=== PATIENT | female | born 1940 | race Caucasian/White ===

== ENCOUNTER 2018-04-15 19:04 | Inpatient (IN) ==
[2018-04-15 20:05] LABS: Basophils % 0.1 %; Eosinophils # 0.1 K/mcL (0.0-0.6); Eosinophils % 0.7 %; Hematocrit 34.5 % (35.3-44.9); Hemoglobin 10.1 g/dL (11.5-15.4); Immature Granulocytes % 0.5 % (0-4); Lymphocytes # 1.4 K/mcL (0.6-4.6); Lymphocytes % 18.6 %; Mean Corpuscular HGB Conc 29.3 g/dL (31.6-35.5); Mean Corpuscular Hemoglobin 17.8 pg (28.0-33.3); Mean Platelet Volume 8.8 fL (9.4-12.4); Monocytes # 1.1 K/mcL (0.0-1.3); Monocytes % 14.6 %; Platelet Count 411 K/mcL (140-400); Red Blood Count 5.66 M/mcL (3.82-4.97); Red Cell Distribution Width 21.2 % (11.5-14.5); Segmented Neutrophils % 65.5 %
--- NOTE | 2018-04-15 20:06 | Emergency Department Note ---
Disposition Clinical Impression: Colonic mass, Peritoneal carcinomatosis Bowel obstruction Qualifiers: Intestinal obstruction type: unspecified Intestinal obstruction extent: unspecified extent Qualified Code(s): K56.609 - Unspecified intestinal obstruction, unspecified as to partial versus complete obstruction Disposition: Admitted As Inpatient Condition: Fair Referrals: Lizz Ariza CNP [Primary Care Provider] - Sandeep Singh Jr, MD [Family Provider] - Forms: ED Satisfaction Letter, Work/School Release Time of Disposition: 20:16 Abdominal Pain HPI - General Chief Complaint: ED Abdominal Pain Stated Complaint: bowel blockage. Time Seen by Provider: 04/15/18 19:23 Source: patient - History of Present Illness HPI Narrative: I have personally seen and evaluated the patient along with the Medical Student. I have reviewed and confirmed the history of present illness, review of systems, family, medical, and surgical history and agree with the documentation except as documented below. Pain Scale: 2 - Related Data Home Medications Medication Instructions Recorded Confirmed Loratadine [Claritin] 10 mg PO DAILY 04/15/18 04/15/18 Ranitidine HCl [Acid Investigator Operator] 75 mg PO DAILY PRN 04/15/18 04/15/18 Allergies Allergy/AdvReac Type Severity Reaction Status Date / Time No Known Allergies Allergy Verified 04/15/18 19:53 Review of Systems: As reviewed in the HPI. All other systems reviewed are negative or normal. Abdominal Pain PMH - Past Medical History Medical history: Reports: GERD Female Surgical History: Reports: hysterectomy - Social History Smoking status: Never smoker Alcohol use: Reports: none Drug use: Reports: none Physical Exam CONSTITUTIONAL: [chronically ill appearing, alert and in no acute distress] EYES: [EOMI, clear conjunctiva, PERRLA] HENT: [Normocephalic, atraumatic, moist mucus membranes, normal oropharynx] NECK: [normal inspection, full ROM, trachea midline, no obvious swelling] PULMONARY: [normal lung sounds bilaterally, normal chest rise and fall, no respiratory distress or stridor, no wheezes, no rales, no rhonchi CARDIOVASCULAR: [regular rate, regular rhythm, normal heart sounds, no murmurs, distal extremities are warm and well perfused] GASTROINSTESTINAL: [soft, mild/mod tender in R/RLQ abd, non-rigid, mildly distended, no guarding, no rebound, normal bowel sounds] GENITOURINARY/RECTAL: [deferred] NEUROLOGIC: [Alert, oriented x3, normal speech, moves all extremities] EXTREMITIES: [Normal inspection, full ROM, no tenderness, no pedal edema, normal capillary refill] MUSCULOSKELETAL: [no gross deformities, atraumatic] SKIN: [No cyanosis, no diaphoresis, pallor, warm, no rash] PSYCHIATRIC: [normal mood and affect] - General Limitations: no limitations General appearance: alert, in no apparent distress Course Course Narrative: Patient presenting with large infiltrating mass causing colonic and small bowel obstruction with liver metastases and peritoneal carcinomatosis. Sent off for a screening labs including CVA, haptoglobin, LDH and uric acid. Patient comfortable currently. Has not been vomiting today. We will not place an NG tube at this time. She has had some pencil thin stools and weight loss recently. Did discuss that we are very concerned this is a malignant lesion and that she may have metastatic disease. She is aware and is agreeable to proceed with surgery and treatment as needed. Patient to be admitted the hospitalist service and was accepted. - Consultations Consultation #1: Spoke with Dr. Loving, will be happy to see in consult in the AM. Time: 20:06 Vital Signs Temperature 98 F 04/15/18 19:25 Pulse Rate 118 04/15/18 19:25 Respiratory Rate 16 04/15/18 19:25 Blood Pressure 158/83 04/15/18 19:25 O2 Sat by Pulse Oximetry 97 04/15/18 19:25 Temperature 98 F 04/15/18 19:44 Pulse Rate 118 04/15/18 19:44 Respiratory Rate 16 04/15/18 19:44 Blood Pressure 158/83 04/15/18 19:44 O2 Sat by Pulse Oximetry 97 04/15/18 19:44 Oxygen Delivery Oxygen Delivery Room Air Abdominal Pain - Lab Data Result diagrams: 04/15/18 19:51 Lab Results 04/15/18 Range/Units 19:51 WBC 7.7 (4.3-11.1) K/mcL RBC 5.66 H (3.82-4.97) M/mcL Hgb 10.1 L (11.5-15.4) g/dL Hct 34.5 L (35.3-44.9) % MCV 61.0 L (83.0-100.0) fL MCH 17.8 L (28.0-33.3) pg MCHC 29.3 L (31.6-35.5) g/dL RDW 21.2 H (11.5-14.5) % Plt Count 411 H (140-400) K/mcL MPV 8.8 L (9.4-12.4) fL
--- NOTE | 2018-04-15 20:07 | Emergency Department Note ---
Disposition Clinical Impression: Colonic mass, Peritoneal carcinomatosis Bowel obstruction Qualifiers: Intestinal obstruction type: unspecified Intestinal obstruction extent: unspecified extent Qualified Code(s): K56.609 - Unspecified intestinal obstruction, unspecified as to partial versus complete obstruction Disposition: Admitted As Inpatient Condition: Fair Referrals: Lizz Ariza CNP [Primary Care Provider] - Sandeep Singh Jr, MD [Family Provider] - Forms: ED Satisfaction Letter, Work/School Release Abdominal Pain HPI - General Chief Complaint: ED Abdominal Pain Stated Complaint: bowel blockage. Time Seen by Provider: 04/15/18 19:23 Source: patient Mode of arrival: ambulatory Vital Signs Reviewed: Yes - History of Present Illness HPI Narrative: The patient is a 77 year old female that presents with abdominal pain, mass found on CT, and bowel obstruction. Per patient's report, starting 4 weeks ago she started having intermittent episodes of abdominal pain that are crampy in nature and shoot through out the whole abdomen, but is the most painful in the right lower quadrant. She rates her pain a 1/10 at present but says when she get the episodes they usually get as bad as a 5/10. The pain does not radiate. There are no exacerbating and alleviating factors. Patient went and saw Dr. Lizz Muñiz who sent her for a abdominal CT. Her abdominal CT showed large infiltrating mass of the proximal ascending colon resulting in colon and small bowel obstruction with suspected liver metastases. There is peritoneal carcinomatosis with multiple peritoneal tumor nodules and small amount of ascites. Enlarged retroperitoneal lymph node and a few mildly enlarged mesenteric nodes are present. She was called just prior to arrival instructed to come to the ED for further management. Patient also admits to nausea, and vomiting over the past few weeks but did not vomit today. She also admits to decreased appetite and PO intake, 7 lb of weight loss over the past 3 weeks, fatigue, Pencil thin stool. She denies any headache, dizziness, changes in vision, chest pain, shortness of breath, back pain, hematuria, hematochezia, melena, numbness, tingling, and weakness. Pain Scale: 2 - Related Data Home Medications Medication Instructions Recorded Confirmed Loratadine [Claritin] 10 mg PO DAILY 04/15/18 04/15/18 Ranitidine HCl [Acid Profiler Hand] 75 mg PO DAILY PRN 04/15/18 04/15/18 Allergies Allergy/AdvReac Type Severity Reaction Status Date / Time No Known Allergies Allergy Verified 04/15/18 19:53 Constitutional: Reports: weakness, weight change. Denies: fever, chills Eyes: Denies: eye pain, vision change ENT ED: Denies: throat pain, congestion Cardiovascular: Denies: chest pain, palpitations, syncope Respiratory: Denies: cough, dyspnea Gastrointestinal: Reports: abdominal pain, nausea, vomiting. Denies: diarrhea, hematemesis, melena, hematochezia Genitourinary: Denies: dysuria, frequency, hematuria Musculoskeletal: Denies: back pain, neck pain Integumentary: Denies: rash, lesions Neurological: Denies: headache, weakness, numbness, paresthesias Endocrine: Reports: fatigue Abdominal Pain PMH - Past Medical History Medical history: Reports: GERD Female Surgical History: Reports: hysterectomy - Social History Smoking status: Never smoker Alcohol use: Reports: none Drug use: Reports: none Physical Exam - General Limitations: no limitations General appearance: alert, in no apparent distress - Head Head exam: atraumatic, normocephalic, normal inspection - Eye Eye exam: Present: normal appearance. Absent: scleral icterus, conjunctival injection - ENT ENT exam: mucous membranes moist, normal external ear exam - Neck Neck exam: Present: normal inspection, full ROM, trachea midline - Chest Chest inspection: Present: normal inspection, symmetric chest wall rise - Respiratory Respiratory exam: Present: normal lung sounds bilaterally. Absent: respiratory distress, wheezes - Cardiovascular Cardiovascular exam: Present: regular rate, normal rhythm, normal heart sounds. Absent: systolic murmur, diastolic murmur, rubs, gallop - Abdominal Exam Abdominal exam: Present: soft, distention, normal bowel sounds. Absent: guarding, rigidity Abdominal tenderness: Present: RLQ, mild - Extremities Exam Extremities exam: Present: normal inspection, full ROM - Neurological Exam Neurological exam: Present: alert, oriented X3 - Psychiatric Psychiatric exam: Present: normal affect, normal mood - Skin Skin exam: Present: warm, dry, intact Course Course Narrative: Pt is a 77 year old female that presented with a large ascending colon mass causing small and large bowel obstruction with suspected metastasis to the liver. CBC, CEA, Hepatic panel, LDH, haptoglobin, lipase, PTT/PT/INR, uric acid , UA were ordered. - Reevaluation(s) Reevaluation #1: Case was discussed with surgery who will evaluate the patient in the hospital. Time: 20:05 Vital Signs Temperature 98 F 04/15/18 19:25 Pulse Rate 118 04/15/18 19:25 Respiratory Rate 16 04/15/18 19:25 Blood Pressure 158/83 04/15/18 19:25 O2 Sat by Pulse Oximetry 97 04/15/18 19:25 Temperature 98 F 04/15/18 19:44 Pulse Rate 118 04/15/18 19:44 Respiratory Rate 16 04/15/18 19:44 Blood Pressure 158/83 04/15/18 19:44 O2 Sat by Pulse Oximetry 97 04/15/18 19:44 Oxygen Delivery Oxygen Delivery Room Air Abdominal Pain - Lab Data Result diagrams: 04/15/18 19:51 04/15/18 19:51 Lab Results 04/15/18 04/15/18 04/15/18 Range/Units 19:51 19:51 19:51 WBC 7.7 (4.3-11.1) K/mcL RBC 5.66 H (3.82-4.97) M/mcL Hgb 10.1 L (11.5-15.4) g/dL Hct 34.5 L (35.3-44.9) % MCV 61.0 L (83.0-100.0) fL MCH 17.8 L (28.0-33.3) pg MCHC 29.3 L (31.6-35.5) g/dL RDW 21.2 H (11.5-14.5) % Plt Count 411 H (140-400) K/mcL MPV 8.8 L (9.4-12.4) fL Immature Gran % 0.5 (0-4) % Seg Neutrophils % 65.5 % Lymphocytes % 18.6 % Monocytes % 14.6 % Eosinophils % 0.7 % Basophils % 0.1 % Neutrophils # 5.0 (1.6-8.9) K/mcL Lymphocytes # 1.4 (0.6-4.6) K/mcL Monocytes # 1.1 (0.0-1.3) K/mcL Eosinophils # 0.1 (0.0-0.6) K/mcL Basophils # 0.0 (0.0-0.2) K/mcL Platelet Estimate Increased H (Normal) Anisocytosis 2+ A (Not Present) Microcytosis Present A (Not Present) PT 13.5 H (9.4-12.1) Seconds INR 1.2 APTT 32.2 (26.0-36.0) Seconds Sodium 127 L (136-145) mEq/L Potassium 4.0 (3.5-5.1) mEq/L Chloride 94 L (98-107) mEq/L Carbon Dioxide 24 (23-29) mEq/L BUN 10 (8-23) mg/dL Creatinine 0.59 L (0.60-1.20) mg/dL Est GFR ( Amer) > 60 (> 60) Est GFR (Non-Af Amer) > 60 (> 60) BUN/Creatinine Ratio 17 (6-26) Glucose 100 (70-105) mg/dL Calculated Osmolality 263 L (280-300) Uric Acid (2.3-7.6) mg/dL Calcium 9.3 (8.6-10.3) mg/dL Total Bilirubin 0.6 (0.3-1.0) mg/dL Direct Bilirubin 0.2 (0.0-0.2) mg/dL Indirect Bilirubin 0.4 (0.0-1.2) mg/dL AST 15 (13-39) Units/L ALT 10 (7-52) Units/L Alkaline Phosphatase 86 (34-104) Units/L Lactate Dehydrogenase (140-271) Units/L Serum Total Protein 6.5 (6.4-8.9) g/dL Albumin 4.0 (3.5-5.7) g/dL Globulin 2.5 (2.4-3.5) g/dL Albumin/Globulin Ratio 1.6 (1.1-2.2) Lipase 15 (11-82) Units/L 04/15/18 Range/Units 19:51 WBC (4.3-11.1) K/mcL RBC (3.82-4.97) M/mcL Hgb (11.5-15.4) g/dL Hct (35.3-44.9) % MCV (83.0-100.0) fL MCH (28.0-33.3) pg MCHC (31.6-35.5) g/dL RDW (11.5-14.5) % Plt Count (140-400) K/mcL MPV (9.4-12.4) fL Immature Gran % (0-4) % Seg Neutrophils % % Lymphocytes % % Monocytes % % Eosinophils % % Basophils % % Neutrophils # (1.6-8.9) K/mcL Lymphocytes # (0.6-4.6) K/mcL Monocytes # (0.0-1.3) K/mcL Eosinophils # (0.0-0.6) K/mcL Basophils # (0.0-0.2) K/mcL Platelet Estimate (Normal) Anisocytosis (Not Present) Microcytosis (Not Present) PT (9.4-12.1) Seconds INR APTT (26.0-36.0) Seconds Sodium (136-145) mEq/L Potassium (3.5-5.1) mEq/L Chloride (98-107) mEq/L Carbon Dioxide (23-29) mEq/L BUN (8-23) mg/dL Creatinine (0.60-1.20) mg/dL Est GFR ( Amer) (> 60) Est GFR (Non-Af Amer) (> 60) BUN/Creatinine Ratio (6-26) Glucose (70-105) mg/dL Calculated Osmolality (280-300) Uric Acid 3.4 (2.3-7.6) mg/dL Calcium (8.6-10.3) mg/dL Total Bilirubin (0.3-1.0) mg/dL Direct Bilirubin (0.0-0.2) mg/dL Indirect Bilirubin (0.0-1.2) mg/dL AST (13-39) Units/L ALT (7-52) Units/L Alkaline Phosphatase (34-104) Units/L Lactate Dehydrogenase 144 (140-271) Units/L Serum Total Protein (6.4-8.9) g/dL Albumin (3.5-5.7) g/dL Globulin (2.4-3.5) g/dL Albumin/Globulin Ratio (1.1-2.2) Lipase (11-82) Units/L
[2018-04-15 20:11] LABS: INR 1.2; Prothrombin Time 13.5 Seconds (9.4-12.1)
[2018-04-15 20:13] LABS: Activated Partial Thrombo Time 32.2 Seconds (26.0-36.0)
--- NOTE | 2018-04-15 20:17 | Emergency Department Note ---
Disposition Clinical Impression: Bowel obstruction, Colonic mass, Peritoneal carcinomatosis Disposition: Admitted As Inpatient Condition: Fair General Adult HPI - General Chief complaint: ED Abdominal Pain Stated complaint: bowel blockage. Time Seen by Provider: 04/15/18 19:23 Source: patient Mode of arrival: ambulatory Limitations: no limitations Nursing Notes Reviewed: Yes Vital Signs Reviewed: Yes - History of Present Illness Pain Scale: 2 - Related Data Home Medications Medication Instructions Recorded Confirmed Loratadine [Claritin] 10 mg PO DAILY 04/15/18 04/16/18 Ranitidine HCl [Acid Cherry Picker Operator] 75 mg PO DAILY PRN 04/15/18 04/16/18 Allergies Allergy/AdvReac Type Severity Reaction Status Date / Time No Known Allergies Allergy Verified 04/15/18 19:53 Constitutional: Reports: weakness, weight change. Denies: fever, chills Eyes: Denies: eye pain, vision change ENT ED: Denies: throat pain, congestion Cardiovascular: Denies: chest pain, palpitations, syncope Respiratory: Denies: cough, dyspnea Gastrointestinal: Reports: abdominal pain, nausea, vomiting. Denies: diarrhea, hematemesis, melena, hematochezia Genitourinary: Denies: dysuria, frequency, hematuria Musculoskeletal: Denies: back pain, neck pain Integumentary: Denies: rash, lesions Neurological: Denies: headache, weakness, numbness, paresthesias Endocrine: Reports: fatigue Past Medical History - Past Medical History Medical history: Reports: GERD - Social History Smoking Status: Never smoker Alcohol use: Reports: none Drug use: Reports: none Physical Exam - General Limitations: no limitations General appearance: alert, in no apparent distress Course Vital Signs Temperature 98 F 04/15/18 19:25 Pulse Rate 118 04/15/18 19:25 Respiratory Rate 16 04/15/18 19:25 Blood Pressure 158/83 04/15/18 19:25 O2 Sat by Pulse Oximetry 97 04/15/18 19:25 Temperature 97.9 F 04/18/18 07:43 Pulse Rate 103 04/18/18 07:43 Respiratory Rate 16 04/18/18 07:43 Blood Pressure 145/80 04/18/18 07:43 O2 Sat by Pulse Oximetry 94 04/18/18 03:21 Oxygen Delivery Oxygen Delivery Room Air Medical Decision Making - Lab Data Result diagrams: 04/18/18 06:29 04/18/18 06:29 Lab Results 04/15/18 04/15/18 04/15/18 Range/Units 19:51 19:51 19:51 WBC 7.7 (4.3-11.1) K/mcL RBC 5.66 H (3.82-4.97) M/mcL Hgb 10.1 L (11.5-15.4) g/dL Hct 34.5 L (35.3-44.9) % MCV 61.0 L (83.0-100.0) fL MCH 17.8 L (28.0-33.3) pg MCHC 29.3 L (31.6-35.5) g/dL RDW 21.2 H (11.5-14.5) % Plt Count 411 H (140-400) K/mcL MPV 8.8 L (9.4-12.4) fL Immature Gran % 0.5 (0-4) % Seg Neutrophils % 65.5 % Lymphocytes % 18.6 % Monocytes % 14.6 % Eosinophils % 0.7 % Basophils % 0.1 % Neutrophils # 5.0 (1.6-8.9) K/mcL Lymphocytes # 1.4 (0.6-4.6) K/mcL Monocytes # 1.1 (0.0-1.3) K/mcL Eosinophils # 0.1 (0.0-0.6) K/mcL Basophils # 0.0 (0.0-0.2) K/mcL Platelet Estimate Increased H (Normal) Anisocytosis 2+ A (Not Present) Microcytosis Present A (Not Present) PT 13.5 H (9.4-12.1) Seconds INR 1.2 APTT 32.2 (26.0-36.0) Seconds Sodium 127 L (136-145) mEq/L Potassium 4.0 (3.5-5.1) mEq/L Chloride 94 L (98-107) mEq/L Carbon Dioxide 24 (23-29) mEq/L BUN 10 (8-23) mg/dL Creatinine 0.59 L (0.60-1.20) mg/dL Est GFR ( Amer) > 60 (> 60) Est GFR (Non-Af Amer) > 60 (> 60) BUN/Creatinine Ratio 17 (6-26) Glucose 100 (70-105) mg/dL Calculated Osmolality 263 L (280-300) Uric Acid (2.3-7.6) mg/dL Calcium 9.3 (8.6-10.3) mg/dL Total Bilirubin 0.6 (0.3-1.0) mg/dL Direct Bilirubin 0.2 (0.0-0.2) mg/dL Indirect Bilirubin 0.4 (0.0-1.2) mg/dL AST 15 (13-39) Units/L ALT 10 (7-52) Units/L Alkaline Phosphatase 86 (34-104) Units/L Lactate Dehydrogenase (140-271) Units/L Serum Total Protein 6.5 (6.4-8.9) g/dL Albumin 4.0 (3.5-5.7) g/dL Globulin 2.5 (2.4-3.5) g/dL Albumin/Globulin Ratio 1.6 (1.1-2.2) Lipase 15 (11-82) Units/L Carcinoembryonic Ag (Less than 5.0) ng/mL 04/15/18 04/15/18 Range/Units 19:51 19:51 WBC (4.3-11.1) K/mcL RBC (3.82-4.97) M/mcL Hgb (11.5-15.4) g/dL Hct (35.3-44.9) % MCV (83.0-100.0) fL MCH (28.0-33.3) pg MCHC (31.6-35.5) g/dL RDW (11.5-14.5) % Plt Count (140-400) K/mcL MPV (9.4-12.4) fL Immature Gran % (0-4) % Seg Neutrophils % % Lymphocytes % % Monocytes % % Eosinophils % % Basophils % % Neutrophils # (1.6-8.9) K/mcL Lymphocytes # (0.6-4.6) K/mcL Monocytes # (0.0-1.3) K/mcL Eosinophils # (0.0-0.6) K/mcL Basophils # (0.0-0.2) K/mcL Platelet Estimate (Normal) Anisocytosis (Not Present) Microcytosis (Not Present) PT (9.4-12.1) Seconds INR APTT (26.0-36.0) Seconds Sodium (136-145) mEq/L Potassium (3.5-5.1) mEq/L Chloride (98-107) mEq/L Carbon Dioxide (23-29) mEq/L BUN (8-23) mg/dL Creatinine (0.60-1.20) mg/dL Est GFR ( Amer) (> 60) Est GFR (Non-Af Amer) (> 60) BUN/Creatinine Ratio (6-26) Glucose (70-105) mg/dL Calculated Osmolality (280-300) Uric Acid 3.4 (2.3-7.6) mg/dL Calcium (8.6-10.3) mg/dL Total Bilirubin (0.3-1.0) mg/dL Direct Bilirubin (0.0-0.2) mg/dL Indirect Bilirubin (0.0-1.2) mg/dL AST (13-39) Units/L ALT (7-52) Units/L Alkaline Phosphatase (34-104) Units/L Lactate Dehydrogenase 144 (140-271) Units/L Serum Total Protein (6.4-8.9) g/dL Albumin (3.5-5.7) g/dL Globulin (2.4-3.5) g/dL Albumin/Globulin Ratio (1.1-2.2) Lipase (11-82) Units/L Carcinoembryonic Ag 1.1 (Less than 5.0) ng/mL Attestation Statement - Attestation Attestation: This documentation is done with the assistance of Dragon dictation. Despite efforts made to ensure accuracy, there may be inaccuracies in reed fixer or spelling and typographical errors. I examined this patient and my medical decision-making was reviewed with the Resident Physician. I agree with the documented findings, disposition and treatment plan as described except to the extent set forth below. Patient seen and evaluated on arrival with Dr. Pearson and myself, I agree with his evaluation and management plan, supervise care the patient's stay. Patient had an outpatient CT done by the primary care physician. Patient was called by the physician that have them come back to the ER as her CT head showed a colon mass with small bowel obstruction and liver metastasis. Were getting a handout on lab work. We spoke with surgery are radiated we will bring her into the hospital with oncology consult surgery consult. Patient's in agreement with this plan.
[2018-04-15 20:28] LABS: Anisocytosis 2+ (Not Present); Microcytosis Present (Not Present); Platelet Estimate Increased (Normal)
[2018-04-15 20:29] LABS: Alanine Aminotransferase 10 Units/L (7-52); Albumin/Globulin Ratio 1.6 (1.1-2.2); Alkaline Phosphatase 86 Units/L (34-104); Aspartate Amino Transferase 15 Units/L (13-39); BUN/Creatinine Ratio 17 (6-26); Bilirubin,Direct 0.2 mg/dL (0.0-0.2); Bilirubin,Indirect 0.4 mg/dL (0.0-1.2); Bilirubin,Total 0.6 mg/dL (0.3-1.0); Blood Urea Nitrogen 10 mg/dL (8-23); Calcium 9.3 mg/dL (8.6-10.3); Carbon Dioxide 24 mEq/L (23-29); Chloride 94 mEq/L (98-107); Globulin 2.5 g/dL (2.4-3.5); Glucose 100 mg/dL (70-105); Lipase 15 Units/L (11-82); Osmolality,Calculated 263 (280-300); Sodium 127 mEq/L (136-145); Total Protein 6.5 g/dL (6.4-8.9); eGFR For Non-African Americans > 60 (> 60)
[2018-04-15 20:30] LABS: Uric Acid 3.4 mg/dL (2.3-7.6)
[2018-04-15] MEDS ORDERED: Naloxone 0.4 MG/ML INJ IVP PRN (20:47)
[2018-04-15] MEDS ORDERED: *HR* Labetalol 20 MG/4 ML SYRINGE IVP PRN (21:12)
--- NOTE | 2018-04-15 21:19 | Internal Med History&Physical ---
<Tristin Stanford - Last Filed: 04/15/18 21:51> Date of Encounter: 04/15/18 Time of Encounter: 21:14 Internal Medicine - H&P: HPI Chief complaint: Abdominal pain Admitted From: Emergency Dept Plans for Post Hospital Care: Home History of present illness: Ms. Mayo is a 77 year old female with limited medical history who presents to the ED on request of her primary care provider due to findings of a CT scan. She apparently has been having abdominal pain and constipation for approximately 2 months. She says that specifically, she has been having right lower quadrant abdominal pain which is nonsevere with radiation towards her upper abdomen over the past 4 weeks. She says that this is started gradually, but has Progressively Worse. She Also Admits to Some Nausea, vomiting, pencil size stool, and significant weight loss, and most concerning she has had diarrhea which is been watery in nature over the past couple of weeks as. She says that she has had 30 pounds weight loss over the past 3 years, and 7 pounds in the past 3 weeks alone. She says that in addition of this, she has had very poor appetite, and has barely had anything to eat or drink over the past couple of days. Nothing seems to make any of this any better, although eating does seem to make it somewhat worse. She finally went to see her primary care provider 2 days ago, at which time a CT of her abdomen was ordered. On the CT of the abdomen it was noted that there was a large infiltrating mass of the proximal ascending colon with resultant large and small bowel obstruction. There also noted liver metastases, peritoneal carcinomatosis and multiple peritoneal tumor nodules with some ascites. Following results of the CT, the patient's PCP apparently advised her to return to the ED for further workup. In the ED, Dr. Loving with [facility] was consultative and agreed to see the patient in the morning. At this time, she is not having significant abdominal pain and she has no specific acute complaints. PMH: Gerd, Remote hx of htn which has been managed without meds Surgical Hx: Hysterectomy, tubal ligation Fam Hx: Mom Afib, Dad CVA, Son MD. No cancer Social Hx: Non smoker, No alcohol use. Drinks coffee. Worked as a nurses aide, retired 3 years ago. Lives at home, daught lives with her but is moving out. Poor appetitie and diet recently. Limited exercise. Past Med Surg Social Fam HX - Past Medical History Medical history: GERD - Social History Smoking Status: Never smoker Alcohol use: none Drug use: none Internal Medicine - H&P: Meds Loratadine [Claritin] 10 mg PO DAILY 04/15/18 [History] Ranitidine HCl [Acid Psychiatric Social Worker Supervisor] 75 mg PO DAILY PRN 04/15/18 [History] 3 Allergy/AdvReac Type Severity Reaction Status Date / Time No Known Allergies Allergy Verified 04/15/18 19:53 All Systems PM: A 10-system review of systems was performed and is negative for pertinent findings except as documented above in the HPI. Review of systems: Constitutional: Denies fevers, chills, generalized fatigue. Admits to 30 pounds weight loss over 3 years, 6 pounds in 3 weeks Head/Neck: Denies [place], neck stiffness EENT: Denies vision changes/blurriness, rhinorrhea, congestion, sore throat CVS: Denies chest pain, palpitations, [place], orthopnea, edema, PND Pulm: Denies SOB, cough, sputum, hemoptysis, wheezing GI: Admits to right lower quadrant abdominal pain, nausea, vomiting. Some constipation as well. As well as some diarrhea. Denies hematochezia or melena. : Denies dysuria, increased frequency, urgency, hematuria Heme: Denies ease of bleeding or bruising MSK: Denies joint pain, limited ROM Skin: Denies rashes, ulcers, color changes Neuro: Denies [place], paresthesias, focal deficits, ataxia - Constitutional Vitals: Temp Pulse Resp BP Pulse Ox 98 F 112 15 131/90 98 04/15/18 19:44 04/15/18 20:30 04/15/18 20:30 04/15/18 20:30 04/15/18 20:30 Exam: Gen: Vitals noted. No acute distress. HEENT: Normocephalic, atraumatic. Foul odor from breath Neck: Supple. No adenopathy. Cardiac: Regular rate and rhythm, rapid, no murmur, +S1/S2 Pulmonary: CTA bilaterally, no wheezes, rales or rhonchi, equal chest expansion Abdomen: soft, very mild tenderness to palpation, no guarding. There is a firmness in the right lower quadrant which is more significant than the rest of her abdomen. This is tender to palpation. Extremities: no BLE edema, nontender calf, no cyanosis or clubbing Neuro: moves all extremities, no focal deficits. A&Ox3 Psych: Appropriate mood and behavior Internal Med - H&P Results - Labs CBC & Chem 7: 04/15/18 19:51 04/15/18 19:51 Labs: Short CBC 04/15/18 Range/Units 19:51 WBC 7.7 (4.3-11.1) K/mcL Hgb 10.1 L (11.5-15.4) g/dL Hct 34.5 L (35.3-44.9) % Plt Count 411 H (140-400) K/mcL Neutrophils # 5.0 (1.6-8.9) K/mcL BMP 04/15/18 19:51 Sodium 127 L Potassium 4.0 Chloride 94 L Carbon Dioxide 24 BUN 10 Creatinine 0.59 L Glucose 100 Calcium 9.3 Liver Function 04/15/18 Range/Units 19:51 Total Bilirubin 0.6 (0.3-1.0) mg/dL Direct Bilirubin 0.2 (0.0-0.2) mg/dL AST 15 (13-39) Units/L ALT 10 (7-52) Units/L Alkaline Phosphatase 86 (34-104) Units/L Albumin 4.0 (3.5-5.7) g/dL - Assessment and plan (1) Colonic mass Current Visit: Yes Status: Acute Assessment and plan: Colonic mass with apparent metastasis including peritoneal carcinomatosis, liver metastases, retroperitoneal lymph node association Demonstrated on CT of the abdomen and pelvis which was ordered by PCP Patient has had symptoms of obstruction associated with this, however it appears to be partial in nature She currently is not having problems with constipation or diarrhea She does say that she has not been eating, primarily because she has no appetite Surgery was consulted from the ED, agrees to see the patient in the morning We will admit the patient and make her NPO for surgical consultation (2) Hyponatremia Current Visit: Yes Status: Acute Assessment and plan: Hyponatremia, appears to be hypovolemic to euvolemic in nature Patient does not appear overtly hypovolemic, mucous membranes appear moist ever she does state that she has been drinking less fluids Additionally, the patient does not endorse history of diarrhea over the past several weeks and poor nutritional intake Suspect that this is a mixed etiology secondary to both extrarenal losses as well as poor nutritional status I will start the patient on normal saline at this time, 100 mLs/hr. Urine labs pending Goal correction rate 6-8 mEq in the first 24 hours Repeat BMP in the morning. Repeat Sodium in 6 hours (3) Tachycardia Current Visit: Yes Status: Acute Assessment and plan: Tachycardia, likely secondary to volume loss We will replete the patient's fluids conservatively given hyponatremia and monitor heart rate (4) Hypertension Current Visit: Yes Status: Acute Assessment and plan: The patient says she has a history of hypertension, she says that more recently her blood pressure is been low At time of admission, the patient's blood pressure was 140/88, however she has been demonstrating borderline high blood pressure while she has been here At this time I will continuie to monitor, consider adding a medication if needed Qualifiers: Hypertension type: essential hypertension Qualified Code(s): I10 - Essential (primary) hypertension (5) DVT prophylaxis Current Visit: Yes Status: Acute Assessment and plan: Subcutaneous heparin (6) Anemia Current Visit: Yes Status: Acute Assessment and plan: Anemia, likely secondary to GI cancer We will repeat CBC in the morning Transfuse for hemoglobin less than 7 Qualifiers: Anemia type: iron deficiency Iron deficiency anemia type: chronic blood loss Qualified Code(s): D50.0 - Iron deficiency anemia secondary to blood loss (chronic) - Time Spent With Patient Total time spent is greater than 50% in coordination of care (as documented) at patient's floor/unit and/or counseling patient: <Candi Gamez - Last Filed: 04/15/18 22:05> Date of Encounter: 04/15/18 Internal Medicine - H&P: HPI History of present illness: Ms. Mayo is a 77 year old female All Systems PM: A 10-system review of systems was performed and is negative for pertinent findings except as documented above in the HPI. - Constitutional Vitals: Temp Pulse Resp BP Pulse Ox 98 F 112 15 131/90 98 04/15/18 19:44 04/15/18 20:30 04/15/18 20:30 04/15/18 20:30 04/15/18 20:30 Internal Med - H&P Results - Labs CBC & Chem 7: 04/15/18 19:51 04/15/18 19:51 - Assessment and plan (1) Colonic mass Current Visit: Yes Status: Acute (2) Hyponatremia Current Visit: Yes Status: Acute (3) Tachycardia Current Visit: Yes Status: Acute (4) Hypertension Current Visit: Yes Status: Acute Qualifiers: Hypertension type: essential hypertension Qualified Code(s): I10 - Essential (primary) hypertension (5) DVT prophylaxis Current Visit: Yes Status: Acute (6) Anemia Current Visit: Yes Status: Acute Qualifiers: Anemia type: iron deficiency Iron deficiency anemia type: chronic blood loss Qualified Code(s): D50.0 - Iron deficiency anemia secondary to blood loss (chronic) - Time Spent With Patient Total time spent is greater than 50% in coordination of care (as documented) at patient's floor/unit and/or counseling patient: - Attending Attestation Nae Mayo is a 77 year old woman who denies any prior medical history who presents to the ER on referral by her PCP after having a CT scan done due to chronic constipation and abdominal pain. The findings were consistent with metastatic colon cancer. She reports a history of anorexia and weight loss over the past few months coupled with episodes of diarrhea intercalated with pencil-thin stool. She also has increasing abdominal girth, bloating and discomfort. Physical exam is remarkable for a pale-skinned woman lying in bed in NAD, (+) conjunctivae pallor and dry skin/mucous membranes, distended abdomen with mild tenderness on RLQ palpation but no peritoneal reaction. Large LN palpable on the right inguinal area. Labs reviewed remarkable for Hgb 10.1, NA [address] scan reviewed independently by me and findings noted. Will admit for anemia likely of chronic disease, hyponatremia & hypochloremia likely hypovolemic in origin secondary to GI losses, and most importantly constipation secondary to large obstructive colonic mass with infiltration and signs of peritoneal carcinomatosis. Will benefit from palliative consultation. Surgery/GI consults are needed. IVF for rehydration. Pain control as needed. Heparin SubQ DVT prophylaxis. Prognosis is bleak. ELMO HUNT.
[2018-04-15] MEDS ORDERED: Ondansetron 4 MG/2 ML VIAL IVP PRN (21:29)
[2018-04-15] MEDS: 0.9 % Sodium Chloride 1,000 ML IVC SCH (23:32)
[2018-04-15] MEDS: *HR* Heparin 5,000 UNIT/ML VIAL SQ SCH (23:36)
[2018-04-16 04:14] LABS: Basophils % 0.3 %; Eosinophils # 0.1 K/mcL (0.0-0.6); Eosinophils % 0.9 %; Hematocrit 31.4 % (35.3-44.9); Hemoglobin 9.1 g/dL (11.5-15.4); Immature Granulocytes % 0.3 % (0-4); Mean Corpuscular Hemoglobin 17.7 pg (28.0-33.3); Monocytes # 0.9 K/mcL (0.0-1.3); Monocytes % 15.3 %; Neutrophils # 3.8 K/mcL (1.6-8.9); Platelet Count 352 K/mcL (140-400); Red Blood Count 5.15 M/mcL (3.82-4.97); Red Cell Distribution Width 21.3 % (11.5-14.5); Segmented Neutrophils % 65.2 %
[2018-04-16 04:34] LABS: Anisocytosis 1+ (Not Present); Hypochromasia Present (Not Present); Platelet Estimate Normal (Normal); Poikilocytosis 1+ (Not Present)
[2018-04-16 04:36] LABS: BUN/Creatinine Ratio 17 (6-26); Blood Urea Nitrogen 9 mg/dL (8-23); Calcium 8.8 mg/dL (8.6-10.3); Carbon Dioxide 24 mEq/L (23-29); Chloride 98 mEq/L (98-107); Glucose 87 mg/dL (70-105); Magnesium 2.1 mg/dL (1.6-2.6); Osmolality,Calculated 270 (280-300); Phosphorous 3.9 mg/dL (2.7-4.5); Potassium 3.9 mEq/L (3.5-5.1); Sodium 131 mEq/L (136-145); eGFR For Non-African Americans > 60 (> 60)
[2018-04-16] MEDS: *HR* Heparin 5,000 UNIT/ML VIAL SQ SCH ×3 (05:08→22:27)
[2018-04-16 05:37] LABS: Bilirubin,Urine Negative (Negative); Blood,Urine Negative (Negative); Clarity,Urine Clear (Clear); Color,Urine Yellow (Yellow); Glucose,Urine (UA) Normal (Normal); Ketones,Urine 40 mg/dL (Negative); Leukocyte Esterase,Urine Moderate (Negative); Nitrite,Urine Negative (Negative); PH,Urine 6.5 pH Units (5.0-8.0); Protein,Urine Negative (Neg-Trace); Specific Gravity,Urine 1.027 (1.010-1.025)
[2018-04-16 05:38] LABS: Bacteria,Urine Few per hpf (None-Few); Hyaline Casts,Urine None Seen per lpf (None-Few); RBC,Urine 0-3 per hpf (0-3); Squamous Epithelial Cell,Urine Many per lpf (None-Few)
[2018-04-16 05:58] LABS: Sodium, Urine 127.8 mEq/L
--- NOTE | 2018-04-16 09:54 | Internal Med Progress Note ---
Hospitalist Progress Note - Encounter Date of Encounter: 04/16/18 Time of Encounter: 10:00 - Exam Vitals: Temp Pulse Resp BP Pulse Ox 98.0 F 103 14 151/84 96 04/16/18 07:02 04/16/18 07:02 04/16/18 07:02 04/16/18 07:02 04/16/18 07:02 Exam: Gen: Vitals noted. No acute distress. HEENT: Normocephalic, atraumatic. Foul odor from breath Neck: Supple. No adenopathy. Cardiac: Regular rate and rhythm, rapid, no murmur, +S1/S2 Pulmonary: CTA bilaterally, no wheezes, rales or rhonchi, equal chest expansion Abdomen: soft, very mild tenderness to palpation, no guarding. There is a firmness in the right lower quadrant which is more significant than the rest of her abdomen. This is tender to palpation. Extremities: no BLE edema, nontender calf, no cyanosis or clubbing Neuro: moves all extremities, no focal deficits. A&Ox3 Psych: Appropriate mood and behavior - Assessment and Plan (1) Colonic mass Current Visit: Yes Status: Acute Assessment and Plan: Colonic mass with apparent metastasis including peritoneal carcinomatosis, liver metastases, retroperitoneal lymph node association Demonstrated on CT of the abdomen and pelvis which was ordered by PCP Patient has had symptoms of obstruction associated with this, however it appears to be partial in nature Was seen by surgery who dtermined she bri has colon cancer with mets. Recommend oncology consult Will start diet per dietitian (2) Hyponatremia Current Visit: Yes Status: Acute Assessment and Plan: Hyponatremia, appears to be hypovolemic to euvolemic in nature Improved with IV fluids (3) Tachycardia Current Visit: Yes Status: Acute Assessment and Plan: Tachycardia, likely secondary to volume loss We will replete the patient's fluids conservatively given hyponatremia and monitor heart rate (4) Hypertension Current Visit: Yes Status: Acute Assessment and Plan: The patient says she has a history of hypertension, she says that more recently her blood pressure is been low At time of admission, the patient's blood pressure was 140/88, however she has been demonstrating borderline high blood pressure while she has been here At this time I will continuie to monitor, consider adding a medication if needed (5) Anemia Current Visit: Yes Status: Acute Assessment and Plan: Anemia, likely secondary to GI cancer We will repeat CBC in the morning Transfuse for hemoglobin less than 7 (6) DVT prophylaxis Current Visit: Yes Status: Acute Assessment and Plan: Subcutaneous heparin - Time Spent with Patient Total time spent is greater than 50% in coordination of care (as documented) at patient's floor/unit and/or counseling patient: Internal Medicine: Result - Labs CBC & Chem 7: 04/16/18 03:53 04/16/18 03:53 Labs: Short CBC 04/16/18 Range/Units 03:53 WBC 5.8 (4.3-11.1) K/mcL Hgb 9.1 L (11.5-15.4) g/dL Hct 31.4 L (35.3-44.9) % Plt Count 352 (140-400) K/mcL Neutrophils # 3.8 (1.6-8.9) K/mcL BMP 04/16/18 03:53 Sodium 131 L Potassium 3.9 Chloride 98 Carbon Dioxide 24 BUN 9 Creatinine 0.53 L Glucose 87 Calcium 8.8 Urine 04/16/18 Range/Units 05:17 Urine Color Yellow (Yellow) Urine Clarity Clear (Clear) Urine pH 6.5 (5.0-8.0) pH Units Ur Specific [place] 1.027 H (1.010-1.025) Urine Protein Negative (Neg-Trace) mg/dL Urine Glucose (UA) Normal (Normal) mg/dL - ABG Interpretation ABG results: PT/INR, D-dimer PT 13.5 Seconds (9.4-12.1) H 04/15/18 19:51 Consult Discharge Plan - Plan Referrals: Lizz Ariza CNP [Primary Care Provider] - Sandeep Singh Jr, MD [Family Provider] - (4) Hypertension Qualifiers: Hypertension type: essential hypertension Qualified Code(s): I10 - Essential (primary) hypertension (5) Anemia Qualifiers: Anemia type: iron deficiency Iron deficiency anemia type: chronic blood loss Qualified Code(s): D50.0 - Iron deficiency anemia secondary to blood loss ( chronic)
[2018-04-16] MEDS: 0.9 % Sodium Chloride 1,000 ML IVC SCH (10:06)
--- NOTE | 2018-04-16 10:48 | General Surgery Progress Note ---
<Salty Rausch - Last Filed: 04/16/18 13:06> Date of Encounter: 04/16/18 Time of Encounter: 09:30 - Assessment and Plan (1) Colon cancer metastasized to multiple sites Current Visit: Yes Status: Acute Surgery Consulted by ED. Patient diagnosed with colonic mass w/ apparent metastasis including peritoneal carcinomatosis, liver metastasis, retroperitoneal lymph node association demonstrated by CT adbodmen/pelvis. Plan: -Consult dietitian to start on elemental diet -continue IV fluids -oncology to be consulted on wednesday -further recommendation pending -patient informed of diagnosis by Dr. Loving. Took diagnosis as well as can be expected. (2) Small bowel obstruction Current Visit: Yes Status: Acute NPO until elemental diet started -consider NG tube if becomes symptomatic -zofran prn for nausea (3) Anemia due to GI blood loss Current Visit: Yes Status: Acute -hemoglobin level 9.1 from 10.1, suspect due to colon cancer -IV protonix -Trend daily CBC -Type and screen completed, transfuse for less then 7, If symptomatic Liquids with supplement, ensure clear Consulted dietitian Subjective Patient reports: no new complaints, voiding w/o difficulty, flatus, bowel movement, afebrile Narrative: Patient is NPO for last week. Objective Vital Signs - Last 8 Hours Temp Pulse Resp BP Pulse Ox 04/16/18 07:02 98.0 F 103 14 151/84 96 04/16/18 04:24 97.2 F L 102 14 151/76 98 Intake and Output 04/15/18 04/16/18 04/16/18 23:59 07:59 15:59 Intake Total 0 / 0 0 / 0 1000 / 1000 Output Total 300 / 300 Balance 0 / 0 -300 / -300 1000 / 1000 Intake: IV Fluids 1000 / 1000 0.9 % Sodium Chloride 1,000 ML 1000 / 1000 @ 100 mls/hr IVC .Q10H [facility] Rx#: [id number] Oral 0 / 0 0 / 0 Output: Urine 300 / 300 Other: Meal NPO BREAKFAST # Voids 1 Weight 53.4 kg 53.4 kg Blood Glucose* 82 Patient Weight 04/16/18 23:59 Weight 53.4 kg - General physical appearance cachectic - Neck Neck exam: trachea midline - Respiratory normal expansion, normal respiratory effort, clear to percussion, clear to auscultation - Cardiovascular Cardiovascular exam: Present: RRR - Abdomen Abdomen: Present: bowel sounds present, soft, non tender - Integumentary no rash - Musculoskeletal normal gait, normal posture - Psychiatric oriented to time, oriented to person, oriented to place, speech is normal - Labs 04/16/18 03:53 04/16/18 03:53 Diabetes panel 04/16/18 Range/Units 03:53 Sodium 131 L (136-145) mEq/L Potassium 3.9 (3.5-5.1) mEq/L Chloride 98 (98-107) mEq/L Carbon Dioxide 24 (23-29) mEq/L BUN 9 (8-23) mg/dL Creatinine 0.53 L (0.60-1.20) mg/dL Glucose 87 (70-105) mg/dL Calcium 8.8 (8.6-10.3) mg/dL Calcium panel 04/16/18 Range/Units 03:53 Calcium 8.8 (8.6-10.3) mg/dL Phosphorus 3.9 (2.7-4.5) mg/dL Pituitary panel 04/16/18 Range/Units 03:53 Sodium 131 L (136-145) mEq/L Potassium 3.9 (3.5-5.1) mEq/L Chloride 98 (98-107) mEq/L Carbon Dioxide 24 (23-29) mEq/L BUN 9 (8-23) mg/dL Creatinine 0.53 L (0.60-1.20) mg/dL Glucose 87 (70-105) mg/dL Calcium 8.8 (8.6-10.3) mg/dL Adrenal panel 04/16/18 Range/Units 03:53 Sodium 131 L (136-145) mEq/L Potassium 3.9 (3.5-5.1) mEq/L Chloride 98 (98-107) mEq/L Carbon Dioxide 24 (23-29) mEq/L BUN 9 (8-23) mg/dL Creatinine 0.53 L (0.60-1.20) mg/dL Glucose 87 (70-105) mg/dL Calcium 8.8 (8.6-10.3) mg/dL Consult Discharge Plan - Plan Referrals: Lizz Ariza CNP [Primary Care Provider] - Sandeep Singh Jr, MD [Family Provider] - <Ammon Loving - Last Filed: 04/17/18 17:30> Date of Encounter: 04/16/18 - Assessment and Plan (1) Colon cancer metastasized to multiple sites Current Visit: Yes Status: Acute The patient is seen and evaluated with the medical student in the resident. Care plan as outlined. We will continue to follow along with our hospitalist colleagues to maximize her outcomes Ammon Loving MD FACS Subjective Narrative: The patient appears to have a high-grade partial bowel obstruction after reviewing the CAT scan films. His appears to be secondary to a mass in the right lower quadrant there are also multiple masses in the mesentery and pelvis. There appeared to be liver metastasis as well as ascites. My preference is to review the patient's care with oncology and possibly palliative care prior to any surgical recommendations. I do not believe surgery would be implemented for curative intent. Likely, palliative procedure may be necessary. Objective Vital Signs - Last 8 Hours Temp Pulse Resp BP Pulse Ox 04/17/18 14:40 98.3 F 108 16 164/82 95 04/17/18 10:08 98.5 F 110 16 154/91 97 Intake and Output 04/17/18 04/17/18 04/17/18 07:59 15:59 23:59 Intake Total 1340 / 1340 270 / 270 Output Total 900 / 900 900 / 900 Balance 440 / 440 -630 / -630 Intake: IV Fluids 1000 / 1000 270 / 270 0.9 % Sodium Chloride 1,000 ML 1000 / 1000 @ 100 mls/hr IVC .Q10H [facility] Rx#: [id number] Venofer 400 MG In 0.9 % Sodium 270 / 270 Chloride 250 ML @ 120 mls/hr IVPB ONCE ONE Rx#:[id number] Oral 340 / 340 Output: Urine 900 / 900 900 / 900 Other: Meal NPO LUNCH # Voids 1 # Bowel Movements 0 Weight 53.9 kg Blood Glucose* 70 77 Patient Weight 04/17/18 23:59 Weight 53.9 kg - General physical appearance well developed, chronically ill, other (Frail. Skin is pale) - Respiratory normal expansion, normal respiratory effort, clear to percussion, clear to auscultation - Cardiovascular Cardiovascular exam: Present: RRR, no murmurs/rubs/gallops - Abdomen Abdomen: Present: bowel sounds present, soft, non tender, distended (Palpable ascites) - Neurologic normal coordination, normal sensation - Psychiatric oriented to time, oriented to person, oriented to place, speech is normal, memory intact - Labs 04/17/18 05:38 04/17/18 05:38 Diabetes panel 04/17/18 Range/Units 05:38 Sodium 131 L (136-145) mEq/L Potassium 3.9 (3.5-5.1) mEq/L Chloride 102 (98-107) mEq/L Carbon Dioxide 22 L (23-29) mEq/L BUN 7 L (8-23) mg/dL Creatinine 0.51 L (0.60-1.20) mg/dL Glucose 73 (70-105) mg/dL Calcium 8.6 (8.6-10.3) mg/dL Calcium panel 04/17/18 Range/Units 05:38 Calcium 8.6 (8.6-10.3) mg/dL Pituitary panel 04/17/18 Range/Units 05:38 Sodium 131 L (136-145) mEq/L Potassium 3.9 (3.5-5.1) mEq/L Chloride 102 (98-107) mEq/L Carbon Dioxide 22 L (23-29) mEq/L BUN 7 L (8-23) mg/dL Creatinine 0.51 L (0.60-1.20) mg/dL Glucose 73 (70-105) mg/dL Calcium 8.6 (8.6-10.3) mg/dL Adrenal panel 04/17/18 Range/Units 05:38 Sodium 131 L (136-145) mEq/L Potassium 3.9 (3.5-5.1) mEq/L Chloride 102 (98-107) mEq/L Carbon Dioxide 22 L (23-29) mEq/L BUN 7 L (8-23) mg/dL Creatinine 0.51 L (0.60-1.20) mg/dL Glucose 73 (70-105) mg/dL Calcium 8.6 (8.6-10.3) mg/dL - Imaging CT scan - abdomen: image reviewed (I personally reviewed the CAT scan the abdomen. Findings are consistent with the right lower quadrant mass with multiple mesenteric and pelvic masses as well as ascites and what appear to be liver metastasis.)
[2018-04-16] MEDS: Pantoprazole 40 MG VIAL IVP SCH ×2 (11:43→18:26)
[2018-04-16 15:19] LABS: Alanine Aminotransferase 8 Units/L (7-52); Albumin 3.5 g/dL (3.5-5.7); Albumin/Globulin Ratio 1.6 (1.1-2.2); Alkaline Phosphatase 73 Units/L (34-104); Aspartate Amino Transferase 14 Units/L (13-39); BUN/Creatinine Ratio 16 (6-26); Bilirubin,Total 0.5 mg/dL (0.3-1.0); Blood Urea Nitrogen 8 mg/dL (8-23); Calcium 8.6 mg/dL (8.6-10.3); Carbon Dioxide 23 mEq/L (23-29); Chloride 100 mEq/L (98-107); Globulin 2.2 g/dL (2.4-3.5); Glucose 86 mg/dL (70-105); Osmolality,Calculated 266 (280-300); Potassium 4.1 mEq/L (3.5-5.1); Sodium 129 mEq/L (136-145); Total Protein 5.7 g/dL (6.4-8.9); eGFR For Non-African Americans > 60 (> 60)
[2018-04-17] MEDS: *HR* Heparin 5,000 UNIT/ML VIAL SQ SCH ×3 (06:06→22:01)
[2018-04-17] MEDS: Pantoprazole 40 MG VIAL IVP SCH ×2 (06:06→17:55)
[2018-04-17 06:34] LABS: Basophils % 0.2 %; Immature Granulocytes % 0.6 % (0-4); Mean Platelet Volume 9.7 fL (9.4-12.4)
[2018-04-17 06:36] LABS: Eosinophils # 0.1 K/mcL (0.0-0.6); Hematocrit 31.8 % (35.3-44.9); Hemoglobin 9.2 g/dL (11.5-15.4); Lymphocytes # 1.1 K/mcL (0.6-4.6); Lymphocytes % 21.4 %; Mean Corpuscular HGB Conc 28.9 g/dL (31.6-35.5); Mean Corpuscular Hemoglobin 17.9 pg (28.0-33.3); Mean Corpuscular Volume 61.7 fL (83.0-100.0); Monocytes # 0.9 K/mcL (0.0-1.3); Monocytes % 17.6 %; Neutrophils # 3.1 K/mcL (1.6-8.9); Platelet Count 388 K/mcL (140-400); Red Blood Count 5.15 M/mcL (3.82-4.97); Red Cell Distribution Width 21.7 % (11.5-14.5); Segmented Neutrophils % 59.2 %
[2018-04-17 06:55] LABS: BUN/Creatinine Ratio 14 (6-26); Blood Urea Nitrogen 7 mg/dL (8-23); Calcium 8.6 mg/dL (8.6-10.3); Carbon Dioxide 22 mEq/L (23-29); Chloride 102 mEq/L (98-107); Glucose 73 mg/dL (70-105); Osmolality,Calculated 269 (280-300); Potassium 3.9 mEq/L (3.5-5.1); Sodium 131 mEq/L (136-145); eGFR For Non-African Americans > 60 (> 60)
[2018-04-17 06:57] LABS: Anisocytosis 2+ (Not Present); Hypochromasia Present (Not Present); Microcytosis Present (Not Present); Platelet Estimate Normal (Normal)
[2018-04-17] MEDS: 0.9 % Sodium Chloride 1,000 ML IVC SCH ×4 (07:54→20:18)
--- NOTE | 2018-04-17 08:56 | Internal Med Progress Note ---
Hospitalist Progress Note - Encounter Date of Encounter: 04/17/18 Time of Encounter: 08:45 - Exam Vitals: Temp Pulse Resp BP Pulse Ox 98.1 F 106 15 150/82 96 04/17/18 05:18 04/17/18 05:18 04/17/18 05:18 04/17/18 05:18 04/17/18 05:18 Exam: Gen: Vitals noted. No acute distress. HEENT: Normocephalic, atraumatic. Foul odor from breath Neck: Supple. No adenopathy. Cardiac: Regular rate and rhythm, rapid, no murmur, +S1/S2 Pulmonary: CTA bilaterally, no wheezes, rales or rhonchi, equal chest expansion Abdomen: soft, very mild tenderness to palpation, no guarding. There is a firmness in the right lower quadrant which is more significant than the rest of her abdomen. This is tender to palpation. Extremities: no BLE edema, nontender calf, no cyanosis or clubbing Neuro: moves all extremities, no focal deficits. A&Ox3 Psych: Appropriate mood and behavior - Assessment and Plan (1) Partial small bowel obstruction Current Visit: Yes Status: Acute Assessment and Plan: Likely secondary to colon mass. Surgery following and plan to monitor and introduce diet gradually and see if she tolerates Currently NPO (2) Colonic mass Current Visit: Yes Status: Acute Assessment and Plan: Colonic mass with apparent metastasis including peritoneal carcinomatosis, liver metastases, retroperitoneal lymph node association Demonstrated on CT of the abdomen and pelvis which was ordered by PCP Patient has had symptoms of obstruction associated with this, however it appears to be partial in nature Was seen by surgery who determined she bri has colon cancer with mets. Will need biopsy. Oncology consulted and recommend ileostomy and palliative chemotherapy possibly Will start diet per dietitian (3) Hyponatremia Current Visit: Yes Status: Acute Assessment and Plan: Hyponatremia, appears to be hypovolemic to euvolemic in nature Improved with IV fluids (4) Tachycardia Current Visit: Yes Status: Acute Assessment and Plan: Tachycardia, likely secondary to volume loss We will replete the patient's fluids conservatively given hyponatremia and monitor heart rate (5) Hypertension Current Visit: Yes Status: Acute Assessment and Plan: Continue home meds. Monitor BP (6) Anemia Current Visit: Yes Status: Acute Assessment and Plan: Anemia, likely secondary to GI cancer We will repeat CBC in the morning Transfuse for hemoglobin less than 7 (7) DVT prophylaxis Current Visit: Yes Status: Acute Assessment and Plan: Subcutaneous heparin - Time Spent with Patient Total time spent is greater than 50% in coordination of care (as documented) at patient's floor/unit and/or counseling patient: Internal Medicine: Result - Labs CBC & Chem 7: 04/17/18 05:38 04/17/18 05:38 Labs: Short CBC 04/17/18 Range/Units 05:38 WBC 5.2 (4.3-11.1) K/mcL Hgb 9.2 L (11.5-15.4) g/dL Hct 31.8 L (35.3-44.9) % Plt Count 388 (140-400) K/mcL Neutrophils # 3.1 (1.6-8.9) K/mcL BMP 04/16/18 04/17/18 14:50 05:38 Sodium 129 L 131 L Potassium 4.1 3.9 Chloride 100 102 Carbon Dioxide 23 22 L BUN 8 7 L Creatinine 0.49 L 0.51 L Glucose 86 73 Calcium 8.6 8.6 Liver Function 04/16/18 Range/Units 14:50 Total Bilirubin 0.5 (0.3-1.0) mg/dL AST 14 (13-39) Units/L ALT 8 (7-52) Units/L Alkaline Phosphatase 73 (34-104) Units/L Albumin 3.5 (3.5-5.7) g/dL - ABG Interpretation ABG results: PT/INR, D-dimer PT 13.5 Seconds (9.4-12.1) H 04/15/18 19:51 Consult Discharge Plan - Plan Referrals: Lizz Ariza CNP [Primary Care Provider] - Sandeep Singh Jr, MD [Family Provider] - (5) Hypertension Qualifiers: Hypertension type: essential hypertension Qualified Code(s): I10 - Essential (primary) hypertension (6) Anemia Qualifiers: Anemia type: iron deficiency Iron deficiency anemia type: chronic blood loss Qualified Code(s): D50.0 - Iron deficiency anemia secondary to blood loss ( chronic)
--- NOTE | 2018-04-17 09:11 | Oncology Inp Consult Note ---
Date of Encounter: 04/17/18 Time of Encounter: 08:00 Assessment and Plan (1) Colonic mass Status: Acute Assessment and plan: She has an obstructing right colon mass. 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 She has probable liver metastasis although minimal disease burden. Her CT findings and laboratory abnormalities were reviewed with the patient. I agree with Dr. Loving's assessment that this represents metastatic colon carcinoma given its presentation. Given patient's presentation symptoms, I do think either ileostomy or bypass is warranted. Patient wants to avoid ileostomy if at all possible but does desire to pursue surgery if it will help her symptoms. It is unlikely systemic therapy will induce a good enough response to avoid further abdominal symptomatology, it may actually worsen the symptoms initially. I did discuss that this is an incurable process. Radiation would not be utilized. Surgery would be only utilized for palliation of symptoms. Systemic chemotherapy would be the next logical step pending resolution of her obstruction. She is uncertain if she wants to pursue this at this juncture. She would like to think about this but only after her acute issues have resolved. We will discuss her case with surgery on Wednesday. Again, my bias would be to I passed this obstruction if possible. Ileostomy may be necessary. The patient does want to pursue surgery if it will alleviate her abdominal symptoms. (2) Anemia Status: Acute Assessment and plan: She has iron deficiency anemia. I have ordered venofer 400 mg IV 1. Qualifiers: Anemia type: iron deficiency Iron deficiency anemia type: chronic blood loss Qualified Code(s): D50.0 - Iron deficiency anemia secondary to blood loss (chronic) - Data of Consult Requesting Physician: Candi Gamez MD Primary Care Provider: Lizz Ariza CNP Family Provider: Sandeep Singh Jr, MD - Consult Narrative Reason for consult: Probable new metastatic colon cancer History of present illness: Ms. Mayo is a 77 year old female whose had worsening abdominal pain and constipation past 3 month period time. Patient's pain was located in the right lower quadrant and radiates to the upper abdomen. The pain has worsened over the past 3 months and is associated with a 30 pound loss of weight. She also has associated nausea, vomiting as well as decreased stool caliber. Her primary care physician ordered a CT scan which revealed a large infiltrating mass in the proximal ascending colon resulting in colon and small bowel obstruction. A few small liver metastases as well as peritoneal carcinomatosis identified with multiple peritoneal tumor nodules and a small amount of ascites. Retroperitoneal and mesenteric lymphadenopathy present. Surgery has been consulted. She is nothing by mouth and on IV fluids currently. She has iron deficiency anemia with associated MCV of 61.7. CEA is normal at 1.1. Willian, she is feeling better. Her abdominal pain has improved. She has not moved her bowels are past flat is since Wednesday. Her bili remains distended. No other aches or pains elsewhere outside of her abdomen. No further nausea or vomiting. She denies any bleeding symptoms. No melena or hematochezia. Stools have been brown. Past Med Surg Social Fam HX - Past Medical History Medical history: GERD - Social History Smoking Status: Never smoker Alcohol use: none Drug use: none - Family History Mother Adopted: No Living Status: Age at : 96 Cause of : stroke Hx Family Cardiac Disorders: Yes (mother irregular heart beat.) Hx Family Respiratory Disorders: No Hx Family Cancer: No Hx Family GI Disorders: No Hx Family Genitourinary Disorders: No Hx Family Endocrine Disorder: Yes (dad DM) Hx Family Musculoskeletal Disorders: No Hx Family Neuromuscular Disorders: No Hx Family Neurologic Disorders: No Hx Family HEENT Disorders: Yes (Mother hearing r/t spinal mengitis) Hx Family Autoimmune Disorders: No Hx Family Reproductive Disorders: No Hx Family Psychosocial Disorders: No Hx Family Medical Disorders: No Medications and Allergies Loratadine [Claritin] 10 mg PO DAILY 04/15/18 [History] Ranitidine HCl [Acid [employer]] 75 mg PO DAILY PRN 04/15/18 [History] 3 Allergy/AdvReac Type Severity Reaction Status Date / Time No Known Allergies Allergy Verified 04/15/18 19:53 All systems: reviewed and no additional remarkable complaints except as stated Constitutional: Present: anorexia, fatigue, weight loss Eyes: Present: as per HPI Ears: Present: as per HPI Nose, mouth and throat: Present: as per HPI Cardiovascular: Present: as per HPI Respiratory: Present: as per HPI Gastrointestinal: Present: abdominal pain, belching, change in stool character, nausea, vomiting Musculoskeletal: Present: as per HPI Neurological: Present: as per HPI Psychiatric: Present: as per HPI Endocrine: Present: as per HPI Oncology - Exam - Constitutional Vitals: Temp Pulse Resp BP Pulse Ox 98.1 F 106 15 150/82 96 04/17/18 05:18 04/17/18 05:18 04/17/18 05:18 04/17/18 05:18 04/17/18 05:18 General appearance: cooperative, no acute distress - Head Head exam: Present: atraumatic, normal inspection, normocephalic - Eye Eye exam: Present: normal appearance, conjuntiva pink, sclera anicteric - ENT ENT exam: Present: mucous membranes moist, normal exam, normal oropharynx - Neck Neck exam: Present: full ROM - Respiratory Respiratory exam: Present: CTAB - Cardiovascular Cardiovascular exam: Present: RRR - GI/Abdominal GI/Abdominal exam: Present: distended, firm, hypoactive bowel sounds, tenderness - Extremities Exam Extremities exam: Present: normal inspection - Back Exam Back exam: Present: normal inspection - Neurological Exam Neurological exam: Present: alert, CN II-XII intact, oriented X3, no focal deficits - Skin Skin exam: Present: normal color, pallor Oncology - Results Labs: 3 04/17/18 04/17/18 04/16/18 05:38 05:38 14:50 WBC 5.2 RBC 5.15 H Hgb 9.2 L Hct 31.8 L MCV 61.7 L MCH 17.9 L MCHC 28.9 L RDW 21.7 H Plt Count 388 MPV 9.7 Immature Gran % 0.6 Seg Neutrophils % 59.2 Lymphocytes % 21.4 Monocytes % 17.6 Eosinophils % 1.0 Basophils % 0.2 Neutrophils # 3.1 Lymphocytes # 1.1 Monocytes # 0.9 Eosinophils # 0.1 Basophils # 0.0 Platelet Estimate Normal Hypochromasia Present A Poikilocytosis Anisocytosis 2+ A Microcytosis Present A Sodium 131 L 129 L Potassium 3.9 4.1 Chloride 102 100 Carbon Dioxide 22 L 23 BUN 7 L 8 Creatinine 0.51 L 0.49 L Est GFR ( Amer) > 60 > 60 Est GFR (Non-Af Amer) > 60 > 60 BUN/Creatinine Ratio 14 16 Glucose 73 86 POC Glucose Calculated Osmolality 269 L 266 L Calcium 8.6 8.6 Phosphorus Magnesium Total Bilirubin 0.5 AST 14 ALT 8 Alkaline Phosphatase 73 Serum Total Protein 5.7 L Albumin 3.5 Globulin 2.2 L Albumin/Globulin Ratio 1.6 Urine Color Urine Clarity Urine pH Ur Specific [place] Urine Protein Urine Glucose (UA) Urine Ketones Urine Blood Urine Nitrite Urine Bilirubin Urine Urobilinogen Ur Leukocyte Esterase Urine Microscopic RBC Urine Microscopic WBC Ur Squamous Epith Cells Urine Bacteria Hyaline Casts Ur Culture Indicated? Urine Creatinine Urine Sodium Blood Type Antibody Screen 3 04/16/18 04/16/18 04/16/18 10:54 07:51 05:55 WBC RBC Hgb Hct MCV MCH MCHC RDW Plt Count MPV Immature Gran % Seg Neutrophils % Lymphocytes % Monocytes % Eosinophils % Basophils % Neutrophils # Lymphocytes # Monocytes # Eosinophils # Basophils # Platelet Estimate Hypochromasia Poikilocytosis Anisocytosis Microcytosis Sodium Potassium Chloride Carbon Dioxide BUN Creatinine Est GFR ( Amer) Est GFR (Non-Af Amer) BUN/Creatinine Ratio Glucose POC Glucose 86 82 Calculated Osmolality Calcium Phosphorus Magnesium Total Bilirubin AST ALT Alkaline Phosphatase Serum Total Protein Albumin Globulin Albumin/Globulin Ratio Urine Color Urine Clarity Urine pH Ur Specific [place] Urine Protein Urine Glucose (UA) Urine Ketones Urine Blood Urine Nitrite Urine Bilirubin Urine Urobilinogen Ur Leukocyte Esterase Urine Microscopic RBC Urine Microscopic WBC Ur Squamous Epith Cells Urine Bacteria Hyaline Casts Ur Culture Indicated? Urine Creatinine Urine Sodium Blood Type O NEGATIVE Antibody Screen NEGATIVE 3 04/16/18 04/16/18 04/16/18 05:17 05:17 03:53 WBC RBC Hgb Hct MCV MCH MCHC RDW Plt Count MPV Immature Gran % Seg Neutrophils % Lymphocytes % Monocytes % Eosinophils % Basophils % Neutrophils # Lymphocytes # Monocytes # Eosinophils # Basophils # Platelet Estimate Hypochromasia Poikilocytosis Anisocytosis Microcytosis Sodium 131 L Potassium 3.9 Chloride 98 Carbon Dioxide 24 BUN 9 Creatinine 0.53 L Est GFR ( Amer) > 60 Est GFR (Non-Af Amer) > 60 BUN/Creatinine Ratio 17 Glucose 87 POC Glucose Calculated Osmolality 270 L Calcium 8.8 Phosphorus 3.9 Magnesium 2.1 Total Bilirubin AST ALT Alkaline Phosphatase Serum Total Protein Albumin Globulin Albumin/Globulin Ratio Urine Color Yellow Urine Clarity Clear Urine pH 6.5 Ur Specific [place] 1.027 H Urine Protein Negative Urine Glucose (UA) Normal Urine Ketones 40 H Urine Blood Negative Urine Nitrite Negative Urine Bilirubin Negative Urine Urobilinogen 2.0 H Ur Leukocyte Esterase Moderate H Urine Microscopic RBC 0-3 Urine Microscopic WBC 3-5 H Ur Squamous Epith Cells Many H Urine Bacteria Few Hyaline Casts None Seen Ur Culture Indicated? NO. A Urine Creatinine 68 Urine Sodium 127.8 Blood Type Antibody Screen 3 04/16/18 03:53 WBC 5.8 RBC 5.15 H Hgb 9.1 L Hct 31.4 L MCV 61.0 L MCH 17.7 L MCHC 29.0 L RDW 21.3 H Plt Count 352 MPV 9.0 L Immature Gran % 0.3 Seg Neutrophils % 65.2 Lymphocytes % 18.0 Monocytes % 15.3 Eosinophils % 0.9 Basophils % 0.3 Neutrophils # 3.8 Lymphocytes # 1.0 Monocytes # 0.9 Eosinophils # 0.1 Basophils # 0.0 Platelet Estimate Normal Hypochromasia Present A Poikilocytosis 1+ A Anisocytosis 1+ A Microcytosis Sodium Potassium Chloride Carbon Dioxide BUN Creatinine Est GFR ( Amer) Est GFR (Non-Af Amer) BUN/Creatinine Ratio Glucose POC Glucose Calculated Osmolality Calcium Phosphorus Magnesium Total Bilirubin AST ALT Alkaline Phosphatase Serum Total Protein Albumin Globulin Albumin/Globulin Ratio Urine Color Urine Clarity Urine pH Ur Specific [place] Urine Protein Urine Glucose (UA) Urine Ketones Urine Blood Urine Nitrite Urine Bilirubin Urine Urobilinogen Ur Leukocyte Esterase Urine Microscopic RBC Urine Microscopic WBC Ur Squamous Epith Cells Urine Bacteria Hyaline Casts Ur Culture Indicated? Urine Creatinine Urine Sodium Blood Type Antibody Screen Consult Discharge Plan - Plan Referrals: Lizz Ariza CNP [Primary Care Provider] - Sandeep Singh Jr, MD [Family Provider] - Inpatient Charges Provider: Dr. Delilah Pedroza Consult Charges: [id number]
--- NOTE | 2018-04-17 10:07 | General Surgery Progress Note ---
<Salty Rausch - Last Filed: 04/17/18 10:05> Date of Encounter: 04/17/18 Time of Encounter: 09:15 - Assessment and Plan (1) Colon cancer metastasized to multiple sites Current Visit: Yes Status: Acute Patient diagnosed with colonic mass w/ apparent metastasis including peritoneal carcinomatosis, liver metastasis, retroperitoneal lymph node association demonstrated by CT adbodmen/pelvis. Plan: -Consulted dietitian yesterday to start on elemental diet -continue IV fluids -oncology to be consulted on wednesday; patient would like to setup family meeting with oncology -further surgical recommendation pending on oncology consultation. Possible bowel bypass pending, no surgical intervention planned at this time -patient informed of diagnosis by Dr. Loving yesterday. Took diagnosis as well as can be expected. Has daughter who would like to talk about diagnosis sometime this week. Was assured that surgical team was open to talking to daughter (2) Small bowel obstruction Current Visit: Yes Status: Acute NPO until elemental diet started -consider NG tube if becomes symptomatic -zofran prn for nausea (3) Anemia due to GI blood loss Current Visit: Yes Status: Acute -hemoglobin level at 9.2, suspect due to colon cancer -IV protonix -Trend daily CBC -Type and screen completed, transfuse for less then 7, If symptomatic Liquids with supplement, ensure clear Consulted dietitian Subjective Patient reports: no new complaints, voiding w/o difficulty, no flatus, no bowel movement, afebrile Objective Vital Signs - Last 8 Hours Temp Pulse Resp BP Pulse Ox 04/17/18 05:18 98.1 F 106 15 150/82 96 Intake and Output 04/16/18 04/17/18 04/17/18 23:59 07:59 15:59 Intake Total 360 / 360 1340 / 1340 Output Total 150 / 150 900 / 900 200 / 200 Balance 210 / 210 440 / 440 -200 / -200 Intake: IV Fluids 1000 / 1000 0.9 % Sodium Chloride 1,000 ML 1000 / 1000 @ 100 mls/hr IVC .Q10H [facility] Rx#: [id number] Oral 360 / 360 340 / 340 Output: Urine 150 / 150 900 / 900 200 / 200 Other: Meal Dinner NPO BREAKFAST Percent of Meal Consumed 60% # Bowel Movements 0 Weight 53.9 kg Patient Weight 04/17/18 23:59 Weight 53.9 kg - General physical appearance no distress - Neck Neck exam: trachea midline - Respiratory clear to auscultation - Cardiovascular Cardiovascular exam: Present: RRR - Abdomen Abdomen: Present: bowel sounds present (hyperactive "gallardo" bowel sounds), soft, non tender - Integumentary no rash - Musculoskeletal normal gait, normal posture - Psychiatric oriented to time, oriented to person, oriented to place, speech is normal - Labs 04/17/18 05:38 04/17/18 05:38 Diabetes panel 04/16/18 04/17/18 Range/Units 14:50 05:38 Sodium 129 L 131 L (136-145) mEq/L Potassium 4.1 3.9 (3.5-5.1) mEq/L Chloride 100 102 (98-107) mEq/L Carbon Dioxide 23 22 L (23-29) mEq/L BUN 8 7 L (8-23) mg/dL Creatinine 0.49 L 0.51 L (0.60-1.20) mg/dL Glucose 86 73 (70-105) mg/dL Calcium 8.6 8.6 (8.6-10.3) mg/dL AST 14 (13-39) Units/L ALT 8 (7-52) Units/L Alkaline Phosphatase 73 (34-104) Units/L Albumin 3.5 (3.5-5.7) g/dL Calcium panel 04/16/18 04/17/18 Range/Units 14:50 05:38 Calcium 8.6 8.6 (8.6-10.3) mg/dL Albumin 3.5 (3.5-5.7) g/dL Pituitary panel 04/16/18 04/17/18 Range/Units 14:50 05:38 Sodium 129 L 131 L (136-145) mEq/L Potassium 4.1 3.9 (3.5-5.1) mEq/L Chloride 100 102 (98-107) mEq/L Carbon Dioxide 23 22 L (23-29) mEq/L BUN 8 7 L (8-23) mg/dL Creatinine 0.49 L 0.51 L (0.60-1.20) mg/dL Glucose 86 73 (70-105) mg/dL Calcium 8.6 8.6 (8.6-10.3) mg/dL Adrenal panel 04/16/18 04/17/18 Range/Units 14:50 05:38 Sodium 129 L 131 L (136-145) mEq/L Potassium 4.1 3.9 (3.5-5.1) mEq/L Chloride 100 102 (98-107) mEq/L Carbon Dioxide 23 22 L (23-29) mEq/L BUN 8 7 L (8-23) mg/dL Creatinine 0.49 L 0.51 L (0.60-1.20) mg/dL Glucose 86 73 (70-105) mg/dL Calcium 8.6 8.6 (8.6-10.3) mg/dL Total Bilirubin 0.5 (0.3-1.0) mg/dL AST 14 (13-39) Units/L ALT 8 (7-52) Units/L Alkaline Phosphatase 73 (34-104) Units/L Albumin 3.5 (3.5-5.7) g/dL Consult Discharge Plan - Plan Referrals: Lizz Ariza CNP [Primary Care Provider] - Sandeep Singh Jr, MD [Family Provider] - <Ammon Loving T - Last Filed: 04/17/18 17:52> Date of Encounter: 04/17/18 - Assessment and Plan (1) Colon cancer metastasized to multiple sites Current Visit: Yes Status: Acute Objective Vital Signs - Last 8 Hours Temp Pulse Resp BP Pulse Ox 04/17/18 14:40 98.3 F 108 16 164/82 95 04/17/18 10:08 98.5 F 110 16 154/91 97 Intake and Output 04/17/18 04/17/18 04/17/18 07:59 15:59 23:59 Intake Total 1340 / 1340 270 / 270 Output Total 900 / 900 900 / 900 Balance 440 / 440 -630 / -630 Intake: IV Fluids 1000 / 1000 270 / 270 0.9 % Sodium Chloride 1,000 ML 1000 / 1000 @ 100 mls/hr IVC .Q10H [facility] Rx#: [id number] Venofer 400 MG In 0.9 % Sodium 270 / 270 Chloride 250 ML @ 120 mls/hr IVPB ONCE ONE Rx#:[id number] Oral 340 / 340 Output: Urine 900 / 900 900 / 900 Other: Meal NPO LUNCH NPO DINNER # Voids 1 # Bowel Movements 0 Weight 53.9 kg Blood Glucose* 70 77 Patient Weight 04/17/18 23:59 Weight 53.9 kg - Labs 04/17/18 05:38 04/17/18 05:38 Diabetes panel 04/17/18 Range/Units 05:38 Sodium 131 L (136-145) mEq/L Potassium 3.9 (3.5-5.1) mEq/L Chloride 102 (98-107) mEq/L Carbon Dioxide 22 L (23-29) mEq/L BUN 7 L (8-23) mg/dL Creatinine 0.51 L (0.60-1.20) mg/dL Glucose 73 (70-105) mg/dL Calcium 8.6 (8.6-10.3) mg/dL Calcium panel 04/17/18 Range/Units 05:38 Calcium 8.6 (8.6-10.3) mg/dL Pituitary panel 04/17/18 Range/Units 05:38 Sodium 131 L (136-145) mEq/L Potassium 3.9 (3.5-5.1) mEq/L Chloride 102 (98-107) mEq/L Carbon Dioxide 22 L (23-29) mEq/L BUN 7 L (8-23) mg/dL Creatinine 0.51 L (0.60-1.20) mg/dL Glucose 73 (70-105) mg/dL Calcium 8.6 (8.6-10.3) mg/dL Adrenal panel 04/17/18 Range/Units 05:38 Sodium 131 L (136-145) mEq/L Potassium 3.9 (3.5-5.1) mEq/L Chloride 102 (98-107) mEq/L Carbon Dioxide 22 L (23-29) mEq/L BUN 7 L (8-23) mg/dL Creatinine 0.51 L (0.60-1.20) mg/dL Glucose 73 (70-105) mg/dL Calcium 8.6 (8.6-10.3) mg/dL - Attending Attestation The history, physical exam, and medical decision making was performed by the medical student either while I was physically present and actively involved or I personally re-performed the exam and medical decision making. I have verified the accuracy of the medical student's documentation with regards to the history, physical exam findings, and medical decision making. The patient is seen and evaluated with medical student and the resident on morning rounds. She continued to discuss findings of her CAT scan suspicious for intra-abdominal carcinoma dominant in the right lower quadrant but with mesenteric and pelvic masses as well as hepatic metastasis. We are awaiting oncology consultation and we will be glad to work with oncology and palliative care to maximize her outcome Ammon Loving MD FACS
[2018-04-17] MEDS ORDERED: Iron Sucrose Complex 400 MG in 0.9 % Sodium Chloride 250 ML IVPB ONE (10:10)
[2018-04-18] MEDS: 0.9 % Sodium Chloride 1,000 ML IVC SCH ×2 (05:53→22:00)
[2018-04-18] MEDS: *HR* Heparin 5,000 UNIT/ML VIAL SQ SCH ×3 (05:54→21:59)
[2018-04-18] MEDS: Pantoprazole 40 MG VIAL IVP SCH ×2 (05:54→17:56)
[2018-04-18 06:43] LABS: Basophils % 0.2 %; Eosinophils # 0.1 K/mcL (0.0-0.6); Eosinophils % 1.2 %; Hematocrit 30.2 % (35.3-44.9); Hemoglobin 8.8 g/dL (11.5-15.4); Immature Granulocytes % 2.6 % (0-4); Lymphocytes # 1.1 K/mcL (0.6-4.6); Lymphocytes % 18.5 %; Mean Corpuscular HGB Conc 29.1 g/dL (31.6-35.5); Mean Corpuscular Hemoglobin 18.2 pg (28.0-33.3); Mean Corpuscular Volume 62.4 fL (83.0-100.0); Mean Platelet Volume 8.8 fL (9.4-12.4); Monocytes # 0.9 K/mcL (0.0-1.3); Monocytes % 15.4 %; Platelet Count 307 K/mcL (140-400); Red Blood Count 4.84 M/mcL (3.82-4.97); Red Cell Distribution Width 22.4 % (11.5-14.5); Segmented Neutrophils % 62.1 %
[2018-04-18 06:46] LABS: Neutrophils # 3.7 K/mcL (1.6-8.9)
[2018-04-18 07:08] LABS: BUN/Creatinine Ratio 14 (6-26); Blood Urea Nitrogen 7 mg/dL (8-23); Calcium 8.4 mg/dL (8.6-10.3); Carbon Dioxide 16 mEq/L (23-29); Chloride 105 mEq/L (98-107); Glucose 65 mg/dL (70-105); Osmolality,Calculated 270 (280-300); Potassium 3.9 mEq/L (3.5-5.1); Sodium 132 mEq/L (136-145); eGFR For Non-African Americans > 60 (> 60)
--- NOTE | 2018-04-18 08:03 | General Surgery Progress Note ---
<Salty Rausch - Last Filed: 04/18/18 07:59> Date of Encounter: 04/18/18 Time of Encounter: 08:00 - Assessment and Plan (1) Colon cancer metastasized to multiple sites Current Visit: Yes Status: Acute Patient diagnosed with metastatic colon carcinoma. Oncology was consulted and agrees on diagnosis and recommends palliative ilesotomy to relieve abdominal symptoms. Plan: -clear liquid diet today -if unable to tolerate clear liquid diet- possible palliative bypass surgery -continue IV fluids -patient would like to setup family meeting (2) Small bowel obstruction Current Visit: Yes Status: Acute -start clear liquids with clear ensure -consider NG tube if becomes symptomatic -zofran prn for nausea (3) Anemia due to GI blood loss Current Visit: Yes Status: Acute -hemoglobin level at 8.8, suspect due to iron deficiency anemia with colon cancer -continue IV protonix -Trend daily CBC -Type and screen completed, transfuse for less then 7, If symptomatic -heme/onc consulted, appreciated order of venofer 400 mg IV for iron deficiency anemia Subjective Patient reports: no new complaints, voiding w/o difficulty, flatus, no bowel movement, afebrile Objective Vital Signs - Last 8 Hours Temp Pulse Resp BP Pulse Ox 04/18/18 07:43 97.9 F 103 16 145/80 04/18/18 03:21 98.2 F 107 16 129/74 94 Intake and Output 04/17/18 04/17/18 04/18/18 15:59 23:59 07:59 Intake Total 270 / 270 1000 / 1000 1000 / 1000 Output Total 900 / 900 200 / 200 800 / 800 Balance -630 / -630 800 / 800 200 / 200 Intake: IV Fluids 270 / 270 1000 / 1000 1000 / 1000 0.9 % Sodium Chloride 1,000 ML 1000 / 1000 1000 / 1000 @ 100 mls/hr IVC .Q10H [facility] Rx#: [id number] Venofer 400 MG In 0.9 % Sodium 270 / 270 Chloride 250 ML @ 120 mls/hr IVPB ONCE ONE Rx#:[id number] Oral 0 / 0 0 / 0 Output: Urine 900 / 900 200 / 200 800 / 800 Other: Meal NPO LUNCH NPO DINNER # Voids 1 # Bowel Movements 0 0 Weight 54.3 kg Blood Glucose* 70 77 71 Patient Weight 04/18/18 23:59 Weight 54.3 kg - Neck Neck exam: trachea midline - Respiratory clear to auscultation - Cardiovascular Cardiovascular exam: Present: RRR - Abdomen Abdomen: Present: bowel sounds present (hyperactive "rushing" bowl sounds ), soft, non tender - Integumentary no rash - Musculoskeletal normal gait, normal posture - Psychiatric oriented to time, oriented to person, oriented to place, speech is normal - Labs 04/18/18 06:29 04/18/18 06:29 Diabetes panel 04/18/18 Range/Units 06:29 Sodium 132 L (136-145) mEq/L Potassium 3.9 (3.5-5.1) mEq/L Chloride 105 (98-107) mEq/L Carbon Dioxide 16 L (23-29) mEq/L BUN 7 L (8-23) mg/dL Creatinine 0.50 L (0.60-1.20) mg/dL Glucose 65 L (70-105) mg/dL Calcium 8.4 L (8.6-10.3) mg/dL Calcium panel 04/18/18 Range/Units 06:29 Calcium 8.4 L (8.6-10.3) mg/dL Pituitary panel 04/18/18 Range/Units 06:29 Sodium 132 L (136-145) mEq/L Potassium 3.9 (3.5-5.1) mEq/L Chloride 105 (98-107) mEq/L Carbon Dioxide 16 L (23-29) mEq/L BUN 7 L (8-23) mg/dL Creatinine 0.50 L (0.60-1.20) mg/dL Glucose 65 L (70-105) mg/dL Calcium 8.4 L (8.6-10.3) mg/dL Adrenal panel 04/18/18 Range/Units 06:29 Sodium 132 L (136-145) mEq/L Potassium 3.9 (3.5-5.1) mEq/L Chloride 105 (98-107) mEq/L Carbon Dioxide 16 L (23-29) mEq/L BUN 7 L (8-23) mg/dL Creatinine 0.50 L (0.60-1.20) mg/dL Glucose 65 L (70-105) mg/dL Calcium 8.4 L (8.6-10.3) mg/dL Consult Discharge Plan - Plan Referrals: Lizz Ariza, AMANDA [Primary Care Provider] - Sandeep Singh Jr, MD [Family Provider] - <Ammon Loving - Last Filed: 04/18/18 14:28> Date of Encounter: 04/18/18 - Assessment and Plan (1) Colon cancer metastasized to multiple sites Current Visit: Yes Status: Acute Objective Vital Signs - Last 8 Hours Temp Pulse Resp BP Pulse Ox 04/18/18 11:06 97.9 F 105 15 118/77 96 04/18/18 07:43 97.9 F 103 16 145/80 Intake and Output 04/17/18 04/18/18 04/18/18 23:59 07:59 15:59 Intake Total 1000 / 1000 1000 / 1000 500 / 500 Output Total 200 / 200 800 / 800 600 / 600 Balance 800 / 800 200 / 200 -100 / -100 Intake: IV Fluids 1000 / 1000 1000 / 1000 500 / 500 0.9 % Sodium Chloride 1,000 ML 1000 / 1000 1000 / 1000 500 / 500 @ 100 mls/hr IVC .Q10H [facility] Rx#: [id number] Oral 0 / 0 0 / 0 0 / 0 Output: Urine 200 / 200 800 / 800 600 / 600 Other: Meal NPO DINNER npo Percent of Meal Consumed 0% # Bowel Movements 0 0 Weight 54.3 kg Blood Glucose* 77 71 77 Patient Weight 04/18/18 23:59 Weight 54.3 kg - Labs 04/18/18 06:29 04/18/18 06:29 Diabetes panel 04/18/18 Range/Units 06:29 Sodium 132 L (136-145) mEq/L Potassium 3.9 (3.5-5.1) mEq/L Chloride 105 (98-107) mEq/L Carbon Dioxide 16 L (23-29) mEq/L BUN 7 L (8-23) mg/dL Creatinine 0.50 L (0.60-1.20) mg/dL Glucose 65 L (70-105) mg/dL Calcium 8.4 L (8.6-10.3) mg/dL Calcium panel 04/18/18 Range/Units 06:29 Calcium 8.4 L (8.6-10.3) mg/dL Pituitary panel 04/18/18 Range/Units 06:29 Sodium 132 L (136-145) mEq/L Potassium 3.9 (3.5-5.1) mEq/L Chloride 105 (98-107) mEq/L Carbon Dioxide 16 L (23-29) mEq/L BUN 7 L (8-23) mg/dL Creatinine 0.50 L (0.60-1.20) mg/dL Glucose 65 L (70-105) mg/dL Calcium 8.4 L (8.6-10.3) mg/dL Adrenal panel 04/18/18 Range/Units 06:29 Sodium 132 L (136-145) mEq/L Potassium 3.9 (3.5-5.1) mEq/L Chloride 105 (98-107) mEq/L Carbon Dioxide 16 L (23-29) mEq/L BUN 7 L (8-23) mg/dL Creatinine 0.50 L (0.60-1.20) mg/dL Glucose 65 L (70-105) mg/dL Calcium 8.4 L (8.6-10.3) mg/dL - Attending Attestation I examined this patient and my medical decision-making was reviewed with the Resident Physician. I agree with the documented findings, disposition and treatment plan as described except to the extent set forth below. The patient is seen and evaluated on morning rounds with the resident, medical student, and clinical nurse practitioner. She has widely metastatic carcinoma involving the abdomen including malignant ascites and high-grade partial small bowel obstruction. She is tolerating clear liquid diet with clear liquid supplements. If she develops a complete bowel obstruction palliative bypass surgery can be performed. I would not perform palliative bypass and less the patient was actively vomiting. Ammon Loving MD FACS
[2018-04-18 10:25] LABS: Microcytosis Present (Not Present)
[2018-04-18 10:26] LABS: Platelet Estimate Normal (Normal)
--- NOTE | 2018-04-18 10:37 | Internal Med Progress Note ---
Hospitalist Progress Note - Encounter Date of Encounter: 04/18/18 Time of Encounter: 10:30 - Exam Vitals: Temp Pulse Resp BP Pulse Ox 97.9 F 103 16 145/80 94 04/18/18 07:43 04/18/18 07:43 04/18/18 07:43 04/18/18 07:43 04/18/18 03:21 Exam: Gen: Vitals noted. No acute distress. HEENT: Normocephalic, atraumatic. Foul odor from breath Neck: Supple. No adenopathy. Cardiac: Regular rate and rhythm, rapid, no murmur, +S1/S2 Pulmonary: CTA bilaterally, no wheezes, rales or rhonchi, equal chest expansion Abdomen: soft, very mild tenderness to palpation, no guarding. There is a firmness in the right lower quadrant which is more significant than the rest of her abdomen. This is tender to palpation. Extremities: no BLE edema, nontender calf, no cyanosis or clubbing Neuro: moves all extremities, no focal deficits. A&Ox3 Psych: Appropriate mood and behavior - Assessment and Plan (1) Partial small bowel obstruction Current Visit: Yes Status: Acute Assessment and Plan: Likely secondary to colon mass. Surgery following and plan to monitor and introduce diet gradually and see if she tolerates 04/18- Surgery plan to start on clear liquids today (2) Colonic mass Current Visit: Yes Status: Acute Assessment and Plan: Colonic mass with apparent metastasis including peritoneal carcinomatosis, liver metastases, retroperitoneal lymph node association Demonstrated on CT of the abdomen and pelvis which was ordered by PCP Patient has had symptoms of obstruction associated with this, however it appears to be partial in nature Was seen by surgery who determined she likely has colon cancer with mets. Oncology consulted and recommend ileostomy and palliative chemotherapy possibly Will start clear liquid diet per surgery recs (3) Hyponatremia Current Visit: Yes Status: Acute Assessment and Plan: Hyponatremia, appears to be hypovolemic to euvolemic in nature Improved with IV fluids (4) Hypertension Current Visit: Yes Status: Acute Assessment and Plan: Continue home meds. Monitor BP (5) Anemia Current Visit: Yes Status: Acute Assessment and Plan: Anemia, microcytic anemia from GI malignancy. Monitor CBC Transfuse for hemoglobin less than 7 (6) DVT prophylaxis Current Visit: Yes Status: Acute Assessment and Plan: Subcutaneous heparin - Time Spent with Patient Total time spent is greater than 50% in coordination of care (as documented) at patient's floor/unit and/or counseling patient: Internal Medicine: Result - Labs CBC & Chem 7: 04/18/18 06:29 04/18/18 06:29 Labs: Short CBC 04/18/18 Range/Units 06:29 WBC 6.0 (4.3-11.1) K/mcL Hgb 8.8 L (11.5-15.4) g/dL Hct 30.2 L (35.3-44.9) % Plt Count 307 (140-400) K/mcL Neutrophils # 3.7 (1.6-8.9) K/mcL BMP 04/18/18 06:29 Sodium 132 L Potassium 3.9 Chloride 105 Carbon Dioxide 16 L BUN 7 L Creatinine 0.50 L Glucose 65 L Calcium 8.4 L - ABG Interpretation ABG results: PT/INR, D-dimer PT 13.5 Seconds (9.4-12.1) H 04/15/18 19:51 Consult Discharge Plan - Plan Referrals: Lizz Ariza CNP [Primary Care Provider] - Sandeep Singh Jr, MD [Family Provider] - (4) Hypertension Qualifiers: Hypertension type: essential hypertension Qualified Code(s): I10 - Essential (primary) hypertension (5) Anemia Qualifiers: Anemia type: iron deficiency Iron deficiency anemia type: chronic blood loss Qualified Code(s): D50.0 - Iron deficiency anemia secondary to blood loss ( chronic)
--- NOTE | 2018-04-18 12:05 | Oncology Inp Progress Note ---
<Miguel Ángel Black - Last Filed: 04/18/18 18:17> Date of Encounter: 04/18/18 Time of Encounter: 10:15 (1) Colonic mass Current Visit: Yes Status: Acute Assessment and plan: She has an obstructing right colon mass. 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 She has probable liver metastasis although minimal disease burden. Her CT findings and laboratory abnormalities were reviewed with the patient. I agree with Dr. Loving's assessment that this represents metastatic colon carcinoma given its presentation. Given patient's presentation symptoms, I do think either ileostomy or bypass is warranted, preferably bypass as patient wants to avoid ileostomy if at all possible but does desire to pursue surgery if it will help her symptoms. Dr. Pedroza previously discuss that this is an incurable process and I reviewed this with patient again today. Radiation would not be utilized. Surgery would be only utilized as palliative measure. Systemic chemotherapy would be the next logical step pending resolution of her obstruction. She wishes to pursue the liquid diet currently. Discussed case with surgery, if patient able to pass stool with liquid diet then will hold off surgical intervention; if unable to pass BM due to obstruction then planning for palliative bypass. Oncology: Subj Interval history: Patient is 77-year-old female that was seen and evaluated while laying in bed. Patient's daughter is sitting at bedside. Patient denies any acute discomfort currently. Patient notes that she wants to avoid surgery if at all possible, she is open to the trial recommended by surgery of liquid diet. She is open to other invasive measures for palliative care if needed. - Constitutional Vitals: Vital Signs Temp Pulse Resp BP Pulse Ox 04/18/18 11:06 97.9 F 105 15 118/77 96 04/18/18 07:43 97.9 F 103 16 145/80 04/18/18 03:21 98.2 F 107 16 129/74 94 04/17/18 19:15 99.5 F 130 14 136/66 93 04/17/18 14:40 98.3 F 108 16 164/82 95 Intake and Output 04/17/18 04/18/18 04/18/18 23:59 07:59 15:59 Intake Total 1000 / 1000 1000 / 1000 500 / 500 Output Total 200 / 200 800 / 800 600 / 600 Balance 800 / 800 200 / 200 -100 / -100 Intake: IV Fluids 1000 / 1000 1000 / 1000 500 / 500 0.9 % Sodium Chloride 1,000 ML 1000 / 1000 1000 / 1000 500 / 500 @ 100 mls/hr IVC .Q10H [facility] Rx#: [id number] Oral 0 / 0 0 / 0 0 / 0 Output: Urine 200 / 200 800 / 800 600 / 600 Other: Meal NPO DINNER npo Percent of Meal Consumed 0% # Bowel Movements 0 0 Weight 54.3 kg Blood Glucose* 77 71 77 Patient Weight 04/18/18 23:59 Weight 54.3 kg General appearance: average body habitus, cooperative, no acute distress - Head Head exam: Present: atraumatic, normal inspection, normocephalic - Eye Eye exam: Present: normal appearance, conjuntiva pink, sclera anicteric - ENT ENT exam: Present: mucous membranes moist, normal exam - Neck Neck exam: Present: full ROM, normal inspection - Respiratory Respiratory exam: Present: CTAB. Absent: accessory muscle use, rales, rhonchi, wheezes - Cardiovascular Cardiovascular exam: Present: +S1, +S2, tachycardia. Absent: diastolic murmur, systolic murmur - GI/Abdominal GI/Abdominal exam: Present: normal bowel sounds, soft. Absent: rebound, rigid, tenderness - Extremities Exam Extremities exam: Present: normal inspection. Absent: pedal edema - Neurological Exam Neurological exam: Present: alert, no focal deficits - Psychiatric Psychiatric exam: Present: normal affect, normal mood - Skin Skin exam: Present: dry, normal color, warm Oncology: Obj Data - Labs CBC & Chem 7: 04/18/18 06:29 04/18/18 06:29 Labs: Laboratory Results - last 24 hr 04/17/18 04/18/18 04/18/18 17:00 05:17 06:29 WBC 6.0 RBC 4.84 Hgb 8.8 L Hct 30.2 L MCV 62.4 L MCH 18.2 L MCHC 29.1 L RDW 22.4 H Plt Count 307 MPV 8.8 L Immature Gran % 2.6 Seg Neutrophils % 62.1 Lymphocytes % 18.5 Monocytes % 15.4 Eosinophils % 1.2 Basophils % 0.2 Neutrophils # 3.7 Lymphocytes # 1.1 Monocytes # 0.9 Eosinophils # 0.1 Basophils # 0.0 Hyposegmented Neuts Present A Platelet Estimate Normal Microcytosis Present A Sodium Potassium Chloride Carbon Dioxide BUN Creatinine Est GFR ( Amer) Est GFR (Non-Af Amer) BUN/Creatinine Ratio Glucose POC Glucose 77 71 Calculated Osmolality Calcium 04/18/18 04/18/18 06:29 11:13 WBC RBC Hgb Hct MCV MCH MCHC RDW Plt Count MPV Immature Gran % Seg Neutrophils % Lymphocytes % Monocytes % Eosinophils % Basophils % Neutrophils # Lymphocytes # Monocytes # Eosinophils # Basophils # Hyposegmented Neuts Platelet Estimate Microcytosis Sodium 132 L Potassium 3.9 Chloride 105 Carbon Dioxide 16 L BUN 7 L Creatinine 0.50 L Est GFR ( Amer) > 60 Est GFR (Non-Af Amer) > 60 BUN/Creatinine Ratio 14 Glucose 65 L POC Glucose 77 Calculated Osmolality 270 L Calcium 8.4 L - ABG Interpretation ABG results: PT/INR, D-dimer PT 13.5 Seconds (9.4-12.1) H 04/15/18 19:51 Consult Discharge Plan - Plan Referrals: Lizz Ariza CNP [Primary Care Provider] - Sandeep Singh Jr, MD [Family Provider] - <Luisito Pedroza S - Last Filed: 04/18/18 21:06> Date of Encounter: 04/18/18 (1) Colonic mass Current Visit: Yes Status: Acute (2) Anemia Current Visit: Yes Status: Acute Qualifiers: Anemia type: iron deficiency Iron deficiency anemia type: chronic blood loss Qualified Code(s): D50.0 - Iron deficiency anemia secondary to blood loss (chronic) - Constitutional Vitals: Vital Signs Temp Pulse Resp BP Pulse Ox 04/18/18 20:48 98.5 F 108 15 156/89 98 04/18/18 18:56 98.4 F 16 162/91 97 04/18/18 11:06 97.9 F 105 15 118/77 96 04/18/18 07:43 97.9 F 103 16 145/80 04/18/18 03:21 98.2 F 107 16 129/74 94 Intake and Output 04/18/18 04/18/18 04/19/18 08:59 16:59 00:59 Intake Total 1000 / 1000 500 / 500 360 / 360 Output Total 800 / 800 975 / 975 500 / 500 Balance 200 / 200 -475 / -475 -140 / -140 Intake: IV Fluids 1000 / 1000 500 / 500 0.9 % Sodium Chloride 1,000 ML 1000 / 1000 500 / 500 @ 100 mls/hr IVC .Q10H [facility] Rx#: [id number] Oral 0 / 0 0 / 0 360 / 360 Output: Urine 800 / 800 975 / 975 500 / 500 Other: Meal npo Percent of Meal Consumed 0% # Voids 2 # Bowel Movements 0 Weight 54.3 kg Blood Glucose* 71 77 Patient Weight 04/19/18 00:59 Weight 54.3 kg Oncology: Obj Data - Labs CBC & Chem 7: 04/18/18 06:29 04/18/18 06:29 Labs: Laboratory Results - last 24 hr 04/18/18 04/18/18 04/18/18 05:17 06:29 06:29 WBC 6.0 RBC 4.84 Hgb 8.8 L Hct 30.2 L MCV 62.4 L MCH 18.2 L MCHC 29.1 L RDW 22.4 H Plt Count 307 MPV 8.8 L Immature Gran % 2.6 Seg Neutrophils % 62.1 Lymphocytes % 18.5 Monocytes % 15.4 Eosinophils % 1.2 Basophils % 0.2 Neutrophils # 3.7 Lymphocytes # 1.1 Monocytes # 0.9 Eosinophils # 0.1 Basophils # 0.0 Hyposegmented Neuts Present A Platelet Estimate Normal Microcytosis Present A Sodium 132 L Potassium 3.9 Chloride 105 Carbon Dioxide 16 L BUN 7 L Creatinine 0.50 L Est GFR ( Amer) > 60 Est GFR (Non-Af Amer) > 60 BUN/Creatinine Ratio 14 Glucose 65 L POC Glucose 71 Calculated Osmolality 270 L Calcium 8.4 L 04/18/18 11:13 WBC RBC Hgb Hct MCV MCH MCHC RDW Plt Count MPV Immature Gran % Seg Neutrophils % Lymphocytes % Monocytes % Eosinophils % Basophils % Neutrophils # Lymphocytes # Monocytes # Eosinophils # Basophils # Hyposegmented Neuts Platelet Estimate Microcytosis Sodium Potassium Chloride Carbon Dioxide BUN Creatinine Est GFR ( Amer) Est GFR (Non-Af Amer) BUN/Creatinine Ratio Glucose POC Glucose 77 Calculated Osmolality Calcium - ABG Interpretation ABG results: PT/INR, D-dimer PT 13.5 Seconds (9.4-12.1) H 04/15/18 19:51 Inpatient Charges Provider: Dr. Delilah Pedroza Follow up - Inpatient: [id number] - Attending Attestation I examined this patient and my medical decision-making was reviewed with the resident. I agree with the documented findings, disposition and treatment plan as described except to the extent set forth below. Ms. Mayo is doing relatively well today. She is passing flatness. She has not used the commode as of yet. A liquid diet is proposed for this evening. Patient as well as this , surgery will likely be deferred. I did review this with Dr. Loving of Gen. surgery. He is my impression she will likely require a bypass/diverting procedure some point in the future. She has yet to make decision regarding systemic therapy like to hold on further discussion for the time being. We will need to obtain patient if surgery deferred if patient wants to pursue therapy. We will continue to follow.
[2018-04-18] MEDS ORDERED: Patient Taking Own Medication 1 EACH PO SCH (14:00)
--- NOTE | 2018-04-18 14:25 | Electrocardiograph Report ---
[address] [address] Test Date: 2018-04-15 Pat Name: Nae Mayo Department: [id number] Room: 3A42 Gender: F [employer]: : 1940 Requested By: Hiren Pearson Order Number: [id number] Reading MD: Milan Garg Measurements Intervals Vincent Rate: 122 P: 41 MD: 150 QRS: 7 QRSD: 82 T: -32 QT: 298 QTc: 425 Interpretive Statements Sinus tachycardia Anteroseptal infarct, old Nonspecific ST-T changes Electronically Signed On 04-18-2018 14:23:24 EDT by Milan Garg
[2018-04-18] MEDS ORDERED: Lidocaine -MPF 1% 2 ML VIAL ID PRN (14:38)
[2018-04-19 04:09] LABS: Basophils % 0.2 %; Eosinophils # 0.1 K/mcL (0.0-0.6); Hematocrit 29.5 % (35.3-44.9); Hemoglobin 8.6 g/dL (11.5-15.4); Immature Granulocytes % 1.6 % (0-4); Lymphocytes % 15.5 %; Mean Corpuscular HGB Conc 29.2 g/dL (31.6-35.5); Mean Corpuscular Hemoglobin 18.1 pg (28.0-33.3); Mean Platelet Volume 9.1 fL (9.4-12.4); Monocytes % 16.9 %; Neutrophils # 3.9 K/mcL (1.6-8.9); Platelet Count 303 K/mcL (140-400); Red Blood Count 4.76 M/mcL (3.82-4.97); Red Cell Distribution Width 21.9 % (11.5-14.5); Segmented Neutrophils % 63.8 %
[2018-04-19 04:26] LABS: BUN/Creatinine Ratio 14 (6-26); Blood Urea Nitrogen 6 mg/dL (8-23); Calcium 8.2 mg/dL (8.6-10.3); Carbon Dioxide 20 mEq/L (23-29); Chloride 103 mEq/L (98-107); Glucose 80 mg/dL (70-105); Magnesium 1.8 mg/dL (1.6-2.6); Osmolality,Calculated 271 (280-300); Phosphorous 2.1 mg/dL (2.7-4.5); Potassium 3.7 mEq/L (3.5-5.1); Sodium 132 mEq/L (136-145); eGFR For Non-African Americans > 60 (> 60)
[2018-04-19 04:29] LABS: Microcytosis Present (Not Present); Platelet Estimate Normal (Normal)
[2018-04-19] MEDS: *HR* Heparin 5,000 UNIT/ML VIAL SQ SCH ×3 (06:01→21:30)
[2018-04-19] MEDS: Pantoprazole 40 MG VIAL IVP SCH ×2 (06:01→18:16)
[2018-04-19] MEDS: 0.9 % Sodium Chloride 1,000 ML IVC SCH ×3 (07:42→18:18)
--- NOTE | 2018-04-19 07:54 | General Surgery Progress Note ---
<Alma Juan - Last Filed: 04/19/18 09:15> Date of Encounter: 04/19/18 - Assessment and Plan (1) Peritoneal carcinomatosis Current Visit: Yes Status: Acute Located discharge from a surgical perspective. Surgery will sign off at this time. Thank you for allowing us to participate in [facility]. Please call or reconsult if any further questions or needs arise. Palliative care consult has been placed, discharge planning and further hospital course per primary team/palliative team. Objective Vital Signs - Last 8 Hours Temp Pulse Resp BP Pulse Ox 04/19/18 06:51 98.6 F 104 18 147/87 95 04/19/18 03:12 98.1 F 105 16 106/69 94 Intake and Output 04/18/18 04/19/18 04/19/18 23:59 07:59 15:59 Intake Total 1100 / 1100 1796 / 1796 Output Total 850 / 850 1100 / 1100 Balance 250 / 250 696 / 696 Intake: IV Fluids 500 / 500 1556 / 1556 0.9 % Sodium Chloride 1,000 ML 500 / 500 1556 / 1556 @ 100 mls/hr IVC .Q10H [facility] Rx#: [id number] Oral 600 / 600 240 / 240 Output: Urine 850 / 850 1100 / 1100 Other: Meal Dinner Weight 57.4 kg Patient Weight 04/19/18 23:59 Weight 57.4 kg - Labs 04/19/18 03:54 04/19/18 03:54 Diabetes panel 04/19/18 Range/Units 03:54 Sodium 132 L (136-145) mEq/L Potassium 3.7 (3.5-5.1) mEq/L Chloride 103 (98-107) mEq/L Carbon Dioxide 20 L (23-29) mEq/L BUN 6 L (8-23) mg/dL Creatinine 0.42 L (0.60-1.20) mg/dL Glucose 80 (70-105) mg/dL Calcium 8.2 L (8.6-10.3) mg/dL Calcium panel 04/19/18 Range/Units 03:54 Calcium 8.2 L (8.6-10.3) mg/dL Phosphorus 2.1 L (2.7-4.5) mg/dL Pituitary panel 04/19/18 Range/Units 03:54 Sodium 132 L (136-145) mEq/L Potassium 3.7 (3.5-5.1) mEq/L Chloride 103 (98-107) mEq/L Carbon Dioxide 20 L (23-29) mEq/L BUN 6 L (8-23) mg/dL Creatinine 0.42 L (0.60-1.20) mg/dL Glucose 80 (70-105) mg/dL Calcium 8.2 L (8.6-10.3) mg/dL Adrenal panel 04/19/18 Range/Units 03:54 Sodium 132 L (136-145) mEq/L Potassium 3.7 (3.5-5.1) mEq/L Chloride 103 (98-107) mEq/L Carbon Dioxide 20 L (23-29) mEq/L BUN 6 L (8-23) mg/dL Creatinine 0.42 L (0.60-1.20) mg/dL Glucose 80 (70-105) mg/dL Calcium 8.2 L (8.6-10.3) mg/dL Consult Discharge Plan - Plan Additional Instructions: Full liquid vs pureed diet to help decrease risk for obstruction. Diet per dietitian's recommendations. Patient should also consume 3 high-protein supplements daily. Home with hospice, further medication and continued care per hospitalist recommendations. No surgical follow-up is needed. If the patient begins having vomiting at home or increased abdominal pain and she would like to pursue a palliative surgical procedure she could schedule a follow-up with Dr. Loving as an outpatient. Referrals: Lizz Ariza CNP [Primary Care Provider] - Sandeep Singh Jr, MD [Family Provider] - <Salty Rausch - Last Filed: 04/19/18 09:23> Date of Encounter: 04/19/18 Time of Encounter: 07:30 - Assessment and Plan (1) Colon cancer metastasized to multiple sites Current Visit: Yes Status: Acute Patient diagnosed with metastatic colon carcinoma with apparent metastasis including peritoneal carcinomatosis, liver metastasis, and retroperitoneal lymph node association demonstrated by CT abdomen/pelvis. Oncology was consulted and agrees on diagnosis. -Patient is not having any abdominal symptoms right now; no reason to do palliative bypass surgery at this time -Patient has no vomiting/nausea on full liquid diet at this time. -Informed patient when to return to the hospital -Dietitian to be consulted for discharge planning -Okay to be discharged per surgical perspective -Recommend hospice care (2) Small bowel obstruction Current Visit: Yes Status: Acute see discharge plan above. (3) Anemia due to GI blood loss Current Visit: Yes Status: Acute -heme/onc consulted for discharge planning, Subjective Patient reports: tolerating liquids well, voiding w/o difficulty, flatus, no bowel movement, afebrile Objective Vital Signs - Last 8 Hours Temp Pulse Resp BP Pulse Ox 04/19/18 06:51 98.6 F 104 18 147/87 95 04/19/18 03:12 98.1 F 105 16 106/69 94 04/19/18 00:49 98.2 F 102 16 149/87 95 Intake and Output 04/18/18 04/18/18 04/19/18 15:59 23:59 07:59 Intake Total 500 / 500 1100 / 1100 1796 / 1796 Output Total 975 / 975 850 / 850 1100 / 1100 Balance -475 / -475 250 / 250 696 / 696 Intake: IV Fluids 500 / 500 500 / 500 1556 / 1556 0.9 % Sodium Chloride 1,000 ML 500 / 500 500 / 500 1556 / 1556 @ 100 mls/hr IVC .Q10H [facility] Rx#: [id number] Oral 0 / 0 600 / 600 240 / 240 Output: Urine 975 / 975 850 / 850 1100 / 1100 Other: Meal npo Dinner Percent of Meal Consumed 0% # Voids 2 Weight 57.4 kg Blood Glucose* 77 Patient Weight 04/19/18 23:59 Weight 57.4 kg - General physical appearance cachectic - Neck Neck exam: trachea midline - Respiratory clear to auscultation - Abdomen Abdomen: Present: bowel sounds present (hyperactive "gallardo" bowel sounds appreciated), soft, non tender - Integumentary no rash - Musculoskeletal normal gait, normal posture - Psychiatric oriented to time, oriented to person, oriented to place, speech is normal - Labs 04/19/18 03:54 04/19/18 03:54 Diabetes panel 04/19/18 Range/Units 03:54 Sodium 132 L (136-145) mEq/L Potassium 3.7 (3.5-5.1) mEq/L Chloride 103 (98-107) mEq/L Carbon Dioxide 20 L (23-29) mEq/L BUN 6 L (8-23) mg/dL Creatinine 0.42 L (0.60-1.20) mg/dL Glucose 80 (70-105) mg/dL Calcium 8.2 L (8.6-10.3) mg/dL Calcium panel 04/19/18 Range/Units 03:54 Calcium 8.2 L (8.6-10.3) mg/dL Phosphorus 2.1 L (2.7-4.5) mg/dL Pituitary panel 04/19/18 Range/Units 03:54 Sodium 132 L (136-145) mEq/L Potassium 3.7 (3.5-5.1) mEq/L Chloride 103 (98-107) mEq/L Carbon Dioxide 20 L (23-29) mEq/L BUN 6 L (8-23) mg/dL Creatinine 0.42 L (0.60-1.20) mg/dL Glucose 80 (70-105) mg/dL Calcium 8.2 L (8.6-10.3) mg/dL Adrenal panel 04/19/18 Range/Units 03:54 Sodium 132 L (136-145) mEq/L Potassium 3.7 (3.5-5.1) mEq/L Chloride 103 (98-107) mEq/L Carbon Dioxide 20 L (23-29) mEq/L BUN 6 L (8-23) mg/dL Creatinine 0.42 L (0.60-1.20) mg/dL Glucose 80 (70-105) mg/dL Calcium 8.2 L (8.6-10.3) mg/dL <Ammon Loving - Last Filed: 04/19/18 13:37> Date of Encounter: 04/19/18 - Assessment and Plan (1) Colon cancer metastasized to multiple sites Current Visit: Yes Status: Acute Objective Vital Signs - Last 8 Hours Temp Pulse Resp BP Pulse Ox 04/19/18 10:35 98.2 F 109 18 143/86 95 04/19/18 06:51 98.6 F 104 18 147/87 95 Intake and Output 04/18/18 04/19/18 04/19/18 23:59 07:59 15:59 Intake Total 1100 / 1100 1796 / 1796 Output Total 850 / 850 1100 / 1100 Balance 250 / 250 696 / 696 Intake: IV Fluids 500 / 500 1556 / 1556 0.9 % Sodium Chloride 1,000 ML 500 / 500 1556 / 1556 @ 100 mls/hr IVC .Q10H [facility] Rx#: [id number] Oral 600 / 600 240 / 240 Output: Urine 850 / 850 1100 / 1100 Other: Meal Dinner Weight 57.4 kg Patient Weight 04/19/18 23:59 Weight 57.4 kg - Labs 04/19/18 03:54 04/19/18 03:54 Diabetes panel 04/19/18 Range/Units 03:54 Sodium 132 L (136-145) mEq/L Potassium 3.7 (3.5-5.1) mEq/L Chloride 103 (98-107) mEq/L Carbon Dioxide 20 L (23-29) mEq/L BUN 6 L (8-23) mg/dL Creatinine 0.42 L (0.60-1.20) mg/dL Glucose 80 (70-105) mg/dL Calcium 8.2 L (8.6-10.3) mg/dL Calcium panel 04/19/18 Range/Units 03:54 Calcium 8.2 L (8.6-10.3) mg/dL Phosphorus 2.1 L (2.7-4.5) mg/dL Pituitary panel 04/19/18 Range/Units 03:54 Sodium 132 L (136-145) mEq/L Potassium 3.7 (3.5-5.1) mEq/L Chloride 103 (98-107) mEq/L Carbon Dioxide 20 L (23-29) mEq/L BUN 6 L (8-23) mg/dL Creatinine 0.42 L (0.60-1.20) mg/dL Glucose 80 (70-105) mg/dL Calcium 8.2 L (8.6-10.3) mg/dL Adrenal panel 04/19/18 Range/Units 03:54 Sodium 132 L (136-145) mEq/L Potassium 3.7 (3.5-5.1) mEq/L Chloride 103 (98-107) mEq/L Carbon Dioxide 20 L (23-29) mEq/L BUN 6 L (8-23) mg/dL Creatinine 0.42 L (0.60-1.20) mg/dL Glucose 80 (70-105) mg/dL Calcium 8.2 L (8.6-10.3) mg/dL - Attending Attestation I examined this patient and my medical decision-making was reviewed with the Resident Physician. I agree with the documented findings, disposition and treatment plan as described except to the extent set forth below. The patient is seen and evaluated on morning rounds with the resident, and medical student, and clinical nurse practitioner. The patient has inoperable cancer involving multiple abdominal organs. She should have palliative bypass surgery only for recalcitrant nausea and vomiting. I favor discharged home with palliative care and hospice. Ammon Loving MD FACS
--- NOTE | 2018-04-19 10:22 | Internal Med Progress Note ---
Hospitalist Progress Note - Encounter Date of Encounter: 04/19/18 Time of Encounter: 10:20 - Subjective Interval History: Patient seen and examined patient been evaluated by hospice and the plan is for discharge tomorrow with hospice care Currently in no acute issues she is not having any pain - Exam Vitals: Temp Pulse Resp BP Pulse Ox 98.6 F 104 18 147/87 95 04/19/18 06:51 04/19/18 06:51 04/19/18 06:51 04/19/18 06:51 04/19/18 06:51 Exam: Gen: Vitals noted. No acute distress. HEENT: Normocephalic, atraumatic. Foul odor from breath Neck: Supple. No adenopathy. Cardiac: Regular rate and rhythm, rapid, no murmur, +S1/S2 Pulmonary: CTA bilaterally, no wheezes, rales or rhonchi, equal chest expansion Abdomen: soft, very mild tenderness to palpation, no guarding. There is a firmness in the right lower quadrant which is more significant than the rest of her abdomen. This is tender to palpation. Extremities: no BLE edema, nontender calf, no cyanosis or clubbing Neuro: moves all extremities, no focal deficits. A&Ox3 Psych: Appropriate mood and behavior - Assessment and Plan (1) Colonic mass Current Visit: Yes Status: Acute Assessment and Plan: Colon cancer with multiple metastases (2) Peritoneal carcinomatosis Current Visit: Yes Status: Acute Assessment and Plan: Patient is being seen by hospice care and the plan is for home hospice (3) Hypertension Current Visit: Yes Status: Chronic Assessment and Plan: Chronic blood pressures well controlled (4) Anemia Current Visit: Yes Status: Acute Assessment and Plan: Hemoglobin is stable (5) Colon cancer metastasized to multiple sites Current Visit: Yes Status: Acute (6) Partial small bowel obstruction Current Visit: Yes Status: Acute Assessment and Plan: No acute nausea vomiting - Time Spent with Patient Total time spent is greater than 50% in coordination of care (as documented) at patient's floor/unit and/or counseling patient: Internal Medicine: Result - Labs CBC & Chem 7: 04/19/18 03:54 04/19/18 03:54 Labs: Short CBC 04/18/18 04/19/18 Range/Units 06:29 03:54 WBC 6.1 (4.3-11.1) K/mcL Hgb 8.6 L (11.5-15.4) g/dL Hct 29.5 L (35.3-44.9) % Plt Count 303 (140-400) K/mcL Neutrophils # 3.7 3.9 (1.6-8.9) K/mcL BMP 04/19/18 03:54 Sodium 132 L Potassium 3.7 Chloride 103 Carbon Dioxide 20 L BUN 6 L Creatinine 0.42 L Glucose 80 Calcium 8.2 L - ABG Interpretation ABG results: PT/INR, D-dimer PT 13.5 Seconds (9.4-12.1) H 04/15/18 19:51 Consult Discharge Plan - Plan Additional Instructions: Full liquid vs pureed diet to help decrease risk for obstruction. Diet per dietitian's recommendations. Patient should also consume 3 high-protein supplements daily. Home with hospice, further medication and continued care per hospitalist recommendations. No surgical follow-up is needed. If the patient begins having vomiting at home or increased abdominal pain and she would like to pursue a palliative surgical procedure she could schedule a follow-up with Dr. Loving as an outpatient. Referrals: Lizz Ariza CNP [Primary Care Provider] - Sandeep Singh Jr, MD [Family Provider] - (3) Hypertension Qualifiers: Hypertension type: essential hypertension Qualified Code(s): I10 - Essential (primary) hypertension (4) Anemia Qualifiers: Anemia type: iron deficiency Iron deficiency anemia type: chronic blood loss Qualified Code(s): D50.0 - Iron deficiency anemia secondary to blood loss ( chronic)
--- NOTE | 2018-04-19 11:01 | Palliative - Consult Note ---
Date of Encounter: 04/19/18 Time of Encounter: 09:50 - Assessment and Plan (1) Nausea & vomiting Current Visit: Yes Status: Acute Assessment and plan: Continue Ondansetron. Has not utilized. No emesis since admission. Monitor Qualifiers: Qualified Code(s): R11.2 - Nausea with vomiting, unspecified (2) Abdominal pain Current Visit: Yes Status: Acute Assessment and plan: Will begin low dose Roxanol PRN if needed and monitor. Qualifiers: Abdominal location: right lower quadrant Qualified Code(s): R10.31 - Right lower quadrant pain (3) Anxiety about health Current Visit: Yes Status: Acute Assessment and plan: Provide emotional support. Low dose Lorazepam PRN if needed. (4) Advance care planning Current Visit: Yes Status: Acute Assessment and plan: Discussed with pt at length - no family here. Patient is able to verbalize her medical condition. 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 One child has , and she is . Her daughter Marlys is her medical power of litigation attorney associate. Marlys and her 2 children (10 &14) temporarily living with her as she was recently . Patient understands that her prognosis is poor and she has limited time. Her biggest concern is upsetting her grandchildren, who she has always helped provide care for. She does desire hospice care at home, however, states that they had 2 family previous family members (her dad and her sister), and one had a good experience, the other did not. Patient desires to speak with her sister and try and obtain that information prior to making any final hospice decision. She denies any needs for medical equipment at this time, and states she will ask them to provide it when she needs it. Although her family knows she has cancer, she has not discussed with them prognosis shared by the medical team. I will follow up later this afternoon, and see if she touched base with family and has final hospice decision. D/W Dr. Browne. (5) Colonic mass Current Visit: Yes Status: Acute Assessment and plan: Surgical and oncology notes reviewed. (6) Peritoneal carcinomatosis Current Visit: Yes Status: Acute (7) Bowel obstruction Current Visit: Yes Status: Acute Qualifiers: Intestinal obstruction type: unspecified Intestinal obstruction extent: unspecified extent Qualified Code(s): K56.609 - Unspecified intestinal obstruction, unspecified as to partial versus complete obstruction Palliative-CN HPI - Data of Consult Consult date: 04/19/18 Requesting Physician: Candi Gamez MD Primary Care Provider: Lizz Ariza CNP Family Provider: Sandeep Singh Jr, MD - Consult Narrative History of present illness: Ms. Mayo is a 77 year old female who presented to the ER with c/o abd pain and nausea vomiting. States that the pain started weeks ago and has been increasing. No BM in the last few days, and stool has decreased in caliber, and been more difficult to pass. She had outpatient CT performed and was found to have large colon mass with obstruction, liver metastasis and peritoneal carcinamatosis. This patient has been relatively healthy, with no previous chronic health conditions, however, does states that she has had weight loss. States she lost 30 lbs in last yr - but attributed that to retiring and [place] better. However, she states she has had an additional 7 lbs weight loss in the past 3 weeks. Results of scans were discussion with pt. Patient is . Had 2 children - one has , and daughter Marlys and her 2 children has been living with them r/t recent divorce. She denies pain, however, does have some tenderness RLQ. You can hear her bowel sounds audibly at bedside. Denies nausea at present and states she has been tolerating clear liquds. Denies pain or discomfort at this time. CC: Candi Gamez MD - Time Spent with Patient Time: Total time spent is greater than 50% in coordination of care (as documented) at patient's floor/unit and/or counseling patient: Greater than 35 minutes (45 min spent with patient in counseling and coordination of care) Past Med Surg Social Fam HX - Past Medical History Medical history: GERD - Social History Smoking Status: Never smoker Alcohol use: none Drug use: none - Family History Mother Adopted: No Living Status: Age at : 96 Cause of : stroke Hx Family Cardiac Disorders: Yes (mother irregular heart beat.) Hx Family Respiratory Disorders: No Hx Family Cancer: No Hx Family GI Disorders: No Hx Family Genitourinary Disorders: No Hx Family Endocrine Disorder: Yes (dad DM) Hx Family Musculoskeletal Disorders: No Hx Family Neuromuscular Disorders: No Hx Family Neurologic Disorders: No Hx Family HEENT Disorders: Yes (Mother hearing r/t spinal mengitis) Hx Family Autoimmune Disorders: No Hx Family Reproductive Disorders: No Hx Family Psychosocial Disorders: No Hx Family Medical Disorders: No Medications and Allergies Loratadine [Claritin] 10 mg PO DAILY 04/15/18 [History] Ranitidine HCl [Acid Multimedia Manager] 75 mg PO DAILY PRN 04/15/18 [History] 3 Allergy/AdvReac Type Severity Reaction Status Date / Time No Known Allergies Allergy Verified 04/15/18 19:53 All systems: reviewed and no additional remarkable complaints except as stated ( abd firmness and distention, RLQ tenderness, intermittent nausea/vomiting, constipation, weight loss') Palliative Care-Exam - Constitutional Vitals: Temp Pulse Resp BP Pulse Ox 98.2 F 109 18 143/86 95 04/19/18 10:35 04/19/18 10:35 04/19/18 10:35 04/19/18 10:35 04/19/18 10:35 General appearance: Present: average body habitus, cooperative, no acute distress - Head Head Exam: Present: normal inspection, normocephalic - Respiratory Respiratory exam: Present: decreased breath sounds, CTAB - Cardiovascular Cardiovascular exam: Present: tachycardia - GI/Abdominal Exam GI/Abdominal exam: Present: distended, firm, hyperactive bowel sounds - Extremities Exam Extremities exam: Present: normal capillary refill, normal inspection - Neurological Exam Neurological exam: Present: alert, oriented X3, strengths equal and symetr throughout - Skin Skin exam: Present: dry, pallor, warm Internal Medicine - CN: Reslt - Labs CBC & Chem 7: 04/19/18 03:54 04/19/18 03:54 Labs: Short CBC 04/19/18 Range/Units 03:54 WBC 6.1 (4.3-11.1) K/mcL Hgb 8.6 L (11.5-15.4) g/dL Hct 29.5 L (35.3-44.9) % Plt Count 303 (140-400) K/mcL Neutrophils # 3.9 (1.6-8.9) K/mcL BMP 04/19/18 03:54 Sodium 132 L Potassium 3.7 Chloride 103 Carbon Dioxide 20 L BUN 6 L Creatinine 0.42 L Glucose 80 Calcium 8.2 L - ABG Interpretation ABG results: PT/INR, D-dimer PT 13.5 Seconds (9.4-12.1) H 04/15/18 19:51 Consult Discharge Plan - Plan Additional Instructions: Full liquid vs pureed diet to help decrease risk for obstruction. Diet per dietitian's recommendations. Patient should also consume 3 high-protein supplements daily. Home with hospice, further medication and continued care per hospitalist recommendations. No surgical follow-up is needed. If the patient begins having vomiting at home or increased abdominal pain and she would like to pursue a palliative surgical procedure she could schedule a follow-up with Dr. Loving as an outpatient. Referrals: Lizz Ariza CNP [Primary Care Provider] - Sandeep Singh Jr, MD [Family Provider] - Palliative Quality Palliative Quality: Screen for Code Status: Yes, Screen for Goals of Care: Yes, Screen for Pain: Yes, If Pain Regimen Started, Initiate Bowel Regimen: NA, Screen for Nausea/Vomitting: Yes
[2018-04-19] MEDS ORDERED: *HR* LORazepam Oral Conc 2 MG/ML SL PRN (11:28)
[2018-04-19] MEDS ORDERED: MORPHINE SUL Oral CONC 10 MG/0.5 ML ORAL.SYG SL PRN (11:29)
--- NOTE | 2018-04-19 13:42 | Event Note ---
Date of Encounter: 04/19/18 Time of Encounter: 13:40 Met with pt, her daughter and sister was present. Patient stated that she desired [facility] to provide her care. Referral information called to [facility] at [facility]. Patient continues to deny need or want for any medical equipment at this time. Family asked questions in regards to her condition and some things to anticipate, and provided education on diet as well as signs/symptoms to watch for with obstruction. Anticipate discharge tomorrow.
--- NOTE | 2018-04-19 15:27 | Oncology Inp Progress Note ---
Date of Encounter: 04/19/18 Time of Encounter: 15:00 (1) Colon cancer metastasized to multiple sites Current Visit: Yes Status: Acute Assessment and plan: She has an obstructing right colon mass. 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 She has probable liver metastasis although minimal disease burden. Following multiple conversations today regarding goals of care, after discussing options further with Dr. Pedroza, patient wishes to pursue a more aggressive approach which would ultimately allow her more time with her family. Patient wishes to pursue surgical resection to not only help to alleviate further symptoms related to obstruction but also with the intent to pursue chemotherapy. She will also have mediport placement during surgery. This was discussed with the surgical team, intervention will tentatively be planned for tomorrow. Patient will be NPO after midnight. Systemic treatment options to be discussed following final pathology report. We will continue to follow patient during this hospital stay. Oncology: Subj Interval history: Ms. Mayo is resting in bed. Her friend is at bedside. She has no physical complaints at this time. She denies abdominal pain other than tenderness with palpation, denies nausea or vomiting. She is tolerating a full liquid diet but reports early satiety. She is passing gas, no bowel movement in several days. - Constitutional Vitals: Vital Signs Temp Pulse Resp BP Pulse Ox 04/19/18 14:39 98.3 F 111 18 135/82 95 04/19/18 10:35 98.2 F 109 18 143/86 95 04/19/18 06:51 98.6 F 104 18 147/87 95 04/19/18 03:12 98.1 F 105 16 106/69 94 04/19/18 00:49 98.2 F 102 16 149/87 95 04/18/18 20:48 98.5 F 108 15 156/89 98 04/18/18 18:56 98.4 F 16 162/91 97 Intake and Output 04/18/18 04/19/18 04/19/18 23:59 07:59 15:59 Intake Total 1100 / 1100 1796 / 1796 240 / 240 Output Total 850 / 850 1100 / 1100 650 / 650 Balance 250 / 250 696 / 696 -410 / -410 Intake: IV Fluids 500 / 500 1556 / 1556 0.9 % Sodium Chloride 1,000 ML 500 / 500 1556 / 1556 @ 100 mls/hr IVC .Q[facility] Rx#: [id number] Oral 600 / 600 240 / 240 240 / 240 Output: Urine 850 / 850 1100 / 1100 650 / 650 Other: Meal Dinner CLEARS Weight 57.4 kg Patient Weight 04/19/18 23:59 Weight 57.4 kg General appearance: cooperative, no acute distress, no febrile - Head Head exam: Present: atraumatic - ENT ENT exam: Present: mucous membranes moist - Respiratory Respiratory exam: Present: CTAB. Absent: respiratory distress - Cardiovascular Cardiovascular exam: Present: RRR, +S1, +S2 - GI/Abdominal GI/Abdominal exam: Present: distended, hypoactive bowel sounds, soft, tenderness. Absent: guarding, rebound - Extremities Exam Extremities exam: Absent: calf tenderness - Neurological Exam Neurological exam: Present: alert, oriented X3, no focal deficits, strengths equal and symetr throughout - Psychiatric Psychiatric exam: Present: normal affect, normal mood - Skin Skin exam: Present: dry, intact, normal color, warm Oncology: Obj Data - Labs CBC & Chem 7: 04/19/18 03:54 04/19/18 03:54 Labs: Laboratory Results - last 24 hr 04/19/18 04/19/18 03:54 03:54 WBC 6.1 RBC 4.76 Hgb 8.6 L Hct 29.5 L MCV 62.0 L MCH 18.1 L MCHC 29.2 L RDW 21.9 H Plt Count 303 MPV 9.1 L Immature Gran % 1.6 Seg Neutrophils % 63.8 Lymphocytes % 15.5 Monocytes % 16.9 Eosinophils % 2.0 Basophils % 0.2 Neutrophils # 3.9 Lymphocytes # 1.0 Monocytes # 1.0 Eosinophils # 0.1 Basophils # 0.0 Platelet Estimate Normal Microcytosis Present A Sodium 132 L Potassium 3.7 Chloride 103 Carbon Dioxide 20 L BUN 6 L Creatinine 0.42 L Est GFR ( Amer) > 60 Est GFR (Non-Af Amer) > 60 BUN/Creatinine Ratio 14 Glucose 80 Calculated Osmolality 271 L Calcium 8.2 L Phosphorus 2.1 L Magnesium 1.8 - ABG Interpretation ABG results: PT/INR, D-dimer PT 13.5 Seconds (9.4-12.1) H 04/15/18 19:51 Consult Discharge Plan - Plan Additional Instructions: Full liquid vs pureed diet to help decrease risk for obstruction. Diet per dietitian's recommendations. Patient should also consume 3 high-protein supplements daily. Home with hospice, further medication and continued care per hospitalist recommendations. No surgical follow-up is needed. If the patient begins having vomiting at home or increased abdominal pain and she would like to pursue a palliative surgical procedure she could schedule a follow-up with Dr. Loving as an outpatient. Referrals: Lizz Ariza CNP [Primary Care Provider] - Sandeep Singh Jr, MD [Family Provider] - Inpatient Charges Provider: Dr. Delilah Pedroza
[2018-04-20] MEDS: 0.9 % Sodium Chloride 1,000 ML IVC SCH ×2 (03:56→20:24)
[2018-04-20 04:07] LABS: Basophils % 0.2 %; Eosinophils % 0.4 %; Hematocrit 30.7 % (35.3-44.9); Hemoglobin 9.1 g/dL (11.5-15.4); Immature Granulocytes % 1.3 % (0-4); Lymphocytes # 0.8 K/mcL (0.6-4.6); Lymphocytes % 14.7 %; Mean Corpuscular HGB Conc 29.6 g/dL (31.6-35.5); Mean Corpuscular Hemoglobin 18.2 pg (28.0-33.3); Mean Corpuscular Volume 61.5 fL (83.0-100.0); Mean Platelet Volume 8.9 fL (9.4-12.4); Monocytes # 0.9 K/mcL (0.0-1.3); Monocytes % 16.4 %; Neutrophils # 3.6 K/mcL (1.6-8.9); Platelet Count 315 K/mcL (140-400); Red Blood Count 4.99 M/mcL (3.82-4.97); Red Cell Distribution Width 22.3 % (11.5-14.5)
[2018-04-20 04:26] LABS: Anisocytosis 3+ (Not Present); BUN/Creatinine Ratio 16 (6-26); Basophilic Stippling 1+ (Not Present); Blood Urea Nitrogen 6 mg/dL (8-23); Calcium 8.3 mg/dL (8.6-10.3); Carbon Dioxide 19 mEq/L (23-29); Chloride 100 mEq/L (98-107); Glucose 85 mg/dL (70-105); Magnesium 1.8 mg/dL (1.6-2.6); Microcytosis Present (Not Present); Osmolality,Calculated 267 (280-300); Phosphorous 2.9 mg/dL (2.7-4.5); Platelet Estimate Normal (Normal); Poikilocytosis 1+ (Not Present); Potassium 3.4 mEq/L (3.5-5.1); Sodium 130 mEq/L (136-145); eGFR For Non-African Americans > 60 (> 60)
[2018-04-20] MEDS: Pantoprazole 40 MG VIAL IVP SCH (05:28)
[2018-04-20] MEDS: *HR* Heparin 5,000 UNIT/ML VIAL SQ SCH ×3 (05:29→21:44)
--- NOTE | 2018-04-20 09:27 | Palliative Progress Note ---
Date of Encounter: 04/20/18 Time of Encounter: 09:25 - Assessment and plan (1) Nausea & vomiting Current Visit: Yes Status: Acute Assessment and plan: Continues with Ondansetron PRN, but has not required last 24 hours. MOnitor Qualifiers: Qualified Code(s): R11.2 - Nausea with vomiting, unspecified (2) Abdominal pain Current Visit: Yes Status: Acute Assessment and plan: Has SL Oxycodone PRN but has not requested or required. MOnitor. Qualifiers: Abdominal location: right lower quadrant Qualified Code(s): R10.31 - Right lower quadrant pain (3) Anxiety about health Current Visit: Yes Status: Acute (4) Advance care planning Current Visit: Yes Status: Acute Assessment and plan: Patient has decided to proceed with surgery and aggressive treatment for disease. We discussed transition of code status, as she completed DNRCC yesterday - code status was upgraded to DNRCC-Arrest. We discussed that during surgery, everything would be done. She is ok with short term intubation. She did ask to revise advanced directives, as they cannot find the forms that they previously had. Provided blank forms for her and her daughter to review when she arrives and will f/u to complete these. Called [facility] to cancel referral - did state she would be potential for home health. Will continue to follow clinical course at a distance and provide support as needed. (5) Colonic mass Current Visit: Yes Status: Acute (6) Peritoneal carcinomatosis Current Visit: Yes Status: Acute (7) Bowel obstruction Current Visit: Yes Status: Acute Qualifiers: Intestinal obstruction type: unspecified Intestinal obstruction extent: unspecified extent Qualified Code(s): K56.609 - Unspecified intestinal obstruction, unspecified as to partial versus complete obstruction - Time Spent With Patient Total time spent is greater than 50% in coordination of care (as documented) at patient's floor/unit and/or counseling patient: 25 - 35 minutes - Subjective Interval history: Patient awake and alert, pleasant. She has changed her decision after speaking further with oncology last pm, and would like to proceed with surgery and pursue chemotherapy once recovered. She is comfortable this am, no nausea or vomiting. Some RLQ tenderness but has not desired any pain medication. No family members have arrived as of yet. - Constitutional Vitals: Abnormal lab results RBC 4.99 M/mcL (3.82-4.97) H 04/20/18 03:45 Hgb 9.1 g/dL (11.5-15.4) L 04/20/18 03:45 Hct 30.7 % (35.3-44.9) L 04/20/18 03:45 MCV 61.5 fL (83.0-100.0) L 04/20/18 03:45 MCH 18.2 pg (28.0-33.3) L 04/20/18 03:45 MCHC 29.6 g/dL (31.6-35.5) L 04/20/18 03:45 RDW 22.3 % (11.5-14.5) H 04/20/18 03:45 MPV 8.9 fL (9.4-12.4) L 04/20/18 03:45 Hyposegmented Neuts Present (Not Present) A 04/18/18 06:29 Hypochromasia Present (Not Present) A 04/17/18 05:38 Poikilocytosis 1+ (Not Present) A 04/20/18 03:45 Basophilic Stippling 1+ (Not Present) A 04/20/18 03:45 Anisocytosis 3+ (Not Present) A 04/20/18 03:45 Microcytosis Present (Not Present) A 04/20/18 03:45 Haptoglobin 293 mg/dL (30-200) H 04/15/18 19:51 PT 13.5 Seconds (9.4-12.1) H 04/15/18 19:51 Sodium 130 mEq/L (136-145) L 04/20/18 03:45 Potassium 3.4 mEq/L (3.5-5.1) L 04/20/18 03:45 Carbon Dioxide 19 mEq/L (23-29) L 04/20/18 03:45 BUN 6 mg/dL (8-23) L 04/20/18 03:45 Creatinine 0.37 mg/dL (0.60-1.20) L 04/20/18 03:45 Calculated Osmolality 267 (280-300) L 04/20/18 03:45 Calcium 8.3 mg/dL (8.6-10.3) L 04/20/18 03:45 Serum Total Protein 5.7 g/dL (6.4-8.9) L 04/16/18 14:50 Globulin 2.2 g/dL (2.4-3.5) L 04/16/18 14:50 Ur Specific [place] 1.027 (1.010-1.025) H 04/16/18 05:17 Urine Ketones 40 mg/dL (Negative) H 04/16/18 05:17 Urine Urobilinogen 2.0 mg/dL (Normal) H 04/16/18 05:17 Ur Leukocyte Esterase Moderate (Negative) H 04/16/18 05:17 Urine Microscopic WBC 3-5 per hpf (0-3) H 04/16/18 05:17 Ur Squamous Epith Cells Many per lpf (None-Few) H 04/16/18 05:17 Ur Culture Indicated? NO. (NO) A 04/16/18 05:17 General appearance: Present: no acute distress - Respiratory Respiratory exam: Present: CTAB - Cardiovascular Cardiovascular exam: Present: +S1, +S2 - GI/Abdominal GI/Abdominal exam: Present: diminished bowel sounds, distended - Extremities Exam Extremities exam: Present: normal capillary refill, normal inspection - Neurological Exam Neurological exam: Present: alert, oriented X3, strengths equal and symetr throughout - Skin Skin exam: Present: dry, pallor, warm Palliative Quality Palliative Quality: Screen for Code Status: Yes, Screen for Goals of Care: Yes, Screen for Pain: Yes, If Pain Regimen Started, Initiate Bowel Regimen: NA, Screen for Nausea/Vomitting: Yes Code Status: 04/19/18 13:59 DNR [Resuscitation Status: Active] [RES] Routine Comment: Resuscitation Status: DNR-Comfort Care 04/20/18 09:04 DNR [Resuscitation Status: Active] [RES] Routine Comment: Resuscitation Status: DNR-Comfort Care-Arrest - Labs CBC & Chem 7: 04/20/18 03:45 04/20/18 03:45 Labs: Laboratory Results - last 24 hr 04/20/18 04/20/18 03:45 03:45 WBC 5.4 RBC 4.99 H Hgb 9.1 L Hct 30.7 L MCV 61.5 L MCH 18.2 L MCHC 29.6 L RDW 22.3 H Plt Count 315 MPV 8.9 L Immature Gran % 1.3 Seg Neutrophils % 67.0 Lymphocytes % 14.7 Monocytes % 16.4 Eosinophils % 0.4 Basophils % 0.2 Neutrophils # 3.6 Lymphocytes # 0.8 Monocytes # 0.9 Eosinophils # 0.0 Basophils # 0.0 Platelet Estimate Normal Poikilocytosis 1+ A Basophilic Stippling 1+ A Anisocytosis 3+ A Microcytosis Present A Sodium 130 L Potassium 3.4 L Chloride 100 Carbon Dioxide 19 L BUN 6 L Creatinine 0.37 L Est GFR ( Amer) > 60 Est GFR (Non-Af Amer) > 60 BUN/Creatinine Ratio 16 Glucose 85 Calculated Osmolality 267 L Calcium 8.3 L Phosphorus 2.9 Magnesium 1.8 - ABG Interpretation ABG results: PT/INR, D-dimer PT 13.5 Seconds (9.4-12.1) H 04/15/18 19:51 Consult Discharge Plan - Plan Additional Instructions: Full liquid vs pureed diet to help decrease risk for obstruction. Diet per dietitian's recommendations. Patient should also consume 3 high-protein supplements daily. Home with hospice, further medication and continued care per hospitalist recommendations. No surgical follow-up is needed. If the patient begins having vomiting at home or increased abdominal pain and she would like to pursue a palliative surgical procedure she could schedule a follow-up with Dr. Loving as an outpatient. Referrals: Lizz Ariza CNP [Primary Care Provider] - Sandeep Singh Jr, MD [Family Provider] -
--- NOTE | 2018-04-20 09:50 | Internal Med Progress Note ---
Hospitalist Progress Note - Encounter Date of Encounter: 04/20/18 Time of Encounter: 09:52 - Subjective Interval History: Patient seen and examined patient been evaluated by hospice and the plan is for discharge tomorrow with hospice care Currently in no acute issues she is not having any pain 04/20 Patient seen and examined. Events noted oncology follow evaluation noted also palliative care evaluation patient will undergo surgery this afternoon for bowel obstruction and plan is to proceed with chemotherapy in the near future - Exam Vitals: Temp Pulse Resp BP Pulse Ox 98.0 F 103 16 147/80 96 04/20/18 07:41 04/20/18 07:41 04/20/18 07:41 04/20/18 07:41 04/20/18 07:41 Exam: Gen: Vitals noted. No acute distress. HEENT: Normocephalic, atraumatic. Foul odor from breath Neck: Supple. No adenopathy. Cardiac: Regular rate and rhythm, rapid, no murmur, +S1/S2 Pulmonary: CTA bilaterally, no wheezes, rales or rhonchi, equal chest expansion Abdomen: soft, very mild tenderness to palpation, no guarding. There is a firmness in the right lower quadrant which is more significant than the rest of her abdomen. This is tender to palpation. Extremities: no BLE edema, nontender calf, no cyanosis or clubbing Neuro: moves all extremities, no focal deficits. A&Ox3 Psych: Appropriate mood and behavior - Assessment and Plan (1) Colonic mass Current Visit: Yes Status: Acute Assessment and Plan: Advanced colon cancer with carcinomatosis Plan has changed from hospice care to chemotherapy in the near future (2) Peritoneal carcinomatosis Current Visit: Yes Status: Acute Assessment and Plan: Plan is for surgical intervention this afternoon (3) Hypertension Current Visit: Yes Status: Chronic Assessment and Plan: Patient is nothing by mouth for surgery place when necessary hydralazine (4) Anemia Current Visit: Yes Status: Acute (5) Colon cancer metastasized to multiple sites Current Visit: Yes Status: Acute Assessment and Plan: Oncology follow-up evaluation noted (6) Partial small bowel obstruction Current Visit: Yes Status: Acute Assessment and Plan: Surgical intervention plan for this afternoon - Time Spent with Patient Total time spent is greater than 50% in coordination of care (as documented) at patient's floor/unit and/or counseling patient: Internal Medicine: Result - Labs CBC & Chem 7: 04/20/18 03:45 04/20/18 03:45 Labs: Short CBC 04/20/18 Range/Units 03:45 WBC 5.4 (4.3-11.1) K/mcL Hgb 9.1 L (11.5-15.4) g/dL Hct 30.7 L (35.3-44.9) % Plt Count 315 (140-400) K/mcL Neutrophils # 3.6 (1.6-8.9) K/mcL BMP 04/20/18 03:45 Sodium 130 L Potassium 3.4 L Chloride 100 Carbon Dioxide 19 L BUN 6 L Creatinine 0.37 L Glucose 85 Calcium 8.3 L - ABG Interpretation ABG results: PT/INR, D-dimer PT 13.5 Seconds (9.4-12.1) H 04/15/18 19:51 Consult Discharge Plan - Plan Additional Instructions: Full liquid vs pureed diet to help decrease risk for obstruction. Diet per dietitian's recommendations. Patient should also consume 3 high-protein supplements daily. Home with hospice, further medication and continued care per hospitalist recommendations. No surgical follow-up is needed. If the patient begins having vomiting at home or increased abdominal pain and she would like to pursue a palliative surgical procedure she could schedule a follow-up with Dr. Loving as an outpatient. Referrals: Lizz Ariza CNP [Primary Care Provider] - Sandeep Singh Jr, MD [Family Provider] - (3) Hypertension Qualifiers: Hypertension type: essential hypertension Qualified Code(s): I10 - Essential (primary) hypertension (4) Anemia Qualifiers: Anemia type: iron deficiency Iron deficiency anemia type: chronic blood loss Qualified Code(s): D50.0 - Iron deficiency anemia secondary to blood loss ( chronic)
--- NOTE | 2018-04-20 14:42 | Anesthesia Evaluation PreOp ---
Date of Encounter: 04/20/18 Time of Encounter: 14:40 - Past History Planned Operation: Exp. Lap. Cardiac History: HTN, Other (anemia) Pulmonary History: Denies Any Significant HX TENTERER History: Denies Any Significant HX Other Medical History: Denies Any Significant HX, GERD, Other (obstructing right colon mass with associated peritoneal carcinomatosis with multiple intra- abdominal lesions, Small bowel obstruction) Anesthesia History: No Prior Anesthetic Complications, Past Anesthesia ( Hysterectomy, tubal ligation) : No Alcohol Use: none Drug use: none Medications and Allergies Loratadine [Claritin] 10 mg PO DAILY 04/15/18 [History] Ranitidine HCl [Acid Grounds Foreman] 75 mg PO DAILY PRN 04/15/18 [History] 3 Allergy/AdvReac Type Severity Reaction Status Date / Time No Known Allergies Allergy Verified 04/15/18 19:53 - Meds/Allergy Pre-op Review Medications Reviewed: Yes Allergies Reviewed: Yes Beta Blockers on Current Med List: No Anesthesia Results - Labs 04/20/18 03:45 04/20/18 03:45 - Imaging EKG: report reviewed (Sinus tachycardia Anteroseptal infarct, old Nonspecific ST -T changes) Anesthesia Exam O2 Sat Weight 59.4 kg O2 Sat by Pulse Oximetry 96 O2 Sat by Pulse Oximetry 96 O2 Sat by Pulse Oximetry 97 O2 Sat by Pulse Oximetry 95 O2 Sat by Pulse Oximetry 95 Vital Signs Temp Pulse Resp BP Pulse Ox 98 F 118 16 158/83 97 04/15/18 19:25 04/15/18 19:25 04/15/18 19:25 04/15/18 19:25 04/15/18 19:25 NPO (# of Hours): > 8 hrs Pain Scale: 0 Pain Scale Used: Numeric (1 - 10) - HEENT Pupil (Motor): Pupils equal, EOMI Mallampati: II Teeth: Normal Oral Opening: Greater than 3 - TENTERER LOC: Oriented TENTERER Motor: Normal RUE, Normal LUE, Normal RLE, Normal LLE, Normal Face TENTERER Sensory: Normal: RUE, LUE, RLE, LLE, Face - Cardiac Rhythm: Regular Murmur: None JVD: No Carotid Bruit: No - Pulmonary Breath Sounds: bilateral Clear Respiratory Effort: Symmetrical Anesthesia Assess/Plan ASA Score: 3 Modified Sisi Scale for Level of Consciousness: Cooperative, oriented, and tranquil Anesthetic Plan: General Autologous Blood: Yes Monitoring Plan: Standard Monitors Recovery Plan: PACU
[2018-04-20] MEDS ORDERED: *HR* Propofol 200 MG/20 ML VIAL IVP ONE ×2 (15:07→17:59)
[2018-04-20] MEDS ORDERED: *HR* FentaNYL (PF) 100 MCG/2 ML VIAL ONE ×2 (15:07→17:59)
[2018-04-20] MEDS ORDERED: Lidocaine -MPF 2% 2 ML VIAL ONE ×3 (15:08→17:59)
[2018-04-20] MEDS ORDERED: *HR* Rocuronium Bromide 50 MG/5 ML VIAL ONE ×2 (15:08→17:59)
[2018-04-20] MEDS ORDERED: Lidocaine -MPF 4% 5 ML AMPUL ONE ×2 (15:08→17:59)
[2018-04-20] MEDS ORDERED: Heparin 1,000 UNITS/500 mL 500 ML ONE (15:18)
[2018-04-20] MEDS ORDERED: CefOXitin 1,000 MG VIAL ONE (15:18)
[2018-04-20] MEDS ORDERED: Lidocaine/EPI 1:200k 1% PF 10 ML VIAL ONE (15:18)
[2018-04-20] MEDS ORDERED: cefOXitin 1,000 MG, Sodium Chloride IRRigation 1,000 ML IR ONE ×2 (15:30→19:52)
[2018-04-20] MEDS ORDERED: *HR* Labetalol 20 MG/4 ML SYRINGE IVP PRN ×2 (16:57→19:52)
[2018-04-20] MEDS ORDERED: *HR* Promethazine 25 MG/ML VIAL IVP PRN ×2 (16:57→19:52)
[2018-04-20] MEDS ORDERED: *HR* HYDROmorphone (PF) 1 MG/ML SYRINGE IVP PRN ×2 (16:57→19:52)
[2018-04-20] MEDS ORDERED: Ondansetron 4 MG/2 ML VIAL IVP ONE ×2 (16:57→19:52)
[2018-04-20] MEDS ORDERED: *HR* Meperidine 25 MG/ML SYRINGE IVP PRN ×2 (16:57→19:52)
[2018-04-20] MEDS ORDERED: Neostigmine Methylsulfate 3 MG/3 ML SYRINGE ONE (17:26)
[2018-04-20] MEDS ORDERED: Ondansetron 4 MG/2 ML VIAL ONE (17:27)
[2018-04-20] MEDS ORDERED: Bupivacaine/EPI 1:200k 0.5%PF 30 ML VIAL ONE (17:58)
[2018-04-20] MEDS ORDERED: *HR* Succinylcholine 200 MG/10 ML VIAL IVP ONE (17:59)
[2018-04-20] MEDS ORDERED: *HR* Midazolam HCl 2 MG/2 ML VIAL ONE (17:59)
--- NOTE | 2018-04-20 18:20 | Operative Note ---
Date of procedure: 04/20/18 Pre-op diagnosis: Metastatic intra-abdominal cancer with bowel obstruction Post-op diagnosis: same Procedure: #1. Ileocolonic anastomosis (palliative bypass) #2. Resection of omental mass. #3. Placement of access port Anesthesia: NICHOLAS Surgeon: Ammon Loving Was there an preschool assistant director present: Yes Radio Commentator: Niesha Díaz Estimated blood loss (cc): 20 Specimen: Omental mass Condition: stable Disposition: PACU Procedure in Detail: After informed consent the patients taking major operative suite placed supine position given adequate general endotracheal anesthesia. The left subclavian area was prepped and draped in sterile fashion utilizing ChloraPrep standard draping techniques. Timeout was taken patient was identified. I placed a Seldinger needle into the subclavian vein on first pass. Fluoroscopy demonstrated this symptoms. Vena cava. The access port was placed into the subcutaneous pocket. Then used fluoroscopy to cut the catheter to length. I intended for the catheter to going to the superior vena cava, however, the catheter went to the junction between the superior vena cava and axillary vein. I placed a trocar peel-away sheath mechanism over the wire and then passed the catheter into the superior vena cava. The length was about 2 cm shorter than I would normally like, however, the catheter flushed and aspirated normally. And I decided to keep this placement. The patient tolerated this well. I irrigated with copious amounts of antibiotic containing solution. The skin was closed with interrupted 2-0 Vicryl and running 4-0 Vicryl. The catheter and access port was flushed first with dilute heparin at 2 units per cc and then a final flush of 500 units of heparin per 5 mL. Attention was turned to the abdomen. I made a midline laparotomy. The patient had malignant ascites. This was suctioned. There were some mild omental adhesions were divided. I made an exploration the abdomen. There are multiple peritoneal studs and a large mass on the right side of the root of the mesentery as well as the omentum. The omentum was amenable for resection and would provide pathologic diagnosis. The omental mass was resected clamps and hemostatic ligatures and sent for pathologic evaluation. Further exploration demonstrated that the right colon was very distended as was the distal ileum. The hepatic flexure was encased in tumor. I was unable to evaluate the liver because of this encasement right upper quadrant. This was the point of obstruction. I lysed the adhesions in the pelvis to mobilize the distal ileum. The distal ileum was then brought into approximation with the transverse colon. I performed a standard 2 layer [id number] anastomosis between the distal ileum and transverse colon using 2-0 silk seromuscular stitches and running 3-0 chromic mucosal stitch. This gave an excellent technical result in immediate decompression of the small bowel obstruction. The abdomen was irrigated with copious amounts of normal saline solution. Midline was closed with looped 0 PDS. The skin was closed with interrupted Vicryl and skin clips. She tolerated the procedure well. Case class was 3. Intent of operation was palliative
[2018-04-20] MEDS ORDERED: Lidocaine -MPF 1% 2 ML VIAL ID PRN (19:52)
[2018-04-20] MEDS ORDERED: *HR* LORazepam Oral Conc 2 MG/ML SL PRN (19:52)
[2018-04-20] MEDS ORDERED: MORPHINE SUL Oral CONC 10 MG/0.5 ML ORAL.SYG SL PRN (19:52)
[2018-04-20] MEDS ORDERED: Ondansetron 4 MG/2 ML VIAL IVP PRN (19:52)
[2018-04-20] MEDS: *HR* OxyCODONE/APAP 10/325 TABLET PO PRN (21:45)
[2018-04-21 03:28] LABS: Basophils % 0.1 %; Hematocrit 32.2 % (35.3-44.9); Hemoglobin 9.5 g/dL (11.5-15.4); Immature Granulocytes % 0.7 % (0-4); Lymphocytes # 0.6 K/mcL (0.6-4.6); Mean Corpuscular HGB Conc 29.5 g/dL (31.6-35.5); Mean Corpuscular Hemoglobin 18.5 pg (28.0-33.3); Mean Corpuscular Volume 62.6 fL (83.0-100.0); Mean Platelet Volume 9.4 fL (9.4-12.4); Monocytes # 0.7 K/mcL (0.0-1.3); Monocytes % 4.9 %; Platelet Count 327 K/mcL (140-400); Red Blood Count 5.14 M/mcL (3.82-4.97); Segmented Neutrophils % 90.3 %
[2018-04-21 03:32] LABS: Neutrophils # 13.5 K/mcL (1.6-8.9)
[2018-04-21 03:43] LABS: BUN/Creatinine Ratio 18 (6-26); Blood Urea Nitrogen 8 mg/dL (8-23); Calcium 8.2 mg/dL (8.6-10.3); Carbon Dioxide 18 mEq/L (23-29); Chloride 102 mEq/L (98-107); Glucose 85 mg/dL (70-105); Magnesium 1.6 mg/dL (1.6-2.6); Osmolality,Calculated 270 (280-300); Phosphorous 3.6 mg/dL (2.7-4.5); Potassium 3.6 mEq/L (3.5-5.1); Sodium 131 mEq/L (136-145); eGFR For Non-African Americans > 60 (> 60)
[2018-04-21] MEDS: *HR* Heparin 5,000 UNIT/ML VIAL SQ SCH ×3 (04:57→23:01)
[2018-04-21] MEDS: Pantoprazole 40 MG VIAL IVP SCH ×2 (04:57→17:53)
[2018-04-21] MEDS: *HR* OxyCODONE/APAP 10/325 TABLET PO PRN ×2 (05:49→19:49)
[2018-04-21 06:50] LABS: Anisocytosis 1+ (Not Present); Platelet Estimate Normal (Normal)
[2018-04-21 06:51] LABS: Microcytosis Present (Not Present)
[2018-04-21] MEDS ORDERED: Ringers Solution, Lactated 500 ML IVC ONE (07:08)
--- NOTE | 2018-04-21 10:58 | Internal Med Progress Note ---
Hospitalist Progress Note - Encounter Date of Encounter: 04/21/18 Time of Encounter: 11:00 - Exam Vitals: Temp Pulse Resp BP Pulse Ox 97.5 F L 125 15 105/70 95 04/21/18 09:59 04/21/18 09:59 04/21/18 09:59 04/21/18 09:59 04/21/18 09:59 Exam: Gen: Vitals noted. No acute distress. HEENT: Normocephalic, atraumatic. Foul odor from breath Neck: Supple. No adenopathy. Cardiac: Regular rate and rhythm, rapid, no murmur, +S1/S2 Pulmonary: CTA bilaterally, no wheezes, rales or rhonchi, equal chest expansion Abdomen: soft, very mild tenderness to palpation, no guarding. There is a firmness in the right lower quadrant which is more significant than the rest of her abdomen. This is tender to palpation. Extremities: no BLE edema, nontender calf, no cyanosis or clubbing Neuro: moves all extremities, no focal deficits. A&Ox3 Psych: Appropriate mood and behavior - Assessment and Plan (1) Partial small bowel obstruction Current Visit: Yes Status: Acute Assessment and Plan: Likely secondary to colon mass. Surgery following and plan to monitor and introduce diet gradually and see if she tolerates 04/21- patient is post op day #1 s/p Ileocolonic anastomosis (palliative bypass) , Resection of omental mass and placement of access port Follow surgery recs (2) Colonic mass Current Visit: Yes Status: Acute Assessment and Plan: Colonic mass with apparent metastasis including peritoneal carcinomatosis, liver metastases, retroperitoneal lymph node association Demonstrated on CT of the abdomen and pelvis which was ordered by PCP Patient has had symptoms of obstruction associated with this, however it appears to be partial in nature Was seen by surgery who determined she likely has colon cancer with mets. Oncology consulted and recommend ileostomy and palliative chemotherapy possibly s/p ileostomy (3) Hyponatremia Current Visit: Yes Status: Acute Assessment and Plan: Hyponatremia, appears to be hypovolemic to euvolemic in nature Improved with IV fluids (4) Hypertension Current Visit: Yes Status: Chronic Assessment and Plan: Continue home meds. Monitor BP (5) Anemia Current Visit: Yes Status: Acute Assessment and Plan: Anemia, microcytic anemia from GI malignancy. Monitor CBC Transfuse for hemoglobin less than 7 (6) DVT prophylaxis Current Visit: Yes Status: Acute Assessment and Plan: Subcutaneous heparin - Time Spent with Patient Total time spent is greater than 50% in coordination of care (as documented) at patient's floor/unit and/or counseling patient: Internal Medicine: Result - Labs CBC & Chem 7: 04/21/18 03:15 04/21/18 03:15 Labs: Short CBC 04/21/18 Range/Units 03:15 WBC 14.9 H D (4.3-11.1) K/mcL Hgb 9.5 L (11.5-15.4) g/dL Hct 32.2 L (35.3-44.9) % Plt Count 327 (140-400) K/mcL Neutrophils # 13.5 H (1.6-8.9) K/mcL BMP 04/21/18 03:15 Sodium 131 L Potassium 3.6 Chloride 102 Carbon Dioxide 18 L BUN 8 Creatinine 0.44 L Glucose 85 Calcium 8.2 L - ABG Interpretation ABG results: PT/INR, D-dimer PT 13.5 Seconds (9.4-12.1) H 04/15/18 19:51 - Impressions Impressions Chest X-Ray 04/20/18 00:00 IMPRESSION: 1. A left subclavian Port-A-Cath has its tip in the superior vena cava. No pneumothorax. 2. Small bowel dilatation, consistent with small bowel obstruction. D/ /20/2018 20:54:32 Oscar Cervantes MD / kaitlin Interpreting Provider: Oscar Cervantes MD Fluoroscopy 04/20/18 16:52 IMPRESSION: 1. A left subclavian Port-A-Cath has its tip in the superior vena cava. No pneumothorax. 2. Small bowel dilatation, consistent with small bowel obstruction. D/ /20/2018 20:54:32 Oscar Cervantes MD / kaitlin Interpreting Provider: Oscar Cervantes MD Consult Discharge Plan - Plan Additional Instructions: Full liquid vs pureed diet to help decrease risk for obstruction. Diet per dietitian's recommendations. Patient should also consume 3 high-protein supplements daily. Home with hospice, further medication and continued care per hospitalist recommendations. No surgical follow-up is needed. If the patient begins having vomiting at home or increased abdominal pain and she would like to pursue a palliative surgical procedure she could schedule a follow-up with Dr. Loving as an outpatient. Referrals: Lizz Ariza CNP [Primary Care Provider] - Sandeep Singh Jr, MD [Family Provider] - (4) Hypertension Qualifiers: Hypertension type: essential hypertension Qualified Code(s): I10 - Essential (primary) hypertension (5) Anemia Qualifiers: Anemia type: iron deficiency Iron deficiency anemia type: chronic blood loss Qualified Code(s): D50.0 - Iron deficiency anemia secondary to blood loss ( chronic)
--- NOTE | 2018-04-21 15:56 | General Surgery Progress Note ---
Date of Encounter: 04/21/18 Time of Encounter: 07:10 - Assessment and Plan (1) Colon cancer metastasized to multiple sites Current Visit: Yes Status: Acute The patient is seen and evaluated with the medical student in the resident. Care plan as outlined. We will continue to follow along with our hospitalist colleagues to maximize her outcomes Ammon Loving MD FACS 04/21/2018 the patient is postoperative day 1 from ileocolonic bypass for metastatic colon cancer with colon obstruction. She is doing quite well with excellent pain control. We will await bowel function. Supportive care. The patient did have tachycardia during the postoperative period however, this appears to have been present preoperatively and may be in response to her tumor burden. I have recommended starting beta flaca Subjective Narrative: The patient is seen and evaluated on morning rounds. It is noted that she is tachycardic with a heart rate of 122. Looking back at her records, however, she has been persistently tachycardic with heart rates over 100. This may be in response to her tumor burden and tumor necrosis factor. Her urinary off is good. She will be bolused 500 mL of lactated Ringer's I think is appropriate to start her on beta flaca. The patient complains of very little pain midline wound is intact. She has not had any flatus yet she is not having any difficulty breathing I am very pleased with the palliative bypass results. Objective Vital Signs - Last 8 Hours Temp Pulse Resp BP Pulse Ox 04/21/18 14:27 97.6 F 125 15 112/73 96 04/21/18 12:22 98.0 F 117 15 114/74 96 04/21/18 09:59 97.5 F L 125 15 105/70 95 04/21/18 08:20 125 123/78 Intake and Output 04/20/18 04/21/18 04/21/18 23:59 07:59 15:59 Intake Total 0 / 0 1061 / 1061 Output Total 20 / 20 100 / 100 0 / 0 Balance -20 / -20 -100 / -100 1061 / 1061 Intake: IV Fluids 821 / 821 0.9 % Sodium Chloride 1,000 ML 821 / 821 @ 100 mls/hr IVC .Q10H [facility] Rx#: [id number] Oral 0 / 0 240 / 240 Output: Urine 100 / 100 0 / 0 Estimated Blood Loss 20 / 20 Other: Meal NPO Breakfast Clear # Bowel Movements 0 0 Weight 61.3 kg Blood Glucose* 94 Patient Weight 04/21/18 23:59 Weight 61.3 kg - General physical appearance chronically ill, other (Pale, frail, tachycardic) - Respiratory normal expansion, normal respiratory effort, clear to percussion, clear to auscultation - Cardiovascular Cardiovascular exam: Present: RRR, tachycardia, regular rhythm, no murmurs/rubs/ gallops - Abdomen Abdomen: Present: bowel sounds present (Few bowel sounds incision is intact) - Neurologic normal coordination, normal sensation - Psychiatric oriented to time, oriented to person, oriented to place, speech is normal, memory intact - Labs 04/21/18 03:15 04/21/18 03:15 Diabetes panel 04/21/18 Range/Units 03:15 Sodium 131 L (136-145) mEq/L Potassium 3.6 (3.5-5.1) mEq/L Chloride 102 (98-107) mEq/L Carbon Dioxide 18 L (23-29) mEq/L BUN 8 (8-23) mg/dL Creatinine 0.44 L (0.60-1.20) mg/dL Glucose 85 (70-105) mg/dL Calcium 8.2 L (8.6-10.3) mg/dL Calcium panel 04/21/18 Range/Units 03:15 Calcium 8.2 L (8.6-10.3) mg/dL Phosphorus 3.6 (2.7-4.5) mg/dL Pituitary panel 04/21/18 Range/Units 03:15 Sodium 131 L (136-145) mEq/L Potassium 3.6 (3.5-5.1) mEq/L Chloride 102 (98-107) mEq/L Carbon Dioxide 18 L (23-29) mEq/L BUN 8 (8-23) mg/dL Creatinine 0.44 L (0.60-1.20) mg/dL Glucose 85 (70-105) mg/dL Calcium 8.2 L (8.6-10.3) mg/dL Adrenal panel 04/21/18 Range/Units 03:15 Sodium 131 L (136-145) mEq/L Potassium 3.6 (3.5-5.1) mEq/L Chloride 102 (98-107) mEq/L Carbon Dioxide 18 L (23-29) mEq/L BUN 8 (8-23) mg/dL Creatinine 0.44 L (0.60-1.20) mg/dL Glucose 85 (70-105) mg/dL Calcium 8.2 L (8.6-10.3) mg/dL Consult Discharge Plan - Plan Additional Instructions: Full liquid vs pureed diet to help decrease risk for obstruction. Diet per dietitian's recommendations. Patient should also consume 3 high-protein supplements daily. Home with hospice, further medication and continued care per hospitalist recommendations. No surgical follow-up is needed. If the patient begins having vomiting at home or increased abdominal pain and she would like to pursue a palliative surgical procedure she could schedule a follow-up with Dr. Loving as an outpatient. Referrals: Lizz Ariza CNP [Primary Care Provider] - Sandeep Singh Jr, MD [Family Provider] -
--- NOTE | 2018-04-21 16:53 | Oncology Inp Progress Note ---
<CarranzaMellisa L - Last Filed: 04/21/18 16:51> Date of Encounter: 04/21/18 Time of Encounter: 16:00 (1) Colon cancer metastasized to multiple sites Current Visit: Yes Status: Acute Assessment and plan: POD#1 from ileocolonic bypass, omental mass resection and mediport placement. Ms. Mayo is feeling as expected today. She has been up to the chair and tolerating clear liquids. We are awaiting bowel return. She continues to receive supportive treatment. Ms. Mayo continues to desires adjuvant systemic treatment with the goal to prolong her life. Given her robust performance status, she would be a good candidate for therapy with the hopes that she would respond well to treatment now following her bypass. This was discussed with the patient and family again today. Further detailed discussion on treatment options to follow once final pathology is received. Tissue also be sent for molecular analysis. Follow up with Dr. Pedroza will be arranged. Oncology: Subj Interval history: Ms. Mayo is recovering as expected. We continue to await bowel function, she has yet to have a bowel movement or pass gas. She is tolerating a clear liquid diet well. Her pain is controlled. She has been up to the chair for a few hours today. - Constitutional Vitals: Vital Signs Temp Pulse Resp BP Pulse Ox 04/21/18 14:27 97.6 F 125 15 112/73 96 04/21/18 12:22 98.0 F 117 15 114/74 96 04/21/18 09:59 97.5 F L 125 15 105/70 95 04/21/18 08:20 125 123/78 04/21/18 05:26 97.7 F 122 15 124/78 95 04/21/18 00:41 97.5 F L 115 14 104/64 96 04/20/18 21:35 97.7 F 120 18 116/70 04/20/18 20:33 97.7 F 106 16 124/70 95 04/20/18 20:00 97.5 F L 97 16 113/67 93 04/20/18 19:00 97.6 F 95 18 157/87 95 04/20/18 18:48 97.4 F L 96 18 152/80 95 04/20/18 18:38 97 18 152/79 95 04/20/18 18:26 101 18 156/87 95 04/20/18 18:16 97.9 F 104 20 153/70 95 Intake and Output 04/21/18 04/21/18 04/21/18 07:59 15:59 23:59 Intake Total 0 / 0 1061 / 1061 Output Total 100 / 100 0 / 0 Balance -100 / -100 1061 / 1061 Intake: IV Fluids 821 / 821 0.9 % Sodium Chloride 1,000 ML 821 / 821 @ 100 mls/hr IVC .Q10H [facility] Rx#: [id number] Oral 0 / 0 240 / 240 Output: Urine 100 / 100 0 / 0 Other: Meal Breakfast Clear # Bowel Movements 0 0 Weight 61.3 kg Blood Glucose* 94 Patient Weight 04/21/18 23:59 Weight 61.3 kg General appearance: cooperative, no acute distress, no febrile - Head Head exam: Present: atraumatic - ENT ENT exam: Present: mucous membranes moist - Respiratory Respiratory exam: Present: CTAB. Absent: respiratory distress - Cardiovascular Cardiovascular exam: Present: RRR, +S1, +S2, tachycardia - GI/Abdominal GI/Abdominal exam: Present: hypoactive bowel sounds, soft Additional comments: post op tenderness as expected, midline dressing dry and intact with minimal dried blood noted under dressing - Extremities Exam Extremities exam: Absent: calf tenderness - Neurological Exam Neurological exam: Present: alert, oriented X3, no focal deficits, strengths equal and symetr throughout - Psychiatric Psychiatric exam: Present: normal affect, normal mood - Skin Skin exam: Present: dry, intact, normal color, warm Additional comments: abdominal dressing as above, right chest mediport incision FACING BASTER and healing well Oncology: Obj Data - Labs CBC & Chem 7: 04/21/18 03:15 04/21/18 03:15 - Impressions Impressions Chest X-Ray 04/20/18 00:00 IMPRESSION: 1. A left subclavian Port-A-Cath has its tip in the superior vena cava. No pneumothorax. 2. Small bowel dilatation, consistent with small bowel obstruction. D/ / 04/20/2018 20:54:32 Oscar Cervantes MD / kaitlin Interpreting Provider: Oscar Cervantes MD Fluoroscopy 04/20/18 16:52 IMPRESSION: 1. A left subclavian Port-A-Cath has its tip in the superior vena cava. No pneumothorax. 2. Small bowel dilatation, consistent with small bowel obstruction. D/ / 04/20/2018 20:54:32 Oscar Cervantes MD / kaitlin Interpreting Provider: Oscar Cervantes MD - ABG Interpretation ABG results: PT/INR, D-dimer PT 13.5 Seconds (9.4-12.1) H 04/15/18 19:51 Consult Discharge Plan - Plan Referrals: Lizz Ariza CNP [Primary Care Provider] - Sandeep Singh Jr, MD [Family Provider] - Inpatient Charges Provider: Dr. Delilah Pedroza <Luisito Pedroza - Last Filed: 04/24/18 17:59> Date of Encounter: 04/24/18 (1) Colonic mass Current Visit: Yes Status: Acute (2) Anemia Current Visit: Yes Status: Acute Qualifiers: Anemia type: iron deficiency Iron deficiency anemia type: chronic blood loss Qualified Code(s): D50.0 - Iron deficiency anemia secondary to blood loss (chronic) - Constitutional Vitals: Vital Signs Temp Pulse Resp BP Pulse Ox 04/24/18 16:36 97.9 F 89 16 159/77 94 04/24/18 12:16 97.5 F L 87 14 109/73 95 04/24/18 09:06 95 04/24/18 07:49 97.5 F L 91 16 115/80 95 04/24/18 03:30 97.9 F 92 16 119/74 93 04/23/18 22:04 97.8 F 91 04/23/18 21:56 92 04/23/18 19:19 99.7 F H 104 15 114/74 92 Intake and Output 04/24/18 04/24/18 04/25/18 08:59 16:59 00:59 Intake Total 1000 / 1000 950 / 950 Output Total 500 / 500 100 / 100 Balance 500 / 500 850 / 850 Intake: IV Fluids 1000 / 1000 Oral 0 / 0 950 / 950 Output: Urine 500 / 500 100 / 100 Other: Meal Lunch Percent of Meal Consumed 15% # Voids 2 Weight 59.6 kg Patient Weight 04/25/18 00:59 Weight 59.6 kg Oncology: Obj Data - Labs CBC & Chem 7: 04/24/18 03:15 04/24/18 03:15 Labs: Laboratory Results - last 24 hr 04/24/18 04/24/18 03:15 03:15 WBC 10.3 RBC 4.61 Hgb 8.7 L Hct 28.8 L MCV 62.5 L MCH 18.9 L MCHC 30.2 L RDW 25.3 H Plt Count 293 MPV 9.2 L Immature Gran % 1.0 Seg Neutrophils % 77.7 Lymphocytes % 12.1 Monocytes % 8.7 Eosinophils % 0.4 Basophils % 0.1 Neutrophils # 8.0 Lymphocytes # 1.3 Monocytes # 0.9 Eosinophils # 0.0 Basophils # 0.0 Platelet Estimate Normal Poikilocytosis 1+ A Anisocytosis 1+ A Microcytosis Present A Sodium 133 L Potassium 3.9 Chloride 106 Carbon Dioxide 22 L BUN 17 Creatinine 0.41 L Est GFR ( Amer) > 60 Est GFR (Non-Af Amer) > 60 BUN/Creatinine Ratio 41 H Glucose 103 Calculated Osmolality 278 L Calcium 8.3 L Phosphorus 3.0 Magnesium 1.8 - ABG Interpretation ABG results: PT/INR, D-dimer PT 13.5 Seconds (9.4-12.1) H 04/15/18 19:51 Inpatient Charges Provider: Dr. Delilah Pedroza Follow up - Inpatient: [id number] - Attending Attestation I examined this patient and my medical decision-making was reviewed with the Advanced Practice Nurse. I agree with the documented findings, disposition and treatment plan as described except to the extent set forth below. She is s/p diversion yesterday. Tolerating clears. Abdominal pain from surgery. No new c /o today. Discussed next steps in her care including pathologic review of her cancer as well as expectations moving forward. Will establish f/u in my office this coming week to further develop plan. Will otherwise sign off.
[2018-04-21] MEDS: 0.9 % Sodium Chloride 1,000 ML IVC SCH (17:54)
[2018-04-22] MEDS: 0.9 % Sodium Chloride 1,000 ML IVC SCH ×3 (03:13→13:24)
[2018-04-22 04:37] LABS: Basophils % 0.1 %; Monocytes % 7.9 %
[2018-04-22 04:39] LABS: Eosinophils % 0.1 %; Hematocrit 28.9 % (35.3-44.9); Hemoglobin 8.4 g/dL (11.5-15.4); Immature Granulocytes % 0.7 % (0-4); Immature Platelets 2.7 % (1.1-6.1); Lymphocytes # 0.9 K/mcL (0.6-4.6); Lymphocytes % 6.1 %; Mean Corpuscular HGB Conc 29.1 g/dL (31.6-35.5); Mean Corpuscular Hemoglobin 18.2 pg (28.0-33.3); Mean Corpuscular Volume 62.6 fL (83.0-100.0); Mean Platelet Volume 10.1 fL (9.4-12.4); Monocytes # 1.2 K/mcL (0.0-1.3); Neutrophils # 13.1 K/mcL (1.6-8.9); Platelet Count 297 K/mcL (140-400); Red Blood Count 4.62 M/mcL (3.82-4.97); Red Cell Distribution Width 23.8 % (11.5-14.5); Segmented Neutrophils % 85.1 %
[2018-04-22 05:17] LABS: Anisocytosis 2+ (Not Present); Hypochromasia Present (Not Present); Macrocytosis Present (Not Present); Microcytosis Present (Not Present); Ovalocytes 1+ (Not Present); Poikilocytosis 2+ (Not Present); Polychromasia 1+ (Not Present); Tear Drop Cells 1+ (Not Present)
[2018-04-22 05:18] LABS: Acanthocytes 1+ (Not Present); Platelet Estimate Normal (Normal)
[2018-04-22] MEDS: *HR* Heparin 5,000 UNIT/ML VIAL SQ SCH ×3 (05:31→21:36)
[2018-04-22] MEDS: Pantoprazole 40 MG VIAL IVP SCH ×2 (05:32→17:20)
[2018-04-22] MEDS: *HR* OxyCODONE/APAP 10/325 TABLET PO PRN ×2 (05:47→17:32)
[2018-04-22 05:49] LABS: BUN/Creatinine Ratio 33 (6-26); Blood Urea Nitrogen 17 mg/dL (8-23); Calcium 8.5 mg/dL (8.6-10.3); Carbon Dioxide 20 mEq/L (23-29); Chloride 104 mEq/L (98-107); Glucose 94 mg/dL (70-105); Magnesium 1.8 mg/dL (1.6-2.6); Osmolality,Calculated 275 (280-300); Phosphorous 2.7 mg/dL (2.7-4.5); Potassium 3.5 mEq/L (3.5-5.1); Sodium 132 mEq/L (136-145); eGFR For Non-African Americans > 60 (> 60)
--- NOTE | 2018-04-22 08:44 | General Surgery Progress Note ---
<Salty Rausch P - Last Filed: 04/22/18 08:41> Date of Encounter: 04/22/18 Time of Encounter: 08:30 - Assessment and Plan (1) Colon cancer metastasized to multiple sites Current Visit: Yes Status: Acute POD #2 from ileocolonic bypass for metastatic colon cancer w/ colon obstruction. Patient reporting mild abdominal pain and tenderness which is expected following surgery. Pain medication is appropriate to reduce her abdominal pain. Patient continues to have tachycardia and had tachycardia pre- operatively. Appropriate to continue a beta-flaca to treat the tachycardia. Waiting for patient to have bowel movements. Plan: -continue IV fluids -continue beta flaca for tachycardia -supportive care and pain management; okay to take pain medication for abdominal pain prn -continue clear liquid diet, advance diet as tolerated per patients wishes -okay to ambulate as tolerated (2) Anemia due to GI blood loss Current Visit: Yes Status: Acute Hemoglobin down from 9.5 yesterday to 8.4 today. Would appreciate recommendations for treatment from Heme/Onc who is following patient. Subjective Patient reports: no new complaints, pain is less, voiding w/o difficulty, no flatus, no bowel movement, afebrile Objective Vital Signs - Last 8 Hours Temp Pulse Resp BP Pulse Ox 04/22/18 07:53 98.0 F 118 20 109/71 96 04/22/18 02:53 97.5 F L 113 15 125/75 96 Intake and Output 04/21/18 04/22/18 04/22/18 23:59 07:59 15:59 Intake Total 179 / 179 935 / 935 Output Total 300 / 300 Balance 179 / 179 635 / 635 Intake: IV Fluids 179 / 179 935 / 935 0.9 % Sodium Chloride 1,000 ML 179 / 179 935 / 935 @ 100 mls/hr IVC .Q10H [facility] Rx#: [id number] Oral 0 / 0 0 / 0 Output: Urine 300 / 300 Other: # Voids 1 # Bowel Movements 0 0 Weight 60.1 kg Patient Weight 04/22/18 23:59 Weight 60.1 kg - General physical appearance cachectic - Neck Neck exam: trachea midline - Respiratory clear to auscultation - Cardiovascular Cardiovascular exam: Present: tachycardia - Abdomen Abdomen: Present: bowel sounds present, tender - Incision Incision: Present: clean and dry - Musculoskeletal normal gait, normal posture - Psychiatric oriented to time, oriented to person, oriented to place, speech is normal - Labs 04/22/18 04:00 04/22/18 04:00 Diabetes panel 04/22/18 Range/Units 04:00 Sodium 132 L (136-145) mEq/L Potassium 3.5 (3.5-5.1) mEq/L Chloride 104 (98-107) mEq/L Carbon Dioxide 20 L (23-29) mEq/L BUN 17 (8-23) mg/dL Creatinine 0.51 L (0.60-1.20) mg/dL Glucose 94 (70-105) mg/dL Calcium 8.5 L (8.6-10.3) mg/dL Calcium panel 04/22/18 Range/Units 04:00 Calcium 8.5 L (8.6-10.3) mg/dL Phosphorus 2.7 (2.7-4.5) mg/dL Pituitary panel 04/22/18 Range/Units 04:00 Sodium 132 L (136-145) mEq/L Potassium 3.5 (3.5-5.1) mEq/L Chloride 104 (98-107) mEq/L Carbon Dioxide 20 L (23-29) mEq/L BUN 17 (8-23) mg/dL Creatinine 0.51 L (0.60-1.20) mg/dL Glucose 94 (70-105) mg/dL Calcium 8.5 L (8.6-10.3) mg/dL Adrenal panel 04/22/18 Range/Units 04:00 Sodium 132 L (136-145) mEq/L Potassium 3.5 (3.5-5.1) mEq/L Chloride 104 (98-107) mEq/L Carbon Dioxide 20 L (23-29) mEq/L BUN 17 (8-23) mg/dL Creatinine 0.51 L (0.60-1.20) mg/dL Glucose 94 (70-105) mg/dL Calcium 8.5 L (8.6-10.3) mg/dL Consult Discharge Plan - Plan Referrals: Lizz Ariza CNP [Primary Care Provider] - Sandeep Singh Jr, MD [Family Provider] - Luisito Pedroza MD [Partnered Physician] - 05/04/18 9:00 am <Fabienne,Ammon T - Last Filed: 04/26/18 14:20> Date of Encounter: 04/22/18 - Assessment and Plan (1) Colon cancer metastasized to multiple sites Current Visit: Yes Status: Acute Objective Vital Signs - Last 8 Hours Temp Pulse Resp BP Pulse Ox 04/26/18 11:38 98.2 F 110 15 93 04/26/18 08:04 97.5 F L 106 18 106/62 91 Intake and Output 04/25/18 04/26/18 04/26/18 23:59 07:59 15:59 Intake Total 0 / 0 240 / 240 120 / 120 Output Total 300 / 300 50 / 50 Balance 0 / 0 -60 / -60 70 / 70 Intake: Oral 0 / 0 240 / 240 120 / 120 Output: Urine 300 / 300 50 / 50 Other: Meal KEEP Breakfast Percent of Meal Consumed 0% 5% Stool Size Moderate Stool Consistency loose soft Stool Color Brown # Bowel Movements 0 Weight 59.1 kg Patient Weight 04/26/18 23:59 Weight 59.1 kg - Labs 04/24/18 03:15 04/24/18 03:15 - Attending Attestation I examined this patient and my medical decision-making was reviewed with the Resident Physician. I agree with the documented findings, disposition and treatment plan as described except to the extent set forth below. The patient is seen and evaluated on morning rounds with the resident and the medical student in the findings discussed with the clinical nurse practitioner She continues to have some abdominal bloating. She is having very little midline abdominal pain. Continue supportive care and IV hydration Ammon Loving MD FACS
[2018-04-22] MEDS ORDERED: Potassium Chloride Elixir 20 MEQ/15 ML UDC PO ONE (16:22)
[2018-04-22] MEDS ORDERED: Thiamine (B-1) 100 MG in D5% in Water 50 ML IVPB STA (16:25)
[2018-04-22] MEDS ORDERED: Iron Sucrose Complex 200 MG in 0.9 % Sodium Chloride 100 ML IVPB ONE (16:30)
--- NOTE | 2018-04-22 16:34 | Internal Med Progress Note ---
Hospitalist Progress Note - Encounter Date of Encounter: 04/22/18 Time of Encounter: 14:00 - Subjective Interval History: Patient is complaining of generalized fatigue tiredness, patient denies any chest pain or shortness of breath, patient is complaining of lower extremity edema. Patient is tolerating clear liquid diet - Exam Vitals: Temp Pulse Resp BP Pulse Ox 98.0 F 93 14 115/72 95 04/22/18 14:29 04/22/18 14:29 04/22/18 14:29 04/22/18 14:29 04/22/18 14:29 Exam: Gen: Vitals noted. No acute distress. HEENT: Normocephalic, atraumatic. Foul odor from breath Neck: Supple. No adenopathy. Cardiac: Regular rate and rhythm, no murmur, +S1/S2 Pulmonary: no wheezes, rhonchi bilateral lung bases, equal chest expansion Abdomen: soft, bowel sound is positive Extremities: +2 lower extremity, nontender calf, no cyanosis or clubbing Neuro: moves all extremities, no focal deficits. A&Ox3 Psych: Appropriate mood and behavior - Assessment and Plan (1) Colonic mass Current Visit: Yes Status: Acute (2) DVT prophylaxis Current Visit: Yes Status: Acute (3) Partial small bowel obstruction Current Visit: Yes Status: Acute (4) Iron deficiency anemia due to chronic blood loss Current Visit: Yes Status: Acute (5) Moderate protein-calorie malnutrition Current Visit: Yes Status: Acute (6) Sinus tachycardia Current Visit: Yes Status: Acute - Summary of Assessment and Plan Summary of Assessment and Plan: Will replace potassium keep potassium more than 4 magnesium more than 2, with her lower extremity edema and chest congestion with cutback IV fluid, check chest x-ray next morning, with her iron deficiency anemia will add iron, poor nutritional status counseling about Ensure, dietitian consult. Ambulate as tolerated, we will check albumin , prealbumin and vitamin B12 - Time Spent with Patient Total time spent is greater than 50% in coordination of care (as documented) at patient's floor/unit and/or counseling patient: Greater than 35 minutes Internal Medicine: Result - Labs CBC & Chem 7: 04/22/18 04:00 04/22/18 04:00 Labs: Short CBC 04/22/18 Range/Units 04:00 WBC 15.4 H (4.3-11.1) K/mcL Hgb 8.4 L (11.5-15.4) g/dL Hct 28.9 L (35.3-44.9) % Plt Count 297 (140-400) K/mcL Neutrophils # 13.1 H (1.6-8.9) K/mcL BMP 04/22/18 04:00 Sodium 132 L Potassium 3.5 Chloride 104 Carbon Dioxide 20 L BUN 17 Creatinine 0.51 L Glucose 94 Calcium 8.5 L - ABG Interpretation ABG results: PT/INR, D-dimer PT 13.5 Seconds (9.4-12.1) H 04/15/18 19:51 - Impressions Impressions Chest X-Ray 04/20/18 00:00 IMPRESSION: 1. A left subclavian Port-A-Cath has its tip in the superior vena cava. No pneumothorax. 2. Small bowel dilatation, consistent with small bowel obstruction. D/ / 04/20/2018 20:54:32 Oscar Cervantes MD / kaitlin Interpreting Provider: Oscar Cervantes MD Fluoroscopy 04/20/18 16:52 IMPRESSION: 1. A left subclavian Port-A-Cath has its tip in the superior vena cava. No pneumothorax. 2. Small bowel dilatation, consistent with small bowel obstruction. D/ / 04/20/2018 20:54:32 Oscar Cervantes MD / kaitlin Interpreting Provider: Oscar Cervantes MD Consult Discharge Plan - Plan Additional Instructions: Full liquid vs pureed diet to help decrease risk for obstruction. Diet per dietitian's recommendations. Patient should also consume 3 high-protein supplements daily. Home with hospice, further medication and continued care per hospitalist recommendations. No surgical follow-up is needed. If the patient begins having vomiting at home or increased abdominal pain and she would like to pursue a palliative surgical procedure she could schedule a follow-up with Dr. Loving as an outpatient. Referrals: Lizz Ariza, L[employer] EQUIPMENT OPERATOR [Primary Care Provider] - Sandeep Singh Jr, MD [Family Provider] -
[2018-04-22] MEDS: D5% in 0.45% NACL w KCl 20 MEQ/1,000 ML MLS IVC SCH (17:32)
[2018-04-23] MEDS: *HR* OxyCODONE/APAP 10/325 TABLET PO PRN ×3 (03:46→19:52)
[2018-04-23 04:21] LABS: Basophils % 0.1 %; Eosinophils % 0.1 %; Immature Granulocytes % 0.6 % (0-4); Mean Corpuscular Volume 62.8 fL (83.0-100.0); Platelet Count 316 K/mcL (140-400)
[2018-04-23 04:24] LABS: Hematocrit 30.2 % (35.3-44.9); Hemoglobin 8.8 g/dL (11.5-15.4); Immature Platelets 3.3 % (1.1-6.1); Lymphocytes # 0.9 K/mcL (0.6-4.6); Lymphocytes % 5.1 %; Mean Corpuscular HGB Conc 29.1 g/dL (31.6-35.5); Mean Corpuscular Hemoglobin 18.3 pg (28.0-33.3); Mean Platelet Volume 9.9 fL (9.4-12.4); Monocytes # 0.8 K/mcL (0.0-1.3); Monocytes % 4.8 %; Red Blood Count 4.81 M/mcL (3.82-4.97); Red Cell Distribution Width 24.6 % (11.5-14.5); Segmented Neutrophils % 89.3 %
[2018-04-23 04:32] LABS: Neutrophils # 15.4 K/mcL (1.6-8.9)
[2018-04-23 04:58] LABS: Anisocytosis 2+ (Not Present); BUN/Creatinine Ratio 39 (6-26); Blood Urea Nitrogen 18 mg/dL (8-23); Carbon Dioxide 21 mEq/L (23-29); Chloride 104 mEq/L (98-107); Glucose 124 mg/dL (70-105); Hypochromasia Present (Not Present); Osmolality,Calculated 275 (280-300); Platelet Estimate Normal (Normal); Potassium 4.4 mEq/L (3.5-5.1); Sodium 131 mEq/L (136-145); eGFR For Non-African Americans > 60 (> 60)
[2018-04-23 04:59] LABS: Albumin 2.9 g/dL (3.5-5.7); Calcium 8.8 mg/dL (8.6-10.3); Folate 3.6 ng/mL (3.0-16.0); Magnesium 1.9 mg/dL (1.6-2.6); Phosphorous 1.2 mg/dL (2.7-4.5)
[2018-04-23] MEDS: *HR* Heparin 5,000 UNIT/ML VIAL SQ SCH ×3 (06:18→21:52)
[2018-04-23] MEDS: Pantoprazole 40 MG VIAL IVP SCH ×2 (06:19→17:29)
[2018-04-23] MEDS: Thiamine (B-1) 100 MG TABLET PO SCH (09:37)
--- NOTE | 2018-04-23 11:39 | General Surgery Progress Note ---
<Irene Spencer - Last Filed: 04/23/18 16:16> Date of Encounter: 04/23/18 Time of Encounter: 11:36 - Assessment and Plan (1) Colon cancer metastasized to multiple sites Current Visit: Yes Status: Acute POD #2 from ileocolonic bypass and omental mass resection for metastatic colon cancer, palliative surgery for colon obstruction due to mass. Awaiting return of bowel fuction -continue IV fluids -supportive care and pain management; we encourage patient to take pain medication for abdominal pain prn -continue clear liquid diet with ensure enlive tid, advance diet to fulls as tolerated per patients wishes -okay to ambulate as tolerated - pathology pending - appreciate Oncology's recommendations for adjuvant systemic treatment as out patient (2) Bowel obstruction Current Visit: Yes Status: Acute Qualifiers: Intestinal obstruction type: unspecified Intestinal obstruction extent: unspecified extent Qualified Code(s): K56.609 - Unspecified intestinal obstruction, unspecified as to partial versus complete obstruction (3) Anemia Current Visit: Yes Status: Acute HgB 8.8 from 8.4; improved - iron supplement per primary team Qualifiers: Anemia type: iron deficiency Iron deficiency anemia type: chronic blood loss Qualified Code(s): D50.0 - Iron deficiency anemia secondary to blood loss (chronic) (4) Moderate protein-calorie malnutrition Current Visit: Yes Status: Acute Nutrition consulted and previously suggested insure enlive tid; attempted protein cups but patient didn't enjoy Subjective Patient reports: no new complaints, still having pain (describes as achy worse on right), flatus, no bowel movement Objective Vital Signs - Last 8 Hours Temp Pulse Resp BP Pulse Ox 04/23/18 11:14 98.0 F 87 16 116/76 93 04/23/18 07:52 98.1 F 94 16 108/70 93 Intake and Output 04/22/18 04/23/18 04/23/18 23:59 07:59 15:59 Intake Total 456 / 456 0 / 0 50 / 50 Output Total 300 / 300 100 / 100 Balance 156 / 156 -100 / -100 50 / 50 Intake: IV Fluids 456 / 456 0.9 % Sodium Chloride 1,000 ML 295 / 295 @ 100 mls/hr IVC .Q10H [facility] Rx#: [id number] Venofer 200 MG In 0.9 % Sodium 110 / 110 Chloride 100 ML @ 200 mls/hr IVPB ONCE ONE Rx#:[id number] Vitamin B-1 100 MG In Dextrose 51 / 51 5% 50 ML @ 50 mls/hr IVPB NOW STA Rx#:[id number] Oral 0 / 0 0 / 0 50 / 50 Output: Urine 300 / 300 100 / 100 Other: Meal Breakfast Percent of Meal Consumed 0% Weight 59.8 kg Patient Weight 04/23/18 23:59 Weight 59.8 kg - General physical appearance well developed, no distress, chronically ill - Eyes normal ocular movement - ENT normal pinna, normal nares, normal mucosa - Respiratory normal expansion, normal respiratory effort, clear to auscultation - Cardiovascular Cardiovascular exam: Present: RRR, no murmurs/rubs/gallops - Abdomen Abdomen: Present: bowel sounds present (decreased), soft, distended Abdominal Tenderness: RUQ Hernia: none - Incision Incision: Present: clean and dry, approximated. Absent: red, swollen, inflamed - Integumentary no rash, no growths, no abnormal pigmentation - Neurologic CN 2-12 grossly intact, normal coordination, normal sensation - Musculoskeletal normal posture - Psychiatric oriented to time, oriented to person, oriented to place, speech is normal, memory intact - Labs 04/23/18 03:50 04/23/18 03:50 Diabetes panel 04/23/18 Range/Units 03:50 Sodium 131 L (136-145) mEq/L Potassium 4.4 D (3.5-5.1) mEq/L Chloride 104 (98-107) mEq/L Carbon Dioxide 21 L (23-29) mEq/L BUN 18 (8-23) mg/dL Creatinine 0.46 L (0.60-1.20) mg/dL Glucose 124 H (70-105) mg/dL Calcium 8.8 (8.6-10.3) mg/dL Albumin 2.9 L (3.5-5.7) g/dL Calcium panel 04/23/18 Range/Units 03:50 Calcium 8.8 (8.6-10.3) mg/dL Phosphorus 1.2 L (2.7-4.5) mg/dL Albumin 2.9 L (3.5-5.7) g/dL Pituitary panel 04/23/18 Range/Units 03:50 Sodium 131 L (136-145) mEq/L Potassium 4.4 D (3.5-5.1) mEq/L Chloride 104 (98-107) mEq/L Carbon Dioxide 21 L (23-29) mEq/L BUN 18 (8-23) mg/dL Creatinine 0.46 L (0.60-1.20) mg/dL Glucose 124 H (70-105) mg/dL Calcium 8.8 (8.6-10.3) mg/dL Adrenal panel 04/23/18 Range/Units 03:50 Sodium 131 L (136-145) mEq/L Potassium 4.4 D (3.5-5.1) mEq/L Chloride 104 (98-107) mEq/L Carbon Dioxide 21 L (23-29) mEq/L BUN 18 (8-23) mg/dL Creatinine 0.46 L (0.60-1.20) mg/dL Glucose 124 H (70-105) mg/dL Calcium 8.8 (8.6-10.3) mg/dL Albumin 2.9 L (3.5-5.7) g/dL - VTE Documentation of Mechanical Device: Intermittent pneumatic compression device Consult Discharge Plan - Plan Referrals: Lizz Ariza CNP [Primary Care Provider] - Sandeep Singh Jr, MD [Family Provider] - <Spenser Hsu - Last Filed: 04/24/18 06:49> Date of Encounter: 04/23/18 Objective Vital Signs - Last 8 Hours Temp Pulse Resp BP Pulse Ox 04/24/18 03:30 97.9 F 92 16 119/74 93 Intake and Output 04/23/18 04/23/18 04/24/18 15:59 23:59 07:59 Intake Total 1050 / 1050 260 / 260 0 / 0 Output Total 0 / 0 0 / 0 Balance 1050 / 1050 260 / 260 0 / 0 Intake: IV Fluids 1000 / 1000 260 / 260 KCl 20mEq IN D5%-0.45 NACL 20 1000 / 1000 meq In 1,000 ml @ 50 mls/hr IVC .Q20H [facility] Rx#:[id number] Sodium Phosphate 30 MMOL In 0.9 260 / 260 % Sodium Chloride 250 ML @ 42 mls/hr IVPB ONCE ONE Rx#: [id number] Oral 50 / 50 0 / 0 0 / 0 Output: Urine 0 / 0 0 / 0 Other: Meal Lunch Percent of Meal Consumed 30% Weight 59.6 kg Patient Weight 04/24/18 23:59 Weight 59.6 kg - Labs 04/24/18 03:15 04/24/18 03:15 Diabetes panel 04/24/18 Range/Units 03:15 Sodium 133 L (136-145) mEq/L Potassium 3.9 (3.5-5.1) mEq/L Chloride 106 (98-107) mEq/L Carbon Dioxide 22 L (23-29) mEq/L BUN 17 (8-23) mg/dL Creatinine 0.41 L (0.60-1.20) mg/dL Glucose 103 (70-105) mg/dL Calcium 8.3 L (8.6-10.3) mg/dL Calcium panel 04/24/18 Range/Units 03:15 Calcium 8.3 L (8.6-10.3) mg/dL Phosphorus 3.0 (2.7-4.5) mg/dL Pituitary panel 04/24/18 Range/Units 03:15 Sodium 133 L (136-145) mEq/L Potassium 3.9 (3.5-5.1) mEq/L Chloride 106 (98-107) mEq/L Carbon Dioxide 22 L (23-29) mEq/L BUN 17 (8-23) mg/dL Creatinine 0.41 L (0.60-1.20) mg/dL Glucose 103 (70-105) mg/dL Calcium 8.3 L (8.6-10.3) mg/dL Adrenal panel 04/24/18 Range/Units 03:15 Sodium 133 L (136-145) mEq/L Potassium 3.9 (3.5-5.1) mEq/L Chloride 106 (98-107) mEq/L Carbon Dioxide 22 L (23-29) mEq/L BUN 17 (8-23) mg/dL Creatinine 0.41 L (0.60-1.20) mg/dL Glucose 103 (70-105) mg/dL Calcium 8.3 L (8.6-10.3) mg/dL - Attending Attestation I examined this patient and my medical decision-making was reviewed with the Resident Physician. I agree with the documented findings, disposition and treatment plan as described except to the extent set forth below. I reviewed the above assessment and evaluation and agree with the above plan. Patient still little distended but positive flatus. No nausea or vomiting. Continue with clears today. Await return of bowel function.
[2018-04-23] MEDS ORDERED: Lactulose Oral Soln 20 GM/30 ML UDC PO ONE (13:22)
[2018-04-23] MEDS: D5% in 0.45% NACL w KCl 20 MEQ/1,000 ML MLS IVC SCH (13:32)
--- NOTE | 2018-04-23 13:32 | Internal Med Progress Note ---
Hospitalist Progress Note - Encounter Date of Encounter: 04/23/18 Time of Encounter: 13:00 - Subjective Interval History: Patient is complaining of mild abdominal discomfort, Patient stated she ate Oatmeal today , she is passing gas, no nausea or vomiting, no dysuria - Exam Vitals: Temp Pulse Resp BP Pulse Ox 98.0 F 87 16 116/76 93 04/23/18 11:14 04/23/18 11:14 04/23/18 11:14 04/23/18 11:14 04/23/18 11:14 Exam: Gen: Vitals noted. No acute distress. HEENT: Normocephalic, atraumatic. Neck: Supple. No adenopathy. Cardiac: Regular rate and rhythm, no murmur, +S1/S2 Pulmonary: no wheezes, equal chest expansion Abdomen: soft, bowel sound is positive, mild diffuse abdominal tenderness Extremities: +2 lower extremity, nontender calf, no cyanosis or clubbing Neuro: moves all extremities, no focal deficits. A&Ox3 Psych: Appropriate mood and behavior - Assessment and Plan (1) Colonic mass Current Visit: Yes Status: Acute (2) DVT prophylaxis Current Visit: Yes Status: Acute (3) Partial small bowel obstruction Current Visit: Yes Status: Acute (4) Iron deficiency anemia due to chronic blood loss Current Visit: Yes Status: Acute (5) Moderate protein-calorie malnutrition Current Visit: Yes Status: Acute (6) Sinus tachycardia Current Visit: Yes Status: Acute (7) Hypophosphatemia Current Visit: Yes Status: Acute - Summary of Assessment and Plan Summary of Assessment and Plan: With her anemia would add another dose of iron, persistent leukocytosis, discussed with surgery team possible secondary to iron, no evidence of infection. Close monitoring patient's vital signs, if any fever with order blood culture and CAT scan abdomen. Replace electrolytes, phosphorus infusion, discontinue IV fluid, encouraged oral nutrition. Need ECF on discharge. Possible discharge Wednesday awaiting surgery team input - Time Spent with Patient Total time spent is greater than 50% in coordination of care (as documented) at patient's floor/unit and/or counseling patient: 25 - 35 minutes Internal Medicine: Result - Labs CBC & Chem 7: 04/23/18 03:50 04/23/18 03:50 Labs: Short CBC 04/23/18 Range/Units 03:50 WBC 17.2 H (4.3-11.1) K/mcL Hgb 8.8 L (11.5-15.4) g/dL Hct 30.2 L (35.3-44.9) % Plt Count 316 (140-400) K/mcL Neutrophils # 15.4 H (1.6-8.9) K/mcL BMP 04/23/18 03:50 Sodium 131 L Potassium 4.4 D Chloride 104 Carbon Dioxide 21 L BUN 18 Creatinine 0.46 L Glucose 124 H Calcium 8.8 Liver Function 04/23/18 Range/Units 03:50 Albumin 2.9 L (3.5-5.7) g/dL - ABG Interpretation ABG results: PT/INR, D-dimer PT 13.5 Seconds (9.4-12.1) H 04/15/18 19:51 - Impressions Impressions Chest X-Ray 04/23/18 06:00 IMPRESSION: 1. Stable bibasilar atelectasis with small effusions. 2. Gas identified throughout the visualized bowel in the upper abdomen. D/ / 04/23/2018 07:44:25 Nicky Kraus MD / chano Interpreting Provider: Nicky Kraus MD - VTE Documentation of Mechanical Device: Intermittent pneumatic compression device Consult Discharge Plan - Plan Additional Instructions: Full liquid vs pureed diet to help decrease risk for obstruction. Diet per dietitian's recommendations. Patient should also consume 3 high-protein supplements daily. Home with hospice, further medication and continued care per hospitalist recommendations. No surgical follow-up is needed. If the patient begins having vomiting at home or increased abdominal pain and she would like to pursue a palliative surgical procedure she could schedule a follow-up with Dr. Lvoing as an outpatient. Referrals: Lizz Ariza CNP [Primary Care Provider] - Sandeep Singh Jr, MD [Family Provider] -
[2018-04-24 03:39] LABS: Basophils % 0.1 %; Eosinophils % 0.4 %; Hematocrit 28.8 % (35.3-44.9); Hemoglobin 8.7 g/dL (11.5-15.4); Lymphocytes % 12.1 %; Mean Corpuscular HGB Conc 30.2 g/dL (31.6-35.5); Mean Corpuscular Hemoglobin 18.9 pg (28.0-33.3); Mean Corpuscular Volume 62.5 fL (83.0-100.0); Mean Platelet Volume 9.2 fL (9.4-12.4); Monocytes # 0.9 K/mcL (0.0-1.3); Monocytes % 8.7 %; Platelet Count 293 K/mcL (140-400); Red Blood Count 4.61 M/mcL (3.82-4.97); Red Cell Distribution Width 25.3 % (11.5-14.5); Segmented Neutrophils % 77.7 %
[2018-04-24 03:42] LABS: Lymphocytes # 1.3 K/mcL (0.6-4.6)
[2018-04-24] MEDS: *HR* OxyCODONE/APAP 10/325 TABLET PO PRN ×2 (03:58→20:51)
[2018-04-24 04:12] LABS: Anisocytosis 1+ (Not Present); BUN/Creatinine Ratio 41 (6-26); Blood Urea Nitrogen 17 mg/dL (8-23); Calcium 8.3 mg/dL (8.6-10.3); Carbon Dioxide 22 mEq/L (23-29); Chloride 106 mEq/L (98-107); Glucose 103 mg/dL (70-105); Magnesium 1.8 mg/dL (1.6-2.6); Osmolality,Calculated 278 (280-300); Platelet Estimate Normal (Normal); Potassium 3.9 mEq/L (3.5-5.1); Sodium 133 mEq/L (136-145); eGFR For Non-African Americans > 60 (> 60)
[2018-04-24 04:13] LABS: Microcytosis Present (Not Present); Poikilocytosis 1+ (Not Present)
[2018-04-24] MEDS: Pantoprazole 40 MG VIAL IVP SCH ×2 (05:29→17:36)
[2018-04-24] MEDS: *HR* Heparin 5,000 UNIT/ML VIAL SQ SCH ×3 (05:29→20:50)
[2018-04-24] MEDS: Thiamine (B-1) 100 MG TABLET PO SCH (09:05)
[2018-04-24] MEDS: Megestrol Acetate 400 MG/10 ML UDC PO SCH (10:47)
[2018-04-24] MEDS: Lactulose Oral Soln 20 GM/30 ML UDC PO SCH ×2 (10:48→20:50)
--- NOTE | 2018-04-24 12:20 | General Surgery Progress Note ---
Date of Encounter: 04/24/18 Time of Encounter: 12:19 - Assessment and Plan (1) Colon cancer metastasized to multiple sites Current Visit: Yes Status: Acute Patient is status post ileocolonic bypass. Doing very well. Will advance her diet. She continues to tolerate advancement then from a surgical perspective patient may be able to be discharged within the next 24 hours. Subjective Patient reports: other (She has been doing very well. No nausea or vomiting and has been tolerating a by mouth diet. Positive flatus) Objective Vital Signs - Last 8 Hours Temp Pulse Resp BP Pulse Ox 04/24/18 12:16 97.5 F L 87 14 109/73 95 04/24/18 09:06 95 04/24/18 07:49 97.5 F L 91 16 115/80 95 Intake and Output 04/23/18 04/24/18 04/24/18 23:59 07:59 15:59 Intake Total 260 / 260 1000 / 1000 Output Total 0 / 0 500 / 500 100 / 100 Balance 260 / 260 500 / 500 -100 / -100 Intake: IV Fluids 260 / 260 1000 / 1000 Sodium Phosphate 30 MMOL In 0.9 260 / 260 % Sodium Chloride 250 ML @ 42 mls/hr IVPB ONCE ONE Rx#: [id number] Oral 0 / 0 0 / 0 Output: Urine 0 / 0 500 / 500 100 / 100 Other: Weight 59.6 kg Patient Weight 04/24/18 23:59 Weight 59.6 kg - General physical appearance well nourished, no distress - Respiratory normal expansion, normal respiratory effort - Abdomen Abdomen: Present: bowel sounds present, soft, tender (Minimal tenderness to palpation) - Labs 04/24/18 03:15 04/24/18 03:15 Diabetes panel 04/24/18 Range/Units 03:15 Sodium 133 L (136-145) mEq/L Potassium 3.9 (3.5-5.1) mEq/L Chloride 106 (98-107) mEq/L Carbon Dioxide 22 L (23-29) mEq/L BUN 17 (8-23) mg/dL Creatinine 0.41 L (0.60-1.20) mg/dL Glucose 103 (70-105) mg/dL Calcium 8.3 L (8.6-10.3) mg/dL Calcium panel 04/24/18 Range/Units 03:15 Calcium 8.3 L (8.6-10.3) mg/dL Phosphorus 3.0 (2.7-4.5) mg/dL Pituitary panel 04/24/18 Range/Units 03:15 Sodium 133 L (136-145) mEq/L Potassium 3.9 (3.5-5.1) mEq/L Chloride 106 (98-107) mEq/L Carbon Dioxide 22 L (23-29) mEq/L BUN 17 (8-23) mg/dL Creatinine 0.41 L (0.60-1.20) mg/dL Glucose 103 (70-105) mg/dL Calcium 8.3 L (8.6-10.3) mg/dL Adrenal panel 04/24/18 Range/Units 03:15 Sodium 133 L (136-145) mEq/L Potassium 3.9 (3.5-5.1) mEq/L Chloride 106 (98-107) mEq/L Carbon Dioxide 22 L (23-29) mEq/L BUN 17 (8-23) mg/dL Creatinine 0.41 L (0.60-1.20) mg/dL Glucose 103 (70-105) mg/dL Calcium 8.3 L (8.6-10.3) mg/dL - VTE Documentation of Mechanical Device: Graduated compression elastic hosiery Consult Discharge Plan - Plan Referrals: Lizz Ariza CNP [Primary Care Provider] - Sandeep Singh Jr, MD [Family Provider] -
--- NOTE | 2018-04-24 16:25 | Internal Med Progress Note ---
Hospitalist Progress Note - Encounter Date of Encounter: 04/24/18 Time of Encounter: 11:30 - Subjective Interval History: Patient has very little appetite, diminished oral intake, tolerating fluids without any problem, no bowel movement yet - Exam Vitals: Temp Pulse Resp BP Pulse Ox 97.5 F L 87 14 109/73 95 04/24/18 12:16 04/24/18 12:16 04/24/18 12:16 04/24/18 12:16 04/24/18 12:16 Exam: Gen: Vitals noted. No acute distress. HEENT: Normocephalic, atraumatic. Neck: Supple. Cardiac: Regular rate and rhythm, no murmur, +S1/S2 Pulmonary: no wheezes, equal chest expansion, decreased breathing sound bilateral lung base Abdomen: soft, bowel sound is positive, mild diffuse abdominal tenderness Extremities: +1 lower extremity, nontender calf, no cyanosis or clubbing Neuro: moves all extremities, no focal deficits. A&Ox3 Psych: Appropriate mood and behavior - Assessment and Plan (1) Colonic mass Current Visit: Yes Status: Acute (2) DVT prophylaxis Current Visit: Yes Status: Acute (3) Partial small bowel obstruction Current Visit: Yes Status: Acute (4) Iron deficiency anemia due to chronic blood loss Current Visit: Yes Status: Acute (5) Moderate protein-calorie malnutrition Current Visit: Yes Status: Acute (6) Sinus tachycardia Current Visit: Yes Status: Acute (7) Hypophosphatemia Current Visit: Yes Status: Acute - Summary of Assessment and Plan Summary of Assessment and Plan: With iron deficiency anemia consider oral liquid iron. Add lactulose for constipation, add appetite stimulant, with her depression and poor sleep and poor appetite will add Remeron at bedtime, up to chair, possible discharge to ECF in next 24 hours, counseling about diet supplement - Time Spent with Patient Total time spent is greater than 50% in coordination of care (as documented) at patient's floor/unit and/or counseling patient: 25 - 35 minutes Internal Medicine: Result - Labs CBC & Chem 7: 04/24/18 03:15 04/24/18 03:15 Labs: Short CBC 04/24/18 Range/Units 03:15 WBC 10.3 (4.3-11.1) K/mcL Hgb 8.7 L (11.5-15.4) g/dL Hct 28.8 L (35.3-44.9) % Plt Count 293 (140-400) K/mcL Neutrophils # 8.0 (1.6-8.9) K/mcL BMP 04/24/18 03:15 Sodium 133 L Potassium 3.9 Chloride 106 Carbon Dioxide 22 L BUN 17 Creatinine 0.41 L Glucose 103 Calcium 8.3 L - ABG Interpretation ABG results: PT/INR, D-dimer PT 13.5 Seconds (9.4-12.1) H 04/15/18 19:51 - VTE Documentation of Mechanical Device: Graduated compression elastic hosiery Consult Discharge Plan - Plan Referrals: Lizz Ariza CNP [Primary Care Provider] - Sandeep Singh Jr, MD [Family Provider] -
[2018-04-24] MEDS: Ferrous Sulfate Oral Soln 300 MG/5 ML UDC PO SCH (17:36)
[2018-04-24] MEDS: Mirtazapine 15 MG TABLET PO SCH (20:50)
[2018-04-25] MEDS: *HR* Heparin 5,000 UNIT/ML VIAL SQ SCH ×3 (06:10→21:16)
[2018-04-25] MEDS: Pantoprazole 40 MG VIAL IVP SCH (06:10)
[2018-04-25] MEDS: *HR* OxyCODONE/APAP 10/325 TABLET PO PRN ×2 (06:11→14:16)
[2018-04-25] MEDS: Megestrol Acetate 400 MG/10 ML UDC PO SCH (08:48)
[2018-04-25] MEDS: Thiamine (B-1) 100 MG TABLET PO SCH (08:48)
[2018-04-25] MEDS: Ferrous Sulfate Oral Soln 300 MG/5 ML UDC PO SCH ×2 (08:48→16:17)
--- NOTE | 2018-04-25 15:42 | Electrocardiograph Report ---
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
[2018-04-25] MEDS: Mirtazapine 15 MG TABLET PO SCH (21:16)
--- NOTE | 2018-04-25 21:55 | Internal Med Progress Note ---
Hospitalist Progress Note - Encounter Date of Encounter: 04/26/18 Time of Encounter: 21:53 - Subjective Interval History: Pt denies N/V, fever or chills. She denies CP or SOB. Positive flatus. - Exam Vitals: Temp Pulse Resp BP Pulse Ox 98.1 F 94 16 115/77 93 04/25/18 19:41 04/25/18 19:41 04/25/18 19:41 04/25/18 19:41 04/25/18 19:41 Exam: Gen: Vitals noted. No acute distress. HEENT: Normocephalic, atraumatic. Neck: Supple. Cardiac: Regular rate and rhythm, no murmur, +S1/S2 Pulmonary: no wheezes, equal chest expansion, decreased breathing sound bilateral lung base Abdomen: soft, bowel sound is positive, mild diffuse abdominal tenderness Extremities: +1 lower extremity, nontender calf, no cyanosis or clubbing Neuro: moves all extremities, no focal deficits. A&Ox3 Psych: Appropriate mood and behavior - Assessment and Plan (1) Colonic mass Current Visit: Yes Status: Acute Assessment and Plan: Colonic mass with apparent metastasis including peritoneal carcinomatosis, liver metastases, retroperitoneal lymph node association Demonstrated on CT of the abdomen and pelvis which was ordered by PCP Patient has had symptoms of obstruction associated with this, however it appears to be partial in nature Was seen by surgery who determined she likely has colon cancer with mets. Oncology consulted and recommend ileostomy and palliative chemotherapy possibly s/p ileostomy. Oncology to follow out pt for further recommendations. Surgery awaiting return of bowel function prior to discharge. (2) Partial small bowel obstruction Current Visit: Yes Status: Acute Assessment and Plan: Likely secondary to colon mass. Surgery following and plan to monitor and introduce diet gradually and see if she tolerates 04/21- patient is post op day #1 s/p Ileocolonic anastomosis (palliative bypass) , Resection of omental mass and placement of access port Surgery states may discharge if diet tolerated. (3) Iron deficiency anemia due to chronic blood loss Current Visit: Yes Status: Acute Assessment and Plan: Hgb 8.7 and stable. likely due to colonic mass resulting in iron deficiency. Contninue iron supplement (4) Moderate protein-calorie malnutrition Current Visit: Yes Status: Acute Assessment and Plan: Diet advanced and slowly tolerating. (5) Sinus tachycardia Current Visit: Yes Status: Acute Assessment and Plan: resolved. (6) Hypophosphatemia Current Visit: Yes Status: Acute Assessment and Plan: corrected 3.0 DVT Prophylaxis: Heparin - Summary of Assessment and Plan Summary of Assessment and Plan: Ms. Mayo is a 77 year old female with limited medical history who presents to the ED on request of her primary care provider due to findings of a CT scan. She apparently has been having abdominal pain and constipation for approximately 2 months. She says that specifically, she has been having right lower quadrant abdominal pain which is nonsevere with radiation towards her upper abdomen over the past 4 weeks. She says that this is started gradually, but has Progressively Worse. She Also Admits to Some Nausea, vomiting, pencil size stool, and significant weight loss, and most concerning she has had diarrhea which is been watery in nature over the past couple of weeks as. She says that she has had 30 pounds weight loss over the past 3 years, and 7 pounds in the past 3 weeks alone. She says that in addition of this, she has had very poor appetite, and has barely had anything to eat or drink over the past couple of days. Nothing seems to make any of this any better, although eating does seem to make it somewhat worse. She finally went to see her primary care provider 2 days ago, at which time a CT of her abdomen was ordered. On the CT of the abdomen it was noted that there was a large infiltrating mass of the proximal ascending colon with resultant large and small bowel obstruction. There also noted liver metastases, peritoneal carcinomatosis and multiple peritoneal tumor nodules with some ascites. Following results of the CT, the patient's PCP apparently advised her to return to the ED for further workup. In the ED, Dr. Loving with [facility] was consultative and agreed to see the patient in the morning. At this time, she is not having significant abdominal pain and she has no specific acute complaints. - Time Spent with Patient Total time spent is greater than 50% in coordination of care (as documented) at patient's floor/unit and/or counseling patient: less than 15 minutes Plan of Care Discussed with: patient Internal Medicine: Result - Labs CBC & Chem 7: 04/24/18 03:15 04/24/18 03:15 - ABG Interpretation ABG results: PT/INR, D-dimer PT 13.5 Seconds (9.4-12.1) H 04/15/18 19:51 - VTE Documentation of Mechanical Device: Graduated compression elastic hosiery Consult Discharge Plan - Plan Referrals: Lizz Ariza CNP [Primary Care Provider] - Sandeep Singh Jr, MD [Family Provider] - Luisito Pedroza MD [Partnered Physician] - 05/04/18 9:00 am
[2018-04-26] MEDS: *HR* OxyCODONE/APAP 10/325 TABLET PO PRN ×3 (01:53→21:53)
[2018-04-26] MEDS: *HR* Heparin 5,000 UNIT/ML VIAL SQ SCH ×3 (06:39→21:53)
--- NOTE | 2018-04-26 07:20 | General Surgery Progress Note ---
Addendum entered and electronically signed by Irene Spencer 04/26/18 08:48: Patient had large bowel movement without enema needed indicates return of bowel function She is okay to discharge home from surgical point of view. Original Note: <Irene Spencer - Last Filed: 04/26/18 07:18> Date of Encounter: 04/26/18 Time of Encounter: 07:18 - Assessment and Plan (1) Colon cancer metastasized to multiple sites Current Visit: Yes Status: Acute POD # 6 from ileocolonic bypass and omental mass resection for metastatic colon cancer, palliative surgery for colon obstruction due to mass. -supportive care and pain management; we continue to encourage patient to take pain medication -continue softs but advance diet tolerated per patients wishes - ambulate as tolerated - pathology results adenocarcinoma likely from colonic origin - fleet enema today - Still awaiting return of bowel function before discharge (2) Bowel obstruction Current Visit: Yes Status: Acute see above Qualifiers: Intestinal obstruction type: unspecified Intestinal obstruction extent: unspecified extent Qualified Code(s): K56.609 - Unspecified intestinal obstruction, unspecified as to partial versus complete obstruction (3) Anemia Current Visit: Yes Status: Acute HgB 8.7 from 8.8; stable Qualifiers: Anemia type: iron deficiency Iron deficiency anemia type: chronic blood loss Qualified Code(s): D50.0 - Iron deficiency anemia secondary to blood loss (chronic) (4) Moderate protein-calorie malnutrition Current Visit: Yes Status: Acute tolerating softs Subjective Patient reports: still having pain (pain well controlled with medications, tolerating softs well), flatus, no bowel movement, afebrile Objective Vital Signs - Last 8 Hours Temp Pulse Resp BP Pulse Ox 04/26/18 03:52 97.7 F 97 16 120/76 93 Intake and Output 04/25/18 04/25/18 04/26/18 15:59 23:59 07:59 Intake Total 0 / 0 0 / 0 240 / 240 Output Total 300 / 300 Balance 0 / 0 0 / 0 -60 / -60 Intake: Oral 0 / 0 0 / 0 240 / 240 Output: Urine 300 / 300 Other: Meal Breakfast KEEP Percent of Meal Consumed 10% 0% # Bowel Movements 0 Weight 59.1 kg Patient Weight 04/26/18 23:59 Weight 59.1 kg - General physical appearance well developed, well nourished, no distress - Eyes normal ocular movement - ENT normal pinna, normal nares, normal mucosa - Respiratory normal expansion, normal respiratory effort, clear to auscultation - Cardiovascular Cardiovascular exam: Present: RRR, no murmurs/rubs/gallops - Abdomen Abdomen: Present: bowel sounds present (high pitched but normal frequency ), soft Abdominal Tenderness: RLQ Hernia: none - Incision Incision: Present: clean and dry, approximated. Absent: draining, swollen - Integumentary no rash, no growths, no abnormal pigmentation - Neurologic CN 2-12 grossly intact, normal coordination, normal sensation - Musculoskeletal normal gait, normal posture - Psychiatric oriented to time, oriented to person, oriented to place, speech is normal, memory intact - Labs 04/24/18 03:15 04/24/18 03:15 - VTE Documentation of Mechanical Device: Graduated compression elastic hosiery Consult Discharge Plan - Plan Referrals: Lizz Ariza CNP [Primary Care Provider] - Sandeep Singh Jr, MD [Family Provider] - Luisito Pedroza MD [Partnered Physician] - 05/04/18 9:00 am <Ammon Loving - Last Filed: 04/26/18 14:42> Date of Encounter: 04/26/18 - Assessment and Plan (1) Colon cancer metastasized to multiple sites Current Visit: Yes Status: Acute Objective Vital Signs - Last 8 Hours Temp Pulse Resp BP Pulse Ox 04/26/18 11:38 98.2 F 110 15 93 04/26/18 08:04 97.5 F L 106 18 106/62 91 Intake and Output 04/25/18 04/26/18 04/26/18 23:59 07:59 15:59 Intake Total 0 / 0 240 / 240 120 / 120 Output Total 300 / 300 50 / 50 Balance 0 / 0 -60 / -60 70 / 70 Intake: Oral 0 / 0 240 / 240 120 / 120 Output: Urine 300 / 300 50 / 50 Other: Meal KEEP Breakfast Percent of Meal Consumed 0% 5% Stool Size Moderate Stool Consistency loose soft Stool Color Brown # Bowel Movements 0 Weight 59.1 kg Patient Weight 04/26/18 23:59 Weight 59.1 kg - Labs 04/24/18 03:15 04/24/18 03:15 - Attending Attestation The patient is seen and evaluated on morning rounds with the resident and the medical student in the findings discussed with the clinical nurse practitioner. The patient did have bowel movement later in the morning. This indicates that the ileocolostomy palliative procedure is functioning. She should be able to go home this Ammon Loving MD FACS
[2018-04-26] MEDS: Thiamine (B-1) 100 MG TABLET PO SCH (08:38)
[2018-04-26] MEDS: Megestrol Acetate 400 MG/10 ML UDC PO SCH (08:38)
[2018-04-26] MEDS: Ferrous Sulfate Oral Soln 300 MG/5 ML UDC PO SCH ×2 (08:38→18:19)
--- NOTE | 2018-04-26 15:42 | Discharge Summary ---
Date of Encounter: 04/26/18 - Discharge Diagnosis (1) Colonic mass Status: Acute (2) Partial small bowel obstruction Status: Acute (3) Iron deficiency anemia due to chronic blood loss Status: Acute (4) Moderate protein-calorie malnutrition Status: Acute (5) Sinus tachycardia Status: Acute (6) Hypophosphatemia Status: Acute Hospital course: Ms. Mayo is a 77 year old female - Time Spent with Patient Total time spent providing and/or coordinating discharge services: - Discharge Medications Prescriptions: OxyCODONE/APAP 10/325 [Percocet 10/325 MG] 1 each PO Q8HR PRN 3 Days #9 tablet PRN Reason: MILD TO MODERATE Home Medications: Loratadine [Claritin] 10 mg PO DAILY 04/15/18 [History] Ranitidine HCl [Acid Sock Lining Examiner] 75 mg PO DAILY PRN 04/15/18 [History] Atenolol [Tenormin] 50 mg PO DAILY tablet 04/26/18 [Rx] Omeprazole [PriLOSEC] 20 mg PO DAILY@0730 capsule. 04/26/18 [Rx] OxyCODONE/APAP 10/325 [Percocet 10/325 MG] 1 each PO Q8HR PRN 3 Days #9 tablet 04/26/18 [Rx] Thiamine (B-1) [Vitamin B-1] 100 mg PO DAILY tablet 04/26/18 [Rx] Allergies/Adverse Reactions: 3 Allergy/AdvReac Type Severity Reaction Status Date / Time No Known Allergies Allergy Verified 04/15/18 19:53 Date of admission: 04/15/18 22:04 Primary care physician: Lizz Ariza CNP Consults: 04/22/18 16:30 Consult to Nutrition [CONS] Routine Comment: Consulting Provider: NUTRITION Reason for Dietary Consult: PO Supplementation 04/26/18 11:40 Consult to Physical Therapy [CONS] Stat Comment: Evaluate, develop and implement POC Reason for Consult: Increased weakness; originally set up for , concerned patient may need rehab. Possible DC but will need PT/OT eval if rehab recommended Does patient have active BEDREST order?: No Is patient medically & hemodynamically stable?: Yes Patient assessed for mobility or mobilized this visit?: No 04/26/18 11:41 Consult to Occupational Therapy [CONS] Stat Comment: Evaluate, develop and implement POC Reason for Consult: Increased weakness; originally set up for HH, concerned patient may need rehab. Possible DC but will need PT/OT eval if rehab recommended Does patient have active BEDREST order?: No Is patient medically & hemodynamically stable?: Yes Patient assessed for mobility or mobilized this visit?: No - Constitutional Vitals: Temp Pulse Resp BP Pulse Ox 98.7 F 100 12 87/57 93 04/26/18 15:01 04/26/18 15:01 04/26/18 15:01 04/26/18 15:07 04/26/18 15:01 - Patient Status Disposition: Transfer SNF Condition: Fair - Discharge Instructions Follow Up With: Lizz Ariza CNP [Primary Care Provider] - Sandeep Singh Jr, MD [Family Provider] - Luisito Pedroza MD [Partnered Physician] - 05/04/18 9:00 am - VTE Documentation of Mechanical Device: Graduated compression elastic hosiery
[2018-04-26] MEDS ORDERED: 0.9 % Sodium Chloride 1,000 ML IVC ONE (16:08)
[2018-04-26] MEDS ORDERED: 0.9 % Sodium Chloride 1,000 ML ONE (16:12)
[2018-04-26] MEDS ORDERED: 0.9 % Sodium Chloride 500 ML IVC ONE (17:40)
--- NOTE | 2018-04-26 18:47 | Internal Med Progress Note ---
Hospitalist Progress Note - Encounter Date of Encounter: 04/26/18 Time of Encounter: 11:00 - Subjective Interval History: Patient postop day 6 for ileocolonic bypass and omental mass resection for metastatic colon cancer for palliative surgery for colon obstruction due to mass. Patient had a bowel movement this morning however developed hypotension therefore 1.5L fluid boluses had to be given. Patient will be observed overnight for medical stability before discharging to the longterm facility. - Exam Vitals: Temp Pulse Resp BP Pulse Ox 98.7 F 100 12 99/65 93 04/26/18 15:01 04/26/18 15:01 04/26/18 15:01 04/26/18 17:38 04/26/18 15:01 Exam: Gen.: Nonacute distress, alert and oriented 3 ENT: Mucosal membranes moist Respiratory: Lungs are clear to auscultation bilaterally without any wheezing rhonchi or rales Cardiovascular: Normal S1 and S2 regular rate rhythm no murmurs rubs or gallops Abdomen: Soft, nontender and nondistended with positive bowel sounds Extremities: No lower extremity edema Skin: pale - Assessment and Plan (1) Colonic mass Current Visit: Yes Status: Acute Assessment and Plan: Patient postop day 6 for ileocolonic bypass and omental mass resection for metastatic colon cancer for palliative surgery for colon obstruction due to mass. Patient had a bowel movement this morning however developed hypotension therefore 1.5L fluid boluses had to be given. Patient will be observed overnight for medical stability before discharging to the longterm facility. (2) Partial small bowel obstruction Current Visit: Yes Status: Acute Assessment and Plan: As above (3) Iron deficiency anemia due to chronic blood loss Current Visit: Yes Status: Acute Assessment and Plan: Hemoglobin stable; continue to monitor (4) Moderate protein-calorie malnutrition Current Visit: Yes Status: Acute Assessment and Plan: Diet advanced and slowly tolerating. DVT Prophylaxis: Heparin subcutaneous - Time Spent with Patient Total time spent is greater than 50% in coordination of care (as documented) at patient's floor/unit and/or counseling patient: Internal Medicine: Result - Labs CBC & Chem 7: 04/24/18 03:15 04/24/18 03:15 - ABG Interpretation ABG results: PT/INR, D-dimer PT 13.5 Seconds (9.4-12.1) H 04/15/18 19:51 - VTE Documentation of Mechanical Device: Graduated compression elastic hosiery Consult Discharge Plan - Plan Referrals: Lizz Ariza CNP [Primary Care Provider] - Sandeep Singh Jr, MD [Family Provider] - Luisito Pedroza MD [Partnered Physician] - 05/04/18 9:00 am Prescriptions: OxyCODONE/APAP 10/325 [Percocet 10/325 MG] 1 each PO Q8HR PRN 3 Days #9 tablet PRN Reason: MILD TO MODERATE
[2018-04-26] MEDS: Mirtazapine 15 MG TABLET PO SCH (21:53)
[2018-04-27 03:52] LABS: Basophils % 0.2 %; Eosinophils % 0.1 %; Hemoglobin 8.8 g/dL (11.5-15.4); Immature Granulocytes % 0.7 % (0-4); Lymphocytes # 1.6 K/mcL (0.6-4.6); Lymphocytes % 9.2 %; Mean Corpuscular HGB Conc 29.3 g/dL (31.6-35.5); Mean Corpuscular Hemoglobin 18.7 pg (28.0-33.3); Mean Corpuscular Volume 63.7 fL (83.0-100.0); Mean Platelet Volume 9.3 fL (9.4-12.4); Monocytes % 5.8 %; Neutrophils # 14.1 K/mcL (1.6-8.9); Nucleated Red Blood Cells 0.1 /100 WBC (0); Platelet Count 345 K/mcL (140-400); Red Blood Count 4.71 M/mcL (3.82-4.97); Red Cell Distribution Width 26.1 % (11.5-14.5)
[2018-04-27 04:52] LABS: Anisocytosis 2+ (Not Present); Hypochromasia Present (Not Present); Poikilocytosis 1+ (Not Present)
[2018-04-27 04:53] LABS: Platelet Estimate Normal (Normal); Polychromasia 2+ (Not Present)
[2018-04-27 05:11] LABS: Calcium 7.9 mg/dL (8.6-10.3); Potassium 4.5 mEq/L (3.5-5.1)
[2018-04-27] MEDS: *HR* Heparin 5,000 UNIT/ML VIAL SQ SCH ×3 (05:14→21:28)
[2018-04-27] MEDS: Megestrol Acetate 400 MG/10 ML UDC PO SCH (08:12)
[2018-04-27] MEDS: *HR* OxyCODONE/APAP 10/325 TABLET PO PRN ×2 (08:13→16:53)
[2018-04-27] MEDS: Ferrous Sulfate Oral Soln 300 MG/5 ML UDC PO SCH ×2 (08:13→16:53)
[2018-04-27] MEDS: Thiamine (B-1) 100 MG TABLET PO SCH (08:13)
[2018-04-27] MEDS: Ringers Solution, Lactated 1,000 ML IVC SCH ×2 (12:17→21:37)
--- NOTE | 2018-04-27 19:08 | Internal Med Progress Note ---
Hospitalist Progress Note - Encounter Date of Encounter: 04/27/18 Time of Encounter: 11:00 - Subjective Interval History: Patient postop day 7 for ileocolonic bypass and omental mass resection for metastatic colon cancer for palliative surgery for colon obstruction due to mass. Patient still with hypotension on IV fluids Addition patient also now with acute renal failure - Exam Vitals: Temp Pulse Resp BP Pulse Ox 97.3 F L 89 16 85/57 92 04/27/18 11:42 04/27/18 11:42 04/27/18 11:42 04/27/18 11:42 04/27/18 11:42 Exam: Gen.: Nonacute distress, alert and oriented 3 ENT: Mucosal membranes moist Respiratory: Lungs are clear to auscultation bilaterally without any wheezing rhonchi or rales Cardiovascular: Normal S1 and S2 regular rate rhythm no murmurs rubs or gallops Abdomen: Soft, nontender and nondistended with positive bowel sounds Extremities: No lower extremity edema Skin: pale - Assessment and Plan (1) Hypotension Current Visit: Yes Status: Acute Assessment and Plan: Patient with continued low blood pressures today so we will continue IV fluids Patient's hemoglobin stable that is post ileocolonic bypass/omental mass resection; will continue to monitor (2) Acute renal failure (ARF) Current Visit: Yes Status: Acute Assessment and Plan: Creatinine has increased from 0.41 on 04/24/18 and 1.29 today with a GFR 40 (3) Colonic mass Current Visit: Yes Status: Acute Assessment and Plan: Patient postop day 7 for ileocolonic bypass and omental mass resection for metastatic colon cancer for palliative surgery for colon obstruction due to mass. Patient had a bowel movement this morning however developed hypotension therefore fluid resuscitation as above Patient will be observed overnight for medical stability before discharging to the [facility] facility. (4) Partial small bowel obstruction Current Visit: Yes Status: Acute Assessment and Plan: As above (5) Iron deficiency anemia due to chronic blood loss Current Visit: Yes Status: Acute Assessment and Plan: Hemoglobin stable; continue to monitor (6) Moderate protein-calorie malnutrition Current Visit: Yes Status: Acute Assessment and Plan: Diet advanced and slowly tolerating. - Time Spent with Patient Total time spent is greater than 50% in coordination of care (as documented) at patient's floor/unit and/or counseling patient: Internal Medicine: Result - Labs CBC & Chem 7: 04/27/18 03:35 04/27/18 03:35 Labs: Short CBC 04/27/18 Range/Units 03:35 WBC 16.8 H D (4.3-11.1) K/mcL Hgb 8.8 L (11.5-15.4) g/dL Hct 30.0 L (35.3-44.9) % Plt Count 345 (140-400) K/mcL Neutrophils # 14.1 H (1.6-8.9) K/mcL BMP 04/27/18 03:35 Sodium 135 L Potassium 4.5 Chloride 106 Carbon Dioxide 19 L BUN 37 H Creatinine 1.29 H Glucose 99 Calcium 7.9 L - ABG Interpretation ABG results: PT/INR, D-dimer PT 13.5 Seconds (9.4-12.1) H 04/15/18 19:51 - VTE Documentation of Mechanical Device: Graduated compression elastic hosiery Consult Discharge Plan - Plan Referrals: Lizz Ariza CNP [Primary Care Provider] - Sandeep Singh Jr, MD [Family Provider] - Luisito Pedroza MD [Partnered Physician] - 05/04/18 9:00 am Prescriptions: OxyCODONE/APAP 10/325 [Percocet 10/325 MG] 1 each PO Q8HR PRN 3 Days #9 tablet PRN Reason: MILD TO MODERATE
[2018-04-27] MEDS: Mirtazapine 15 MG TABLET PO SCH (21:27)
[2018-04-28] MEDS ORDERED: 0.9 % Sodium Chloride 1,000 ML IVC ONE ×2 (00:27→05:21)
[2018-04-28] MEDS ORDERED: Isovue-370 500 ML INFUS..BTL IV ONE ×2 (03:03→03:09)
[2018-04-28] MEDS: Micafungin 100 MG in 0.9 % Sodium Chloride Mini Bag 100 ML IVPB SCH (06:01)
[2018-04-28] MEDS: *HR* Heparin 5,000 UNIT/ML VIAL SQ SCH ×3 (06:01→22:04)
[2018-04-28 07:03] LABS: Basophils % 0.2 %; Hematocrit 31.1 % (35.3-44.9); Hemoglobin 9.2 g/dL (11.5-15.4); Immature Granulocytes % 0.6 % (0-4); Lymphocytes # 0.6 K/mcL (0.6-4.6); Lymphocytes % 4.9 %; Mean Corpuscular HGB Conc 29.6 g/dL (31.6-35.5); Mean Corpuscular Hemoglobin 18.7 pg (28.0-33.3); Mean Corpuscular Volume 63.3 fL (83.0-100.0); Monocytes # 0.3 K/mcL (0.0-1.3); Monocytes % 2.2 %; Neutrophils # 11.1 K/mcL (1.6-8.9); Nucleated Red Blood Cells 0.4 /100 WBC (0); Platelet Count 410 K/mcL (140-400); Red Blood Count 4.91 M/mcL (3.82-4.97); Segmented Neutrophils % 92.1 %
[2018-04-28 07:20] LABS: Albumin/Globulin Ratio 0.9 (1.1-2.2); Bilirubin,Total 0.6 mg/dL (0.3-1.0); Calcium 7.3 mg/dL (8.6-10.3); Globulin 2.2 g/dL (2.4-3.5); Potassium 5.2 mEq/L (3.5-5.1); Total Protein 4.2 g/dL (6.4-8.9)
[2018-04-28 07:40] LABS: Anisocytosis 2+ (Not Present); Microcytosis Present (Not Present); Poikilocytosis 1+ (Not Present)
[2018-04-28 07:41] LABS: Hypochromasia Present (Not Present); Platelet Estimate Increased (Normal)
[2018-04-28] MEDS: Ringers Solution, Lactated 1,000 ML IVC SCH (08:00)
[2018-04-28] MEDS ORDERED: Ringers Solution, Lactated 1,000 ML IVC ONE (08:02)
--- NOTE | 2018-04-28 08:09 | Internal Med Progress Note ---
Hospitalist Progress Note - Encounter Date of Encounter: 04/28/18 Time of Encounter: 08:00 - Subjective Interval History: Patient postop day 8 for ileocolonic bypass and omental mass resection for metastatic colon cancer for palliative surgery for colon obstruction due to mass. Patient with no improvement in hypotension in spite of fluid boluses with worsening renal failure Stat CT of the abdomen/pelvis last evening showed moderate volume pneumoperitoneum with moderate volume abdominal ascites. Due to leukocytosis and abdominal ascites above she was started on micafungin and Zosyn last evening. In addition patient now also with acute hypoxic respiratory failure requiring 5 L of Oxymizer mask She will be transferred to the progressive unit (ICU overflow) due to her deteriorating condition - Exam Vitals: Temp Pulse Resp BP Pulse Ox 98.5 F 91 25 76/50 95 04/28/18 06:45 04/28/18 06:45 04/28/18 06:45 04/28/18 06:45 04/28/18 06:45 Exam: Gen.: Nonacute distress, alert and oriented 3 ENT: Mucosal membranes moist Respiratory: Lungs are clear to auscultation bilaterally without any wheezing rhonchi or rales Cardiovascular: Normal S1 and S2 regular rate rhythm no murmurs rubs or gallops Abdomen: Distended and tight with decreased bowel sounds Extremities: Bilateral 1+ pitting edema up to mid tibia Skin: Pale - Assessment and Plan (1) Hypotension Current Visit: Yes Status: Acute Assessment and Plan: Patient with no improvement in hypotension despite multiple fluid boluses Continue fluid resuscitation Patient's hemoglobin stable that is post ileocolonic bypass/omental mass resection; will continue to monitor Repeat CT abdominal/pelvis findings as below (2) Acute respiratory failure with hypoxia Current Visit: Yes Status: Acute Assessment and Plan: Patient now with acute hypoxic respiratory failure as patient was on room air now requiring 5 L of oxygen mask Patient also with bilateral lower extremity edema Suspect secondary to volume overload due to fluid resuscitation for hypovolemia above Stat chest x-ray ordered (3) Acute renal failure (ARF) Current Visit: Yes Status: Acute Assessment and Plan: Creatinine has increased from 0.41 on 04/24/18 and 1.29 yesterday and now 2.08 this morning with a GFR 28 Suspect prerenal secondary to hypovolemia above Will continue fluid resuscitation as above (4) Colonic mass Current Visit: Yes Status: Acute Assessment and Plan: Patient postop day 8 for ileocolonic bypass and omental mass resection for metastatic colon cancer for palliative surgery for colon obstruction due to mass. Stat CT of the abdomen/pelvis last evening showed moderate volume pneumoperitoneum with moderate volume abdominal ascites. Due to leukocytosis and abdominal ascites,she was started on micafungin and Zosyn last evening. Discussed with general surgery who will reassess patient. (5) Ascites Current Visit: Yes Status: Acute Assessment and Plan: Patient with moderate volume abdominal ascites on stat CT abdomen/pelvis as above Discussed with general surgery as above we will reassess patient We will continue IV micafungin and IV Zosyn (6) Partial small bowel obstruction Current Visit: Yes Status: Acute Assessment and Plan: As above (7) Iron deficiency anemia due to chronic blood loss Current Visit: Yes Status: Acute Assessment and Plan: Hemoglobin stable; continue to monitor (8) Moderate protein-calorie malnutrition Current Visit: Yes Status: Acute Assessment and Plan: Diet advanced and slowly tolerating. DVT Prophylaxis: Heparin subcutaneous - Time Spent with Patient Total time spent is greater than 50% in coordination of care (as documented) at patient's floor/unit and/or counseling patient: Internal Medicine: Result - Labs CBC & Chem 7: 04/28/18 06:50 04/28/18 06:50 Labs: Short CBC 04/28/18 Range/Units 06:50 WBC 12.1 H (4.3-11.1) K/mcL Hgb 9.2 L (11.5-15.4) g/dL Hct 31.1 L (35.3-44.9) % Plt Count 410 H (140-400) K/mcL Neutrophils # 11.1 H (1.6-8.9) K/mcL BMP 04/28/18 06:50 Sodium 132 L Potassium 5.2 H Chloride 106 Carbon Dioxide 15 L BUN 52 H Creatinine 2.08 H Glucose 70 Calcium 7.3 L Liver Function 04/28/18 Range/Units 06:50 Total Bilirubin 0.6 (0.3-1.0) mg/dL AST 20 (13-39) Units/L ALT 8 (7-52) Units/L Alkaline Phosphatase 64 (34-104) Units/L Albumin 2.0 L (3.5-5.7) g/dL - ABG Interpretation ABG results: PT/INR, D-dimer PT 13.5 Seconds (9.4-12.1) H 04/15/18 19:51 - Impressions Impressions Abdomen/Pelvis CT 04/28/18 03:09 IMPRESSION: Moderate volume pneumoperitoneum with moderate volume abdominal ascites and peritoneal enhancement presumably reflects sequela of perforated viscus relating to treatment of colonic mass (although no discrete mucosal defect identified). Peritoneal enhancement suggests superinfection of peritoneal fluid. Interval decrease in size of infiltrating colonic mass and some of the peritoneal nodules suggests positive treatment response. Features of volume overload, including abdominal ascites, bilateral effusions and diffuse soft tissue anasarca. D/ / 04/28/2018 07:26:01 Binu Gilliam / kaitlin Interpreting Provider: Binu Gilliam - VTE Documentation of Mechanical Device: Graduated compression elastic hosiery Consult Discharge Plan - Plan Referrals: Lizz Ariza CNP [Primary Care Provider] - Sandeep Singh Jr, MD [Family Provider] - Luisito Pedroza MD [Partnered Physician] - 05/04/18 9:00 am Prescriptions: OxyCODONE/APAP 10/325 [Percocet 10/325 MG] 1 each PO Q8HR PRN 3 Days #9 tablet PRN Reason: MILD TO MODERATE
[2018-04-28] MEDS ORDERED: *HR* Dextrose 50 % in Water (Syg) 50 ML SYRINGE ONE (08:49)
[2018-04-28] MEDS ORDERED: *HR* Dextrose 50 % in Water (Syg) 50 ML SYRINGE IVP ONE ×2 (08:54→16:03)
[2018-04-28] MEDS: Ferrous Sulfate Oral Soln 300 MG/5 ML UDC PO SCH (09:14)
[2018-04-28] MEDS: Thiamine (B-1) 100 MG TABLET PO SCH (09:14)
[2018-04-28] MEDS: Piperacillin/Tazobactam 3.375 GM in 0.9 % Sodium Chloride Mini Bag 100 ML IVPB SCH ×2 (09:17→12:11)
--- NOTE | 2018-04-28 09:40 | Pulmonology Consult Note ---
<Zander Mcdonald W - Last Filed: 04/28/18 11:34> Date of Encounter: 04/28/18 Medications and Allergies Loratadine [Claritin] 10 mg PO DAILY 04/15/18 [History] Ranitidine HCl [Acid Glass Toughening Operator] 75 mg PO DAILY PRN 04/15/18 [History] Atenolol [Tenormin] 50 mg PO DAILY tablet 04/26/18 [Rx] Omeprazole [PriLOSEC] 20 mg PO DAILY@0730 capsule. 04/26/18 [Rx] OxyCODONE/APAP 10/325 [Percocet 10/325 MG] 1 each PO Q8HR PRN 3 Days #9 tablet 04/26/18 [Rx] Thiamine (B-1) [Vitamin B-1] 100 mg PO DAILY tablet 04/26/18 [Rx] 3 Allergy/AdvReac Type Severity Reaction Status Date / Time No Known Allergies Allergy Verified 04/15/18 19:53 All Systems: The remainder of the systems were reviewed and are negative Physical Examination Vital Signs: Vital Signs, Last 4 Hours Pulse 04/28/18 09:33 86 Results - Laboratory Findings CBC and BMP: 04/28/18 06:50 04/28/18 06:50 PT/INR, D-dimer PT 13.5 Seconds (9.4-12.1) H 04/15/18 19:51 Abnormal lab findings: Abnormal lab results WBC 12.1 K/mcL (4.3-11.1) H 04/28/18 06:50 Hgb 9.2 g/dL (11.5-15.4) L 04/28/18 06:50 Hct 31.1 % (35.3-44.9) L 04/28/18 06:50 MCV 63.3 fL (83.0-100.0) L 04/28/18 06:50 MCH 18.7 pg (28.0-33.3) L 04/28/18 06:50 MCHC 29.6 g/dL (31.6-35.5) L 04/28/18 06:50 RDW 27.0 % (11.5-14.5) H 04/28/18 06:50 Plt Count 410 K/mcL (140-400) H 04/28/18 06:50 MPV 9.0 fL (9.4-12.4) L 04/28/18 06:50 Neutrophils # 11.1 K/mcL (1.6-8.9) H 04/28/18 06:50 Nucleated RBCs/100 WBC 0.4 /100 WBC (0) H 04/28/18 06:50 Hyposegmented Neuts Present (Not Present) A 04/18/18 06:29 Platelet Estimate Increased (Normal) H 04/28/18 06:50 Polychromasia 2+ (Not Present) A 04/27/18 03:35 Hypochromasia Present (Not Present) A 04/28/18 06:50 Poikilocytosis 1+ (Not Present) A 04/28/18 06:50 Basophilic Stippling 1+ (Not Present) A 04/20/18 03:45 Anisocytosis 2+ (Not Present) A 04/28/18 06:50 Microcytosis Present (Not Present) A 04/28/18 06:50 Macrocytosis Present (Not Present) A 04/22/18 04:00 Tear Drop Cells 1+ (Not Present) A 04/22/18 04:00 Ovalocytes 1+ (Not Present) A 04/22/18 04:00 Acanthocytes (Spur) 1+ (Not Present) A 04/22/18 04:00 Haptoglobin 293 mg/dL (30-200) H 04/15/18 19:51 PT 13.5 Seconds (9.4-12.1) H 04/15/18 19:51 Sodium 132 mEq/L (136-145) L 04/28/18 06:50 Potassium 5.2 mEq/L (3.5-5.1) H 04/28/18 06:50 Carbon Dioxide 15 mEq/L (23-29) L 04/28/18 06:50 BUN 52 mg/dL (8-23) H 04/28/18 06:50 Creatinine 2.08 mg/dL (0.60-1.20) H 04/28/18 06:50 Est GFR ( Amer) 28 (> 60) L 04/28/18 06:50 Est GFR (Non-Af Amer) 23 (> 60) L 04/28/18 06:50 POC Glucose 117 mg/dL (70-99) H 04/28/18 09:32 Calcium 7.3 mg/dL (8.6-10.3) L 04/28/18 06:50 Serum Total Protein 4.2 g/dL (6.4-8.9) L 04/28/18 06:50 Albumin 2.0 g/dL (3.5-5.7) L 04/28/18 06:50 Globulin 2.2 g/dL (2.4-3.5) L 04/28/18 06:50 Albumin/Globulin Ratio 0.9 (1.1-2.2) L 04/28/18 06:50 Prealbumin 3.4 mg/dL (17.0-34.0) L 04/23/18 03:50 Vitamin B12 1339 pg/mL (250-1100) H 04/23/18 03:50 Ur Specific [place] 1.027 (1.010-1.025) H 04/16/18 05:17 Urine Ketones 40 mg/dL (Negative) H 04/16/18 05:17 Urine Urobilinogen 2.0 mg/dL (Normal) H 04/16/18 05:17 Ur Leukocyte Esterase Moderate (Negative) H 04/16/18 05:17 Urine Microscopic WBC 3-5 per hpf (0-3) H 04/16/18 05:17 Ur Squamous Epith Cells Many per lpf (None-Few) H 04/16/18 05:17 Ur Culture Indicated? NO. (NO) A 04/16/18 05:17 - Microbiology Findings Microbiology Findings: Microbiology, Last 48 Hours 04/28/18 06:50 Blood Culture - Preliminary Peripheral Venipuncture Culture is incubating and being continuously monitored for growth. Final report to follow. 04/28/18 06:44 Blood Culture - Preliminary Peripheral Venipuncture Culture is incubating and being continuously monitored for growth. Final report to follow. - Clinical Findings Intake & Output: Intake & Output 04/27/18 04/28/18 04/28/18 23:59 07:59 15:59 Intake Total 2240 / 2240 1000 / 1000 250 / 250 Output Total 0 / 0 0 / 0 Balance 2240 / 2240 1000 / 1000 250 / 250 Weight 65.6 kg Consult Discharge Plan - Plan Referrals: Lizz Ariza CNP [Primary Care Provider] - Sandeep Singh Jr, MD [Family Provider] - Luisito Pedroza MD [Partnered Physician] - 05/04/18 9:00 am Prescriptions: OxyCODONE/APAP 10/325 [Percocet 10/325 MG] 1 each PO Q8HR PRN 3 Days #9 tablet PRN Reason: MILD TO MODERATE - Attending Attestation I examined this patient and my medical decision-making was reviewed with the Resident Physician. I agree with the documented findings, disposition and treatment plan as described except to the extent set forth below. We independently had [id number] contact with the patient I spent 35min of Critical Care time with this patient. It involved decision making of high complexity to assess, manipulate, and support vital organ system failure and/or to prevent further life threatening deterioration of the patient' s condition. The time involved in the performance of separately reportable procedures was not counted toward critical care time. Patient seen and examined at bedside Labs, radiology, chart personally reviewed. Management was reviewed during multidisciplinary critical care rounds. INDUSTRIAL SALES MANAGER: Patient fully awake and alert no gross focal neurological deficits Pulm: Acute hypoxic respiratory failure acceptable oxygenation on oxygen mask poor candidate for BiPAP because of abdominal distention but could use if patient continues to decline Cards: Hypotension without shock physiology will use colloid resuscitation if this fails will need vasopressor to keep map greater than 60-65 GI: Patient is postoperative from bowel resection for palliation related to metastatic cancer. There is evidence of intra-abdominal free air abdominal exam is fairly benign lactate is within normal limits general surgery is been re -consulted pending their evaluations Nutrition: nothing by mouth for now Renal: Acute kidney injury likely prerenal azotemia cannot exclude possibility of intra-abdominal compartment syndrome although I think that this is unlikely. Also for metastatic disease possibility of obstructive nephropathy but CT scan without evidence of this [address] Rodriguez catheter may need a nephrology consult patient states that she is adamant that she would not undergo dialysis UOP Monitored, Cont to Trend sCr and monitor Electrolytes. ID: Severe sepsis likely intra-abdominal infection she is on broad-spectrum antibiotics with plan a de-escalate based upon cultures Heme/Onc: DVT prophylaxis given; the patient has metastatic colon cancer Endo: Glucose Monitored; I have a suspicion for adrenal insufficiency given hyponatremia hyperkalemia hypotension without lactic acidosis will send for random cortisol likely would need stress dose hydrocortisone Integ/MSK: Skin Care per routine ICU Nursing Protocol to prevent ulcers. Lines: All lines examined without evidence of infection : Dispo: Monitor in ICU because of high risk of further decline requiring vasopressor support CODE: DNAR/DNI I had a extensive conversation with the patient in front of the house staff as well as the bedside nurse regarding her goals of care she is adamant that she does not want to seek aggressive care in the form of intubation or cardiopulmonary resuscitation I have changed her CODE STATUS to reflect this I will also involve palliative care for further discussion <Tommie Esqueda R - Last Filed: 04/28/18 16:23> Date of Encounter: 04/28/18 Time of Encounter: 09:35 Assessment and Plan (1) Severe sepsis Current Visit: Yes Status: Acute Patient with persistent hypotension despite fluid resuscitation, worsening respiratory failure with hypoxia. Abdominal CT demonstrating pneumoperitoneum and partial small bowel obstruction, concern for intra-abdominal infection due to recent abdominal surgery. WBC count down today from 16.8> 12.1. Patient normothermic with temperature of 98.5 Fahrenheit. Patient has received adequate crystalloid resuscitation with suboptimal response. Patient is edematous of the bilateral lower extremities and bilateral rales. Will trial 500 mL albumin bolus and assess for response. If suboptimal will begin patient on Levophed vasopressor support. Continue with broad-spectrum abdominal coverage including Zosyn and micafungin. Obtain random cortisol for possible adrenal insufficiency Gen. surgery has been consultation with recommendations pending, appreciate their consultation. Patient status was reviewed with patient and patient's daughter at the bedside. CODE STATUS was reviewed and patient confirms that she does not wish for cardiopulmonary resuscitation in the event of cardiac arrest and does not wish for intubation in the event of respiratory failure. (2) Acute respiratory failure with hypoxia Current Visit: Yes Status: Acute Patient has no supplement oxygen requirement at baseline. Is requiring progressively greater amounts of supplemental oxygen now at 5 L by oxygen mask. Patient does have rales bilaterally, evidence on chest x-ray of pulmonary vascular congestion and small lung volumes due to abdominal distention. Patient unlikely to tolerate diuresis at this time. We will continue supplemental oxygenation as necessary. Can consider BiPAP if needed, however in this patient with abdominal distention this may result in vomiting and aspiration. Patient has made it clear that she does not wish for intubation (3) Acute renal failure (ARF) Current Visit: Yes Status: Acute Worsening acute kidney injury with increase in creatinine from 0.4> 1.2> 2.08. Etiology is likely prerenal azotemia due to hypotension or possibly increased intra-abdominal pressure. Begin vasopressor support as needed. We will begin Rodriguez catheter for strict input and output measurements. We will avoid nephrotoxic agents as possible. Will consider intra-abdominal pressure measurement. We will consider nephrology consultation, however at this time the patient is hesitant to accept hemodialysis. Qualifiers: Acute renal failure type: unspecified Qualified Code(s): N17.9 - Acute kidney failure, unspecified (4) Colon cancer metastasized to multiple sites Current Visit: Yes Status: Acute Colon cancer found by pathology to be adenocarcinoma. Initial presentation on due to constipation and abdominal distention secondary to bowel obstruction. Patient was found by CT exam to have metastatic mass causing obstruction. Metastasis was identified on initial CT including peritoneal carcinomatosis, liver metastases, and retroperitoneal lymph node involvement. Patient underwent palliative ileocolic bypass with Dr. Loving on 04/20/2018. Oncology has been consultation following patient. Prior to clinical decline plan was for adjuvant systemic treatment. Pending further surgical and oncologic recommendations at this time. (5) Partial small bowel obstruction Current Visit: Yes Status: Acute Patient is presenting with abdominal distention secondary to partial small bowel obstruction identified on abdominal CT. Patient does have air and stool in the distal colon, states she is passing flatus. This suggests she does not have complete obstruction. At present she is denying nausea or vomiting. Will consider NG placement and decompression if patient develops nausea and vomiting. Patient is currently nothing by mouth due to obstruction. (6) Abdominal pain Current Visit: Yes Status: Acute Patient is reporting diffuse distention and mild abdominal pain. She states the pain largely feels postsurgical. There is no acute worsening of abdominal pain. She does have mild diffuse pain to light palpation. And abdomen is tympanic and distended. No evidence of incision infection or dehiscence. Qualifiers: Abdominal location: right lower quadrant Qualified Code(s): R10.31 - Right lower quadrant pain (7) Ascites Current Visit: Yes Status: Acute Patient did have ascites upon initial evaluation prior to surgery. Return of ascites was identified on abdominal CT scan obtained today. Ascites is likely malignant in nature due to significant tumor burden of the peritoneal cavity. Likely some hydrostatic component and third spacing due to recent abdominal surgery and volume overload. Patient does not have significant abdominal pain or discomfort at this time. May consider therapeutic paracentesis in the future if worsening ascites and discomfort becomes evident. We will give albumin 500 mL for oncotic pressure support. Qualifiers: Ascites type: malignant Qualified Code(s): R18.0 - Malignant ascites (8) Iron deficiency anemia due to chronic blood loss Current Visit: Yes Status: Acute Patient has been anemic since initial presentation. Likely chronic in nature due to colon cancer. H/H remained stable. We will continue to follow closely, may consider transfusion if worsens if this aligns with goals of care. (9) Hyperkalemia Current Visit: Yes Status: Acute Patient is with worsening hyperkalemia. Most recent potassium is 5.7. Worsening hyperkalemia likely due to patient acute kidney injury and poor renal function with minimal urine output. Oral Kayexalate would be contraindicated in this patient due to partial bowel obstruction. Have discussed possibility of Kayexalate enema with the surgical team given patient recent abdominal surgery. Per surgery this would be acceptable to administer. May utilize temporizing measures including insulin with dextrose, bicarbonate, and albuterol in association with calcium gluconate for myocardial stability. (10) Advance care planning Current Visit: Yes Status: Acute Patient status is DNR CC arrest upon presentation to ICU. Patient's CODE STATUS and wishes of care were discussed with the patient at the bedside. Patient made it clear that she does not wish for cardiopulmonary resuscitation event of cardiac arrest does not wish for invasive ventilation/intubation in the event of respiratory failure. She is going to make further considerations with regard to possible dialysis and aggressiveness of therapy. Gen. surgery recommendations for management are pending at this time. Palliative care team has been reconsulted to better establish goals of care. Appreciate their recommendations and consultation. (11) DVT prophylaxis Current Visit: Yes Status: Acute Will remain on 5000 units SQ heparin 3 times a day. Lovenox generally preferred in cancer patients, however due to recent kidney injury continue with heparin. History of Present Illness Consult date: 04/28/18 Requesting physician: Magnus Rivera Reason for consult: dyspnea, other (hypotension) Chief complaint: shortness of breath History of present illness: Patient is a 77-year-old female status post day #8 ileocolonic anastomosis and mass resection. Patient presented initially for abdominal pain and constipation on 04/15/2018. She was found by abdominal CT to have a large infiltrating mass of the descending colon causing large and small bowel obstructions. Metastasis was seen to involve the liver, peritoneum, multiple nodules, and ascites is present. Patient did meet with palliative care prior to surgery, and it was decided the patient would be DNR however would undergo palliative surgical management for her obstruction. She was taken to surgery on 04/20/[address] Loving. Postsurgical recovery was, located by partial small bowel obstruction this was believed to be resolving and patient was tolerating clear diet. It was observed on 04/27/2018 and the patient was persistently hypotensive despite fluid resuscitation, and acute kidney injury was identified. Today patient developed shortness of breath requiring 5 L of oxygen via oxygen mask. Hypotension persisted. Abdominal CT scan was obtained and did reveal moderate pneumoperitoneum as well as ascites, enlarged and thickened bowel. Due to persistent hypotension and worsening respiratory status patient was transferred to the ICU for further evaluation and management. Patient is reporting abdominal fullness, no worsening pain. Some subjective shortness of breath. Zosyn and micafungin were started overnight. Past Med Surg Social Fam HX - Past Medical History Medical history: GERD - Social History Smoking Status: Never smoker Alcohol use: none Drug use: none - Family History Mother Adopted: No Living Status: Age at : 96 Cause of : stroke Hx Family Cardiac Disorders: Yes (mother irregular heart beat.) Hx Family Respiratory Disorders: No Hx Family Cancer: No Hx Family GI Disorders: No Hx Family Genitourinary Disorders: No Hx Family Endocrine Disorder: Yes (dad DM) Hx Family Musculoskeletal Disorders: No Hx Family Neuromuscular Disorders: No Hx Family Neurologic Disorders: No Hx Family HEENT Disorders: Yes (Mother hearing r/t spinal mengitis) Hx Family Autoimmune Disorders: No Hx Family Reproductive Disorders: No Hx Family Psychosocial Disorders: No Hx Family Medical Disorders: No All Systems: The remainder of the systems were reviewed and are negative - Constitutional Constitutional: fatigue, weakness - EENT Nose, mouth and throat: dry mouth - Cardiovascular Cardiovascular: dyspnea, no chest pain, no lightheadedness - Respiratory Respiratory: dyspnea - Gastrointestinal Gastrointestinal: abdominal pain (Stable postsurgical pain), no diarrhea, no vomiting Physical Examination Vital Signs: Vital Signs, Last 4 Hours Temp Pulse Resp BP Pulse Ox 04/28/18 06:45 98.5 F 91 25 76/50 95 General appearance: lethargic Eyes: nonicteric ENT: oropharynx dry Neck: supple Effort: mildly labored Auscultation: bilateral: diminished breath sounds (Diminished breath sounds at bilateral lung bases), rales Percussion: bilateral: not dull Cardiovascular: regular rate and rhythm Gastrointestinal: hypoactive bowel sounds, tender (To palpation diffusely), other (Distended) Integumentary: other (Pale) Extremities: no cyanosis, edema (Pitting edema of the bilateral lower extremities) Musculoskeletal: no deformities normal mental status, non-focal exam mood appropriate Results - Laboratory Findings CBC and BMP: 04/28/18 06:50 04/28/18 11:00 PT/INR, D-dimer PT 13.5 Seconds (9.4-12.1) H 04/15/18 19:51 Abnormal lab findings: Abnormal lab results WBC 12.1 K/mcL (4.3-11.1) H 04/28/18 06:50 Hgb 9.2 g/dL (11.5-15.4) L 04/28/18 06:50 Hct 31.1 % (35.3-44.9) L 04/28/18 06:50 MCV 63.3 fL (83.0-100.0) L 04/28/18 06:50 MCH 18.7 pg (28.0-33.3) L 04/28/18 06:50 MCHC 29.6 g/dL (31.6-35.5) L 04/28/18 06:50 RDW 27.0 % (11.5-14.5) H 04/28/18 06:50 Plt Count 410 K/mcL (140-400) H 04/28/18 06:50 MPV 9.0 fL (9.4-12.4) L 04/28/18 06:50 Neutrophils # 11.1 K/mcL (1.6-8.9) H 04/28/18 06:50 Nucleated RBCs/100 WBC 0.4 /100 WBC (0) H 04/28/18 06:50 Hyposegmented Neuts Present (Not Present) A 04/18/18 06:29 Platelet Estimate Increased (Normal) H 04/28/18 06:50 Polychromasia 2+ (Not Present) A 04/27/18 03:35 Hypochromasia Present (Not Present) A 04/28/18 06:50 Poikilocytosis 1+ (Not Present) A 04/28/18 06:50 Basophilic Stippling 1+ (Not Present) A 04/20/18 03:45 Anisocytosis 2+ (Not Present) A 04/28/18 06:50 Microcytosis Present (Not Present) A 04/28/18 06:50 Macrocytosis Present (Not Present) A 04/22/18 04:00 Tear Drop Cells 1+ (Not Present) A 04/22/18 04:00 Ovalocytes 1+ (Not Present) A 04/22/18 04:00 Acanthocytes (Spur) 1+ (Not Present) A 04/22/18 04:00 Haptoglobin 293 mg/dL (30-200) H 04/15/18 19:51 PT 13.5 Seconds (9.4-12.1) H 04/15/18 19:51 Sodium 132 mEq/L (136-145) L 04/28/18 06:50 Potassium 5.2 mEq/L (3.5-5.1) H 04/28/18 06:50 Carbon Dioxide 15 mEq/L (23-29) L 04/28/18 06:50 BUN 52 mg/dL (8-23) H 04/28/18 06:50 Creatinine 2.08 mg/dL (0.60-1.20) H 04/28/18 06:50 Est GFR ( Amer) 28 (> 60) L 04/28/18 06:50 Est GFR (Non-Af Amer) 23 (> 60) L 04/28/18 06:50 POC Glucose 117 mg/dL (70-99) H 04/28/18 09:32 Calcium 7.3 mg/dL (8.6-10.3) L 04/28/18 06:50 Serum Total Protein 4.2 g/dL (6.4-8.9) L 04/28/18 06:50 Albumin 2.0 g/dL (3.5-5.7) L 04/28/18 06:50 Globulin 2.2 g/dL (2.4-3.5) L 04/28/18 06:50 Albumin/Globulin Ratio 0.9 (1.1-2.2) L 04/28/18 06:50 Prealbumin 3.4 mg/dL (17.0-34.0) L 04/23/18 03:50 Vitamin B12 1339 pg/mL (250-1100) H 04/23/18 03:50 Ur Specific [place] 1.027 (1.010-1.025) H 04/16/18 05:17 Urine Ketones 40 mg/dL (Negative) H 04/16/18 05:17 Urine Urobilinogen 2.0 mg/dL (Normal) H 04/16/18 05:17 Ur Leukocyte Esterase Moderate (Negative) H 04/16/18 05:17 Urine Microscopic WBC 3-5 per hpf (0-3) H 04/16/18 05:17 Ur Squamous Epith Cells Many per lpf (None-Few) H 04/16/18 05:17 Ur Culture Indicated? NO. (NO) A 04/16/18 05:17 - Microbiology Findings Microbiology Findings: Microbiology, Last 48 Hours 04/28/18 06:50 Blood Culture - Preliminary Peripheral Venipuncture Culture is incubating and being continuously monitored for growth. Final report to follow. 04/28/18 06:44 Blood Culture - Preliminary Peripheral Venipuncture Culture is incubating and being continuously monitored for growth. Final report to follow. - Clinical Findings Intake & Output: Intake & Output 04/27/18 04/28/18 04/28/18 23:59 07:59 15:59 Intake Total 2240 / 2240 1000 / 1000 Output Total 0 / 0 0 / 0 Balance 2240 / 2240 1000 / 1000 Weight 65.6 kg
[2018-04-28] MEDS ORDERED: 0.9 % Sodium Chloride 1,000 ML ONE (11:08)
[2018-04-28 11:45] LABS: Magnesium 1.8 mg/dL (1.6-2.6); Phosphorous 4.5 mg/dL (2.7-4.5); Potassium 5.7 mEq/L (3.5-5.1)
[2018-04-28] MEDS: Norepinephrine 4 MG in D5% in Water 250 ML IVC SCH ×3 (11:59→18:26)
--- NOTE | 2018-04-28 12:58 | Palliative Progress Note ---
Date of Encounter: 04/28/18 Time of Encounter: 11:45 - Assessment and plan (1) Abdominal pain Current Visit: Yes Status: Acute Assessment and plan: Currently has Percocet in place for pain and has utilized x2 last 24 hours. Will transition to low dose IV Fentanyl and avoid po route for now until further evaluation. Qualifiers: Qualified Code(s): R10.31 - Right lower quadrant pain (2) Anxiety about health Current Visit: Yes Status: Acute Assessment and plan: Has low dose SL Lorazepam concentrate if needed. Monitor (3) Advance care planning Current Visit: Yes Status: Acute Assessment and plan: Patient is alert and can still participate in decision making. She appears critical. Family is here and aware of her situation. I met with her children, including JANA Frankel (daughter). They are awaiting surgical input. Not sure if she is candidate for further intervention. Will continue to follow closely and assist as needed. If she continues to decline, and no further surgical intervention pursued, she would be candidate to transition to general in hospice. (4) Colonic mass Current Visit: Yes Status: Acute (5) Peritoneal carcinomatosis Current Visit: Yes Status: Acute (6) Bowel obstruction Current Visit: Yes Status: Acute Qualifiers: Qualified Code(s): K56.609 - Unspecified intestinal obstruction, unspecified as to partial versus complete obstruction - Time Spent With Patient Total time spent is greater than 50% in coordination of care (as documented) at patient's floor/unit and/or counseling patient: - Subjective Interval history: Recalled to see this patient - I had previously signed off after pt had surgery successfully and had started a diet and prepared to go to rehab. Yesterday, pt developed hypotension, not improved with fluid resuscitation, abdominal distention, and decline in renal function. Her family states that she was not eating well, stating she "felt full". CT abd was obtained and demonstrated pneumoperitoneum witih moderate ascites and perforated viscus. Hypotension persisted, and she was transferred to intensive care. Currently awaiting surgical input. Discussion was held with pt and she did not desire intubation/ resuscitation in the event she would continue to deteriorate. - Constitutional Vitals: Abnormal lab results WBC 12.1 K/mcL (4.3-11.1) H 04/28/18 06:50 Hgb 9.2 g/dL (11.5-15.4) L 04/28/18 06:50 Hct 31.1 % (35.3-44.9) L 04/28/18 06:50 MCV 63.3 fL (83.0-100.0) L 04/28/18 06:50 MCH 18.7 pg (28.0-33.3) L 04/28/18 06:50 MCHC 29.6 g/dL (31.6-35.5) L 04/28/18 06:50 RDW 27.0 % (11.5-14.5) H 04/28/18 06:50 Plt Count 410 K/mcL (140-400) H 04/28/18 06:50 MPV 9.0 fL (9.4-12.4) L 04/28/18 06:50 Neutrophils # 11.1 K/mcL (1.6-8.9) H 04/28/18 06:50 Nucleated RBCs/100 WBC 0.4 /100 WBC (0) H 04/28/18 06:50 Hyposegmented Neuts Present (Not Present) A 04/18/18 06:29 Platelet Estimate Increased (Normal) H 04/28/18 06:50 Polychromasia 2+ (Not Present) A 04/27/18 03:35 Hypochromasia Present (Not Present) A 04/28/18 06:50 Poikilocytosis 1+ (Not Present) A 04/28/18 06:50 Basophilic Stippling 1+ (Not Present) A 04/20/18 03:45 Anisocytosis 2+ (Not Present) A 04/28/18 06:50 Microcytosis Present (Not Present) A 04/28/18 06:50 Macrocytosis Present (Not Present) A 04/22/18 04:00 Tear Drop Cells 1+ (Not Present) A 04/22/18 04:00 Ovalocytes 1+ (Not Present) A 04/22/18 04:00 Acanthocytes (Spur) 1+ (Not Present) A 04/22/18 04:00 Haptoglobin 293 mg/dL (30-200) H 04/15/18 19:51 PT 13.5 Seconds (9.4-12.1) H 04/15/18 19:51 Sodium 132 mEq/L (136-145) L 04/28/18 11:00 Potassium 5.7 mEq/L (3.5-5.1) H 04/28/18 11:00 Carbon Dioxide 16 mEq/L (23-29) L 04/28/18 11:00 BUN 55 mg/dL (8-23) H 04/28/18 11:00 Creatinine 2.22 mg/dL (0.60-1.20) H 04/28/18 11:00 Est GFR ( Amer) 26 (> 60) L 04/28/18 11:00 Est GFR (Non-Af Amer) 22 (> 60) L 04/28/18 11:00 Calcium 7.0 mg/dL (8.6-10.3) L 04/28/18 11:00 Serum Total Protein 4.2 g/dL (6.4-8.9) L 04/28/18 06:50 Albumin 2.0 g/dL (3.5-5.7) L 04/28/18 06:50 Globulin 2.2 g/dL (2.4-3.5) L 04/28/18 06:50 Albumin/Globulin Ratio 0.9 (1.1-2.2) L 04/28/18 06:50 Prealbumin 3.4 mg/dL (17.0-34.0) L 04/23/18 03:50 Vitamin B12 1339 pg/mL (250-1100) H 04/23/18 03:50 Ur Specific [place] 1.027 (1.010-1.025) H 04/16/18 05:17 Urine Ketones 40 mg/dL (Negative) H 04/16/18 05:17 Urine Urobilinogen 2.0 mg/dL (Normal) H 04/16/18 05:17 Ur Leukocyte Esterase Moderate (Negative) H 04/16/18 05:17 Urine Microscopic WBC 3-5 per hpf (0-3) H 04/16/18 05:17 Ur Squamous Epith Cells Many per lpf (None-Few) H 04/16/18 05:17 Ur Culture Indicated? NO. (NO) A 04/16/18 05:17 General appearance: Present: no acute distress - Respiratory Respiratory exam: Present: decreased breath sounds, CTAB - Cardiovascular Cardiovascular exam: Present: +S1, +S2, tachycardia - GI/Abdominal GI/Abdominal exam: Present: diminished bowel sounds, distended, firm, tenderness - Extremities Exam Additional comments: generalized edema - Neurological Exam Neurological exam: Present: alert, oriented X3, strengths equal and symetr throughout - Skin Skin exam: Present: dry, pallor, warm Palliative Quality Palliative Quality: Screen for Code Status: Yes, Screen for Goals of Care: Yes, Screen for Pain: Yes, If Pain Regimen Started, Initiate Bowel Regimen: NA, Screen for Nausea/Vomitting: Yes Code Status: 04/19/18 13:59 DNR [Resuscitation Status: Active] [RES] Routine Comment: Resuscitation Status: DNR-Comfort Care 04/20/18 09:04 DNR [Resuscitation Status: Active] [RES] Routine Comment: Resuscitation Status: DNR-Comfort Care-Arrest 04/28/18 09:17 CODE [Resuscitation Status: Active] [RES] Routine Comment: Resuscitation Status: [id number] - Labs CBC & Chem 7: 04/28/18 06:50 04/28/18 11:00 Labs: Laboratory Results - last 24 hr 04/28/18 04/28/18 04/28/18 03:01 06:50 06:50 WBC 12.1 H RBC 4.91 Hgb 9.2 L Hct 31.1 L MCV 63.3 L MCH 18.7 L MCHC 29.6 L RDW 27.0 H Plt Count 410 H MPV 9.0 L Immature Gran % 0.6 Seg Neutrophils % 92.1 Lymphocytes % 4.9 Monocytes % 2.2 Eosinophils % 0.0 Basophils % 0.2 Neutrophils # 11.1 H Lymphocytes # 0.6 Monocytes # 0.3 Eosinophils # 0.0 Basophils # 0.0 Nucleated RBCs/100 WBC 0.4 H Platelet Estimate Increased H Hypochromasia Present A Poikilocytosis 1+ A Anisocytosis 2+ A Microcytosis Present A Sodium Potassium Chloride Carbon Dioxide BUN Creatinine Est GFR ( Amer) Est GFR (Non-Af Amer) BUN/Creatinine Ratio Glucose POC Glucose 69 L Calculated Osmolality Lactic Acid 1.8 Calcium Phosphorus Magnesium Total Bilirubin AST ALT Alkaline Phosphatase Creatine Kinase Serum Total Protein Albumin Globulin Albumin/Globulin Ratio Random Cortisol 04/28/18 04/28/18 04/28/18 06:50 08:47 09:32 WBC RBC Hgb Hct MCV MCH MCHC RDW Plt Count MPV Immature Gran % Seg Neutrophils % Lymphocytes % Monocytes % Eosinophils % Basophils % Neutrophils # Lymphocytes # Monocytes # Eosinophils # Basophils # Nucleated RBCs/100 WBC Platelet Estimate Hypochromasia Poikilocytosis Anisocytosis Microcytosis Sodium 132 L Potassium 5.2 H Chloride 106 Carbon Dioxide 15 L BUN 52 H Creatinine 2.08 H Est GFR ( Amer) 28 L Est GFR (Non-Af Amer) 23 L BUN/Creatinine Ratio 25 Glucose 70 POC Glucose 58 L 117 H Calculated Osmolality 286 Lactic Acid Calcium 7.3 L Phosphorus Magnesium Total Bilirubin 0.6 AST 20 ALT 8 Alkaline Phosphatase 64 Creatine Kinase Serum Total Protein 4.2 L Albumin 2.0 L Globulin 2.2 L Albumin/Globulin Ratio 0.9 L Random Cortisol 04/28/18 04/28/18 04/28/18 11:00 11:00 11:00 WBC RBC Hgb Hct MCV MCH MCHC RDW Plt Count MPV Immature Gran % Seg Neutrophils % Lymphocytes % Monocytes % Eosinophils % Basophils % Neutrophils # Lymphocytes # Monocytes # Eosinophils # Basophils # Nucleated RBCs/100 WBC Platelet Estimate Hypochromasia Poikilocytosis Anisocytosis Microcytosis Sodium 132 L Potassium 5.7 H Chloride 106 Carbon Dioxide 16 L BUN 55 H Creatinine 2.22 H Est GFR ( Amer) 26 L Est GFR (Non-Af Amer) 22 L BUN/Creatinine Ratio 25 Glucose 85 POC Glucose Calculated Osmolality 288 Lactic Acid Calcium 7.0 L Phosphorus 4.5 Magnesium 1.8 Total Bilirubin AST ALT Alkaline Phosphatase Creatine Kinase 117 Serum Total Protein Albumin Globulin Albumin/Globulin Ratio Random Cortisol > 60.0 04/28/18 11:38 WBC RBC Hgb Hct MCV MCH MCHC RDW Plt Count MPV Immature Gran % Seg Neutrophils % Lymphocytes % Monocytes % Eosinophils % Basophils % Neutrophils # Lymphocytes # Monocytes # Eosinophils # Basophils # Nucleated RBCs/100 WBC Platelet Estimate Hypochromasia Poikilocytosis Anisocytosis Microcytosis Sodium Potassium Chloride Carbon Dioxide BUN Creatinine Est GFR ( Amer) Est GFR (Non-Af Amer) BUN/Creatinine Ratio Glucose POC Glucose 85 Calculated Osmolality Lactic Acid Calcium Phosphorus Magnesium Total Bilirubin AST ALT Alkaline Phosphatase Creatine Kinase Serum Total Protein Albumin Globulin Albumin/Globulin Ratio Random Cortisol - Impressions Impressions Abdomen/Pelvis CT 04/28/18 03:09 IMPRESSION: Moderate volume pneumoperitoneum with moderate volume abdominal ascites and peritoneal enhancement presumably reflects sequela of perforated viscus relating to treatment of colonic mass (although no discrete mucosal defect identified). Peritoneal enhancement suggests superinfection of peritoneal fluid. Interval decrease in size of infiltrating colonic mass and some of the peritoneal nodules suggests positive treatment response. Features of volume overload, including abdominal ascites, bilateral effusions and diffuse soft tissue anasarca. D/ / 04/28/2018 07:26:01 Binu Gilliam / kaitlin Interpreting Provider: Binu Gilliam Chest X-Ray 04/28/18 08:32 IMPRESSION: Low lung volumes with bibasilar atelectasis and/or consolidation. Small bilateral effusions seen on recent CT are not well visualized on this exam. Stable appearance of pneumoperitoneum and pneumomediastinum. D/ / Brigido Belcher MD / Brigido Belcher MD Interpreting Provider: Brigido Belcher MD - ABG Interpretation ABG results: PT/INR, D-dimer PT 13.5 Seconds (9.4-12.1) H 04/15/18 19:51 Consult Discharge Plan - Plan Referrals: Lizz Ariza CNP [Primary Care Provider] - Sandeep Singh Jr, MD [Family Provider] - Luisito Pedroza MD [Partnered Physician] - 05/04/18 9:00 am Prescriptions: OxyCODONE/APAP 10/325 [Percocet 10/325 MG] 1 each PO Q8HR PRN 3 Days #9 tablet PRN Reason: MILD TO MODERATE
--- NOTE | 2018-04-28 14:29 | General Surgery Progress Note ---
<Irene Spencer - Last Filed: 04/28/18 15:20> Date of Encounter: 04/28/18 Time of Encounter: 02:00 - Assessment and Plan (1) Colon cancer metastasized to multiple sites Current Visit: Yes Status: Acute New diagnosis of colon cancer with diffuse mets. POD 8 of palliative iliocolonic bypass for bowel obstruction due to mass whose hospital stay has been complicated by delay in return of bowel function. Currently signs of functioning bypass with flatus and bowel movements. 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 The pnuemoperitonum may be related to surgical procedure; clinical abdomen is not acute thus unlikely to be perforated viscus. May expect IV fluids to pool in cancerous tissues leading to increased abdominal distension. - We do not object to enemas if necessary in treatment of hyperkalemia. - would suggest placement of NG only with vomiting or intolerable nausea - agree with IV abx of zosyn and micafungin - serial abdominal exams - continue to encourage patient to allow pain management No surgical intervention planned as no procedure would change her clinical course. Our goal is to maximize her for palliative care, we would support transfer out of ICU to palliative floor if no improvement with in 48-72 hours. (2) Bowel obstruction Current Visit: Yes Status: Acute see above Qualifiers: Intestinal obstruction type: unspecified Intestinal obstruction extent: unspecified extent Qualified Code(s): K56.609 - Unspecified intestinal obstruction, unspecified as to partial versus complete obstruction (3) Anemia Current Visit: Yes Status: Acute HgB 8.7 from 8.8; stable but transfuse per ICU team Qualifiers: Anemia type: iron deficiency Iron deficiency anemia type: chronic blood loss Qualified Code(s): D50.0 - Iron deficiency anemia secondary to blood loss (chronic) (4) Moderate protein-calorie malnutrition Current Visit: Yes Status: Acute NPO; Nutrition has been following. TPN has been considered during this admit and we will deffer plan to ICU team. (5) Advance care planning Current Visit: Yes Status: Acute Family conversation lead by Dr Loving with patient, ICU team, and POA daughter Marlys (also present patient's brother and sister) confirmed goals of care to be palliative comfort care. Patient has chosen not to undergo chemotherapy. She wants to avoid surgery when possible and is especially opposed to ostomy. Our united goal is to help the patient return home and decrease her discomfort. Subjective Patient reports: still having pain (increased on right side abdomen), flatus, shortness of breath, other Narrative: 77 y/o female POD 8 of palliative iliocolonic bypass was transferred to ICU today for shortness of breath and hypotension after failed treatment with IVF. She has found to have pneumoperitoneum on CT. She complains of increased right sided abdominal pain. She continues to minimize symptoms and denies shortness of breath, dizziness, lightheaded or confusion. Objective Vital Signs - Last 8 Hours Temp Pulse Resp BP Pulse Ox 04/28/18 14:00 86 26 76/61 95 04/28/18 13:00 87 28 64/39 95 04/28/18 12:00 97.5 F L 87 28 78/60 95 04/28/18 11:00 88 28 72/58 93 04/28/18 09:33 86 04/28/18 06:45 98.5 F 91 25 76/50 95 Intake and Output 04/27/18 04/28/18 04/28/18 23:59 07:59 15:59 Intake Total 2240 / 2240 1000 / 1000 600 / 600 Output Total 0 / 0 0 / 0 200 / 200 Balance 2240 / 2240 1000 / 1000 400 / 400 Intake: IV Fluids 2000 / 2000 1000 / 1000 600 / 600 0.9 % Sodium Chloride 1,000 ML 1000 / 1000 @ 3750 mls/hr IVC .Q16M ONE Rx# :[id number] ALBURX 5% 12.5 gm In 250 ml @ 500 / 500 250 mls/hr IVC .Q1H [facility] Rx#: [id number] Lactated Ringers 1,000 ML @ 100 2000 / 2000 mls/hr IVC .Q10H [facility] Rx#: [id number] Zosyn 3.375 GM In 0.9 % Sodium 100 / 100 Chloride (Mini-Bag +) 100 ML @ 25 mls/hr IVPB Q8H [facility] Rx#: [id number] Oral 240 / 240 0 / 0 Output: Urine 0 / 0 0 / 0 Catheter 200 / 200 Other: Meal Dinner Percent of Meal Consumed 0% Stool Size Smear Weight 65.6 kg Blood Glucose* 69 85 Patient Weight 04/28/18 23:59 Weight 65.6 kg - General physical appearance well developed, cachectic - Eyes normal ocular movement - ENT normal pinna, normal nares, no hearing loss - Respiratory normal expansion (increased respiratory effort) wheezing: bilateral - Cardiovascular Cardiovascular exam: Present: RRR, no murmurs/rubs/gallops (radial pulses faint) - Abdomen Abdomen: Present: tympanic, distended (worse than 2 days ago), tender. Absent: bowel sounds present, guarding, rebound Abdominal Tenderness: RLQ (mild to moderate) - Incision Incision: Present: intact, approximated. Absent: red, inflamed - Integumentary no rash, no growths, no abnormal pigmentation - Neurologic CN 2-12 grossly intact, normal coordination, normal sensation - Musculoskeletal normal posture, other (weak movements) - Psychiatric oriented to time, oriented to person, oriented to place, memory intact, other ( slowed speech with pauses for respiratory effort) - Labs 04/28/18 06:50 04/28/18 11:00 Diabetes panel 04/28/18 04/28/18 Range/Units 06:50 11:00 Sodium 132 L 132 L (136-145) mEq/L Potassium 5.2 H 5.7 H (3.5-5.1) mEq/L Chloride 106 106 (98-107) mEq/L Carbon Dioxide 15 L 16 L (23-29) mEq/L BUN 52 H 55 H (8-23) mg/dL Creatinine 2.08 H 2.22 H (0.60-1.20) mg/dL Glucose 70 85 (70-105) mg/dL Calcium 7.3 L 7.0 L (8.6-10.3) mg/dL AST 20 (13-39) Units/L ALT 8 (7-52) Units/L Alkaline Phosphatase 64 (34-104) Units/L Albumin 2.0 L (3.5-5.7) g/dL Calcium panel 04/28/18 04/28/18 Range/Units 06:50 11:00 Calcium 7.3 L 7.0 L (8.6-10.3) mg/dL Phosphorus 4.5 (2.7-4.5) mg/dL Albumin 2.0 L (3.5-5.7) g/dL Pituitary panel 04/28/18 04/28/18 Range/Units 06:50 11:00 Sodium 132 L 132 L (136-145) mEq/L Potassium 5.2 H 5.7 H (3.5-5.1) mEq/L Chloride 106 106 (98-107) mEq/L Carbon Dioxide 15 L 16 L (23-29) mEq/L BUN 52 H 55 H (8-23) mg/dL Creatinine 2.08 H 2.22 H (0.60-1.20) mg/dL Glucose 70 85 (70-105) mg/dL Calcium 7.3 L 7.0 L (8.6-10.3) mg/dL Adrenal panel 04/28/18 04/28/18 Range/Units 06:50 11:00 Sodium 132 L 132 L (136-145) mEq/L Potassium 5.2 H 5.7 H (3.5-5.1) mEq/L Chloride 106 106 (98-107) mEq/L Carbon Dioxide 15 L 16 L (23-29) mEq/L BUN 52 H 55 H (8-23) mg/dL Creatinine 2.08 H 2.22 H (0.60-1.20) mg/dL Glucose 70 85 (70-105) mg/dL Calcium 7.3 L 7.0 L (8.6-10.3) mg/dL Total Bilirubin 0.6 (0.3-1.0) mg/dL AST 20 (13-39) Units/L ALT 8 (7-52) Units/L Alkaline Phosphatase 64 (34-104) Units/L Albumin 2.0 L (3.5-5.7) g/dL - VTE Documentation of Mechanical Device: Graduated compression elastic hosiery Consult Discharge Plan - Plan Referrals: Lizz Ariza CNP [Primary Care Provider] - Sandeep Singh Jr, MD [Family Provider] - Luisito Pedroza MD [Partnered Physician] - 05/04/18 9:00 am Prescriptions: OxyCODONE/APAP 10/325 [Percocet 10/325 MG] 1 each PO Q8HR PRN 3 Days #9 tablet PRN Reason: MILD TO MODERATE <Ammon Loving - Last Filed: 04/28/18 16:40> Date of Encounter: 04/28/18 - Assessment and Plan (1) Colon cancer metastasized to multiple sites Current Visit: Yes Status: Acute Objective Vital Signs - Last 8 Hours Temp Pulse Resp BP Pulse Ox 04/28/18 15:30 90 26 94/69 96 04/28/18 14:00 86 26 76/61 95 04/28/18 13:00 87 28 64/39 95 04/28/18 12:00 97.5 F L 87 28 78/60 95 04/28/18 11:00 88 28 72/58 93 04/28/18 09:33 86 Intake and Output 04/28/18 04/28/18 04/28/18 07:59 15:59 23:59 Intake Total 1000 / 1000 600 / 600 Output Total 0 / 0 200 / 200 Balance 1000 / 1000 400 / 400 Intake: IV Fluids 1000 / 1000 600 / 600 0.9 % Sodium Chloride 1,000 ML 1000 / 1000 @ 3750 mls/hr IVC .Q16M ONE Rx# :[id number] ALBURX 5% 12.5 gm In 250 ml @ 500 / 500 250 mls/hr IVC .Q1H [facility] Rx#: [id number] Zosyn 3.375 GM In 0.9 % Sodium 100 / 100 Chloride (Mini-Bag +) 100 ML @ 25 mls/hr IVPB Q8H [facility] Rx#: [id number] Oral 0 / 0 Output: Urine 0 / 0 Catheter 200 / 200 Other: Stool Size Smear Weight 65.6 kg Blood Glucose* 69 85 Patient Weight 04/28/18 23:59 Weight 65.6 kg - Labs 04/28/18 06:50 04/28/18 11:00 Diabetes panel 04/28/18 04/28/18 Range/Units 06:50 11:00 Sodium 132 L 132 L (136-145) mEq/L Potassium 5.2 H 5.7 H (3.5-5.1) mEq/L Chloride 106 106 (98-107) mEq/L Carbon Dioxide 15 L 16 L (23-29) mEq/L BUN 52 H 55 H (8-23) mg/dL Creatinine 2.08 H 2.22 H (0.60-1.20) mg/dL Glucose 70 85 (70-105) mg/dL Calcium 7.3 L 7.0 L (8.6-10.3) mg/dL AST 20 (13-39) Units/L ALT 8 (7-52) Units/L Alkaline Phosphatase 64 (34-104) Units/L Albumin 2.0 L (3.5-5.7) g/dL Calcium panel 04/28/18 04/28/18 Range/Units 06:50 11:00 Calcium 7.3 L 7.0 L (8.6-10.3) mg/dL Phosphorus 4.5 (2.7-4.5) mg/dL Albumin 2.0 L (3.5-5.7) g/dL Pituitary panel 04/28/18 04/28/18 Range/Units 06:50 11:00 Sodium 132 L 132 L (136-145) mEq/L Potassium 5.2 H 5.7 H (3.5-5.1) mEq/L Chloride 106 106 (98-107) mEq/L Carbon Dioxide 15 L 16 L (23-29) mEq/L BUN 52 H 55 H (8-23) mg/dL Creatinine 2.08 H 2.22 H (0.60-1.20) mg/dL Glucose 70 85 (70-105) mg/dL Calcium 7.3 L 7.0 L (8.6-10.3) mg/dL Adrenal panel 04/28/18 04/28/18 Range/Units 06:50 11:00 Sodium 132 L 132 L (136-145) mEq/L Potassium 5.2 H 5.7 H (3.5-5.1) mEq/L Chloride 106 106 (98-107) mEq/L Carbon Dioxide 15 L 16 L (23-29) mEq/L BUN 52 H 55 H (8-23) mg/dL Creatinine 2.08 H 2.22 H (0.60-1.20) mg/dL Glucose 70 85 (70-105) mg/dL Calcium 7.3 L 7.0 L (8.6-10.3) mg/dL Total Bilirubin 0.6 (0.3-1.0) mg/dL AST 20 (13-39) Units/L ALT 8 (7-52) Units/L Alkaline Phosphatase 64 (34-104) Units/L Albumin 2.0 L (3.5-5.7) g/dL - Attending Attestation I examined this patient and my medical decision-making was reviewed with the Resident Physician. I agree with the documented findings, disposition and treatment plan as described except to the extent set forth below. The patient is seen and evaluated in the intensive care unit with the resident and with the clinical nurse practitioner. I also had members of the ICU team with me on rounds. The patient's abdomen demonstrates no evidence of guarding or rebound. She does have a distended and tense abdomen. On CAT scan she has recurrent ascites as well as some free air. The free air may be related to her previous laparotomy, however, leak from the anastomosis is always a possibility. She has malignant ascites and carcinomatosis. She is currently on pressor agents and receiving fluid boluses. I do not believe that any surgical intervention would change her outcome or impact her course. I believe that the patient and the family are coming to the realization that the patient will not survive very long and as a surgical team we will try to take every action to make her more comfortable. I had a 15-20 minute meeting with the patient and family Ammon Loving MD FACS
[2018-04-28] MEDS: *HR* FentaNYL (PF) 100 MCG/2 ML VIAL IVP PRN ×2 (15:50→22:01)
[2018-04-28] MEDS ORDERED: Insulin Human Regular 10 UNIT in 0.9 % Sodium Chloride 10 ML IV ONE (16:03)
[2018-04-28] MEDS: Albumin 25% 25gram/100mL 25 GM/100 ML IV.SOLN IVC SCH ×2 (16:28→18:12)
[2018-04-28] MEDS ORDERED: *HR* LORazepam 2 MG/ML VIAL IVP PRN (16:45)
[2018-04-28] MEDS: Sodium Bicarbonate 150 MEQ in D5% in Water 1,000 ML IVC SCH ×2 (17:37→18:10)
[2018-04-28 18:07] LABS: VBG HCO3 17 mEq/L (21-27); VBG PCO2 46 mmHg (41-51); VBG PH 7.18 pH Units (7.32-7.42); VBG PO2 50 mmHg (25-50)
[2018-04-28] MEDS: Mirtazapine 15 MG TABLET PO SCH (20:16)
[2018-04-28 20:22] LABS: Calcium 7.3 mg/dL (8.6-10.3); Potassium 5.7 mEq/L (3.5-5.1)
[2018-04-28] MEDS: Norepinephrine 8 MG in D5% in Water 500 ML IVC SCH (21:34)
[2018-04-28 21:55] LABS: Acinetobacter baumannii by PCR Not Detected (Not Detect); Candida albicans by PCR Not Detected (Not Detect); Candida glabrata by PCR Not Detected (Not Detect); Candida krusei by PCR Not Detected (Not Detect); Candida parapsilosis by PCR Not Detected (Not Detect); Candida tropicalis by PCR Not Detected (Not Detect); Enterobacter cloacae Cmplx PCR Not Detected (Not Detect); Enterobacteriaceae by PCR DETECTED (Not Detect); Enterococcus by PCR Not Detected (Not Detect); Escherichia coli by PCR DETECTED (Not Detect); Klebsiella oxytoca by PCR Not Detected (Not Detect); Klebsiella pneumoniae by PCR DETECTED (Not Detect); Proteus by PCR Not Detected (Not Detect); Pseudomonas aeruginosa by PCR Not Detected (Not Detect); Serratia marcescens by PCR Not Detected (Not Detect); Staphylococcus aureus by PCR Not Detected (Not Detect); Staphylococcus by PCR Not Detected (Not Detect); Streptococcus agalactiae(B)PCR Not Detected (Not Detect); Streptococcus by PCR Not Detected (Not Detect); Streptococcus pneumoniae PCR Not Detected (Not Detect); Streptococcus pyogenes (A) PCR Not Detected (Not Detect); blaKPC Carbapenem-Resist Gene Not Detected (Not Detect); mecA Methicillin-Resist Gene Not Detected (Not Detect); vanA/B Vancomycin-Resist Genes Not Detected (Not Detect)
[2018-04-28 23:55] LABS: Calcium 7.1 mg/dL (8.6-10.3); Potassium 5.5 mEq/L (3.5-5.1)
[2018-04-29] MEDS: *HR* FentaNYL (PF) 100 MCG/2 ML VIAL IVP PRN ×3 (00:18→07:45)
[2018-04-29] MEDS ORDERED: Piperacillin/Tazobactam 3.375 GM in 0.9 % Sodium Chloride Mini Bag 100 ML IVPB SCH (01:00)
[2018-04-29] MEDS: Norepinephrine 8 MG in D5% in Water 500 ML IVC SCH ×2 (02:59→08:40)
[2018-04-29 03:15] LABS: Hematocrit 28.7 % (35.3-44.9); Hemoglobin 8.5 g/dL (11.5-15.4); Mean Corpuscular HGB Conc 29.6 g/dL (31.6-35.5); Mean Corpuscular Hemoglobin 18.8 pg (28.0-33.3); Mean Corpuscular Volume 63.5 fL (83.0-100.0); Mean Platelet Volume 9.2 fL (9.4-12.4); Nucleated Red Blood Cells 0.6 /100 WBC (0); Platelet Count 335 K/mcL (140-400); Red Blood Count 4.52 M/mcL (3.82-4.97); Red Cell Distribution Width 26.9 % (11.5-14.5)
[2018-04-29 03:34] LABS: Calcium 6.9 mg/dL (8.6-10.3); Potassium 5.5 mEq/L (3.5-5.1)
[2018-04-29 03:45] LABS: Monocytes # 0.6 K/mcL (0.0-1.3); Neutrophils # 14.5 K/mcL (1.6-8.9); Toxic Granulation Present (Not Present)
[2018-04-29 03:46] LABS: Anisocytosis 1+ (Not Present); Burr Cells 1+ (Not Present); Microcytosis Present (Not Present)
[2018-04-29 03:47] LABS: Platelet Estimate Normal (Normal)
[2018-04-29] MEDS: *HR* Heparin 5,000 UNIT/ML VIAL SQ SCH (05:12)
[2018-04-29 07:03] LABS: VBG HCO3 15 mEq/L (21-27); VBG PCO2 35 mmHg (41-51); VBG PH 7.25 pH Units (7.32-7.42); VBG PO2 212 mmHg (25-50)
--- NOTE | 2018-04-29 07:15 | Pulmonology Progress Note ---
<Zander Mcdonald W - Last Filed: 04/29/18 08:57> Date of Encounter: 04/29/18 Objective PUL Vital signs: Last Vital Signs Temp 96.7 F L 04/29/18 03:47 Pulse 97 04/29/18 08:00 Resp 28 04/29/18 08:00 BP 92/54 04/29/18 08:00 Pulse Ox 90 04/29/18 08:00 Results - Laboratory Findings CBC and BMP: 04/29/18 02:58 04/29/18 02:58 PT/INR, D-dimer PT 13.5 Seconds (9.4-12.1) H 04/15/18 19:51 Abnormal lab findings: Abnormal lab results WBC 16.1 K/mcL (4.3-11.1) H 04/29/18 02:58 Hgb 8.5 g/dL (11.5-15.4) L 04/29/18 02:58 Hct 28.7 % (35.3-44.9) L 04/29/18 02:58 MCV 63.5 fL (83.0-100.0) L 04/29/18 02:58 MCH 18.8 pg (28.0-33.3) L 04/29/18 02:58 MCHC 29.6 g/dL (31.6-35.5) L 04/29/18 02:58 RDW 26.9 % (11.5-14.5) H 04/29/18 02:58 MPV 9.2 fL (9.4-12.4) L 04/29/18 02:58 Band Neutrophils % 6.0 % (0-4) H 04/29/18 02:58 Neutrophils # 14.5 K/mcL (1.6-8.9) H 04/29/18 02:58 Nucleated RBCs/100 WBC 0.6 /100 WBC (0) H 04/29/18 02:58 Hyposegmented Neuts Present (Not Present) A 04/18/18 06:29 Toxic Granulation Present (Not Present) A 04/29/18 02:58 Polychromasia 2+ (Not Present) A 04/27/18 03:35 Hypochromasia Present (Not Present) A 04/28/18 06:50 Poikilocytosis 1+ (Not Present) A 04/28/18 06:50 Basophilic Stippling 1+ (Not Present) A 04/20/18 03:45 Anisocytosis 1+ (Not Present) A 04/29/18 02:58 Microcytosis Present (Not Present) A 04/29/18 02:58 Macrocytosis Present (Not Present) A 04/22/18 04:00 Tear Drop Cells 1+ (Not Present) A 04/22/18 04:00 Ovalocytes 1+ (Not Present) A 04/22/18 04:00 Walden Cells 1+ (Not Present) A 04/29/18 02:58 Acanthocytes (Spur) 1+ (Not Present) A 04/22/18 04:00 Haptoglobin 293 mg/dL (30-200) H 04/15/18 19:51 PT 13.5 Seconds (9.4-12.1) H 04/15/18 19:51 VBG pH 7.25 pH Units (7.32-7.42) L 04/29/18 06:59 VBG pCO2 35 mmHg (41-51) L 04/29/18 06:59 VBG pO2 212 mmHg (25-50) H 04/29/18 06:59 VBG HCO3 15 mEq/L (21-27) L 04/29/18 06:59 Sodium 130 mEq/L (136-145) L 04/29/18 02:58 Potassium 5.5 mEq/L (3.5-5.1) H 04/29/18 02:58 Carbon Dioxide 14 mEq/L (23-29) L 04/29/18 02:58 BUN 59 mg/dL (8-23) H 04/29/18 02:58 Creatinine 2.22 mg/dL (0.60-1.20) H 04/29/18 02:58 Est GFR ( Amer) 26 (> 60) L 04/29/18 02:58 Est GFR (Non-Af Amer) 22 (> 60) L 04/29/18 02:58 BUN/Creatinine Ratio 27 (6-26) H 04/29/18 02:58 Glucose 126 mg/dL (70-105) H 04/29/18 02:58 POC Glucose 128 mg/dL (70-99) H 04/28/18 23:29 Calcium 6.9 mg/dL (8.6-10.3) L 04/29/18 02:58 Serum Total Protein 4.2 g/dL (6.4-8.9) L 04/28/18 06:50 Albumin 2.0 g/dL (3.5-5.7) L 04/28/18 06:50 Globulin 2.2 g/dL (2.4-3.5) L 04/28/18 06:50 Albumin/Globulin Ratio 0.9 (1.1-2.2) L 04/28/18 06:50 Prealbumin 3.4 mg/dL (17.0-34.0) L 04/23/18 03:50 Vitamin B12 1339 pg/mL (250-1100) H 04/23/18 03:50 Ur Specific [place] 1.027 (1.010-1.025) H 04/16/18 05:17 Urine Ketones 40 mg/dL (Negative) H 04/16/18 05:17 Urine Urobilinogen 2.0 mg/dL (Normal) H 04/16/18 05:17 Ur Leukocyte Esterase Moderate (Negative) H 04/16/18 05:17 Urine Microscopic WBC 3-5 per hpf (0-3) H 04/16/18 05:17 Ur Squamous Epith Cells Many per lpf (None-Few) H 04/16/18 05:17 Ur Culture Indicated? NO. (NO) A 04/16/18 05:17 Enterobacteriac sp PCR DETECTED (Not Detect) A 04/28/18 06:44 E. coli (PCR) DETECTED (Not Detect) A 04/28/18 06:44 Klebsiella pneumoniae DETECTED (Not Detect) A 04/28/18 06:44 - Microbiology Findings Microbiology Findings: Microbiology, Last 48 Hours 04/28/18 06:50 Blood Culture - Preliminary Peripheral Venipuncture Gram Negative Carlito 04/28/18 06:44 Blood Culture - Preliminary Peripheral Venipuncture Gram Negative Carlito - Clinical Findings Intake & Output: Intake & Output 04/28/18 04/29/18 04/29/18 23:59 07:59 15:59 Intake Total 608 / 608 608 / 608 1658 / 1658 Output Total 50 / 50 Balance 588 / 588 558 / 558 1658 / 1658 Weight 69.48 kg Consult Discharge Plan - Plan Referrals: Lizz Ariza CNP [Primary Care Provider] - Sandeep Singh Jr, MD [Family Provider] - Luisito Pedroza MD [Partnered Physician] - 05/04/18 9:00 am Prescriptions: OxyCODONE/APAP 10/325 [Percocet 10/325 MG] 1 each PO Q8HR PRN 3 Days #9 tablet PRN Reason: MILD TO MODERATE - Attending Attestation I examined this patient and my medical decision-making was reviewed with the Resident Physician. I agree with the documented findings, disposition and treatment plan as described except to the extent set forth below. We independently had [id number] contact with the patient I spent 32min of Critical Care time with this patient. It involved decision making of high complexity to assess, manipulate, and support vital organ system failure and/or to prevent further life threatening deterioration of the patient' s condition. The time involved in the performance of separately reportable procedures was not counted toward critical care time. Patient seen and examined at bedside Labs, radiology, chart personally reviewed. Management was reviewed during multidisciplinary critical care rounds. Impression: 1. Septic Shock 2. Acute kidney injury with anuria likely secondary to acute tubular necrosis 3. Severe Metabolic Acidosis 4. Hyperkalemia 5. Metabolic Encephalopathy 6. Gram Negative Bacteremia s/t Intraabdominal Infection 7. Metastatic Cancer 8. Goals of Care Counseling Plan: In the last 24 hours patient's overall condition has deteriorated rapidly she has been maxed out on leave on bicarbonate infusion for acidosis worsening encephalopathy and now is obtunded her potassium continues to rise despite aggressive medical treatment she has refused dialysis prior to her encephalopathy refused and intubation and refused to cardiopulmonary resuscitation. I had an extensive conversation explaining with the family including her son and daughter at bedside to them that her diagnosis is terminal. The clearly articulated to me what their mother's wishes were this point would be to transition to a hospice setting they are pending the arrival of several family members and they want to focus on aggressive comfort measures. Appreciate palliative care also following with this patient and will make preparations for her demise I anticipate that with withdrawal of the aggressive measures that this would be very quick and likely in the ICU over the course of the day. The patient is unable or incompetent to participate in giving a history and/or making treatment decisions. The discussion was necessary for determining treatment decision. This discussion took place in the ICU. The total meeting time was 15 minutes <Armin Hernandez - Last Filed: 04/29/18 17:08> Date of Encounter: 04/29/18 Time of Encounter: 07:00 Assessment and Plan (1) Advance care planning Current Visit: Yes Status: Acute Patient's family at bedside, daughter is power of reconciliation accountant She wishes to stop the levophed once patient's family has arrived Patient does not wish to be resuscitated or intubated Palliative care on board Once levophed is stopped, patient will receive comfort care only (2) Severe sepsis Current Visit: Yes Status: Acute Patient hypotensive with MAP around 62, even with 30 of levophed CXR shows pneumomediastinum and pneumoperitoneum CT concerning for intra-abdominal infection 2/2 recent abdominal surgery WBC elevated 12.1 > 16.1 On Zosyn and micafungin Patient had significant decline in past 24 hours and is actively dying Family at bedside, wishes to stop levophed once rest of family has arrived Will only be comfort care at that time (3) Colon cancer metastasized to multiple sites Current Visit: Yes Status: Acute Colon cancer - adenocarcinoma on pathology CT shows metastatic mass causing obstruction, with mets to liver, peritoneum, and retroperitoneal lymph nodes Patient had iliocolonic bypass with Dr. Loving on 04/20/18 Patient being treated with IV fentanyl 25 mcgs every 2 hours for pain (4) Partial small bowel obstruction Current Visit: Yes Status: Acute Abdominal CT shows partial SBO CXR shows pneumoperitoneum Patient has abdominal distension No further surgical intervention at this time Patient is NPO (5) Acute renal failure (ARF) Current Visit: Yes Status: Acute Patient's Cr continues to rise Patient does not wish to have dialysis Patient will be comfort care only when levophed is stopped Qualifiers: Qualified Code(s): N17.9 - Acute kidney failure, unspecified (6) Ascites Current Visit: Yes Status: Acute Ascites was present prior to surgery Return of ascites indicated on CT Likely malignant Given 500 ml albumin yesterday for pressure support Patient comfort care only today Qualifiers: Ascites type: malignant Qualified Code(s): R18.0 - Malignant ascites (7) Acute respiratory failure with hypoxia Current Visit: Yes Status: Acute Patient' requiring increasing amount of supplemental oxygen via oxymask Not a good candidate for BIPAP due to abdominal distension and risk of vomiting Patient doesn't wish to be intubated Will only receive comfort care On IV fentanyl 25 mcgs [id number], can increase to provide comfortable breathing (8) Hyperkalemia Current Visit: Yes Status: Acute Patient's K no change at 5.5 Patient does not wish to have dialysis Held off on kayexalate overnight Patient will be comfort care only after levophed is stopped (9) Abdominal pain Current Visit: Yes Status: Acute Patient is only responsive to pain now She is currently on 25 mcgs IV fentanyl every 2 hours Qualifiers: Abdominal location: right lower quadrant Qualified Code(s): R10.31 - Right lower quadrant pain (10) Iron deficiency anemia due to chronic blood loss Current Visit: Yes Status: Acute Anemic since initial presentation, likely 2/2 colon cancer Hgb is stable Patient will be comfort care only once levophed is stopped (11) DVT prophylaxis Current Visit: Yes Status: Acute Subcutaneous heparin Subjective Principal diagnosis: Severe sepsis Interval history: Patient seen and examined this AM. She has declined significantly in the past 24 hours. Patient in only responsive to pain. She has moaning breath sounds. Her levophed was increased to 30 overnight. Family at bedside, they wish to discontinue the pressure support once the rest of her family has arrived. Objective PUL Vital signs: Last Vital Signs Temp 96.7 F L 04/29/18 03:47 Pulse 96 04/29/18 06:00 Resp 19 04/29/18 06:00 BP 95/64 04/29/18 06:00 Pulse Ox 96 04/29/18 06:00 General appearance: other (only responsive to pain) Eyes: nonicteric Effort: mildly labored Auscultation: bilateral: diminished breath sounds, rales Cardiovascular: regular rate and rhythm Gastrointestinal: normoactive bowel sounds, soft, other (distended) Integumentary: normal Extremities: no cyanosis, pulses normal, edema (of LE bilaterally) unable to assess due to mental status Results - Laboratory Findings CBC and BMP: 04/29/18 02:58 04/29/18 02:58 PT/INR, D-dimer PT 13.5 Seconds (9.4-12.1) H 04/15/18 19:51 Abnormal lab findings: Abnormal lab results WBC 16.1 K/mcL (4.3-11.1) H 04/29/18 02:58 Hgb 8.5 g/dL (11.5-15.4) L 04/29/18 02:58 Hct 28.7 % (35.3-44.9) L 04/29/18 02:58 MCV 63.5 fL (83.0-100.0) L 04/29/18 02:58 MCH 18.8 pg (28.0-33.3) L 04/29/18 02:58 MCHC 29.6 g/dL (31.6-35.5) L 04/29/18 02:58 RDW 26.9 % (11.5-14.5) H 04/29/18 02:58 MPV 9.2 fL (9.4-12.4) L 04/29/18 02:58 Band Neutrophils % 6.0 % (0-4) H 04/29/18 02:58 Neutrophils # 14.5 K/mcL (1.6-8.9) H 04/29/18 02:58 Nucleated RBCs/100 WBC 0.6 /100 WBC (0) H 04/29/18 02:58 Hyposegmented Neuts Present (Not Present) A 04/18/18 06:29 Toxic Granulation Present (Not Present) A 04/29/18 02:58 Polychromasia 2+ (Not Present) A 04/27/18 03:35 Hypochromasia Present (Not Present) A 04/28/18 06:50 Poikilocytosis 1+ (Not Present) A 04/28/18 06:50 Basophilic Stippling 1+ (Not Present) A 04/20/18 03:45 Anisocytosis 1+ (Not Present) A 04/29/18 02:58 Microcytosis Present (Not Present) A 04/29/18 02:58 Macrocytosis Present (Not Present) A 04/22/18 04:00 Tear Drop Cells 1+ (Not Present) A 04/22/18 04:00 Ovalocytes 1+ (Not Present) A 04/22/18 04:00 Walden Cells 1+ (Not Present) A 04/29/18 02:58 Acanthocytes (Spur) 1+ (Not Present) A 04/22/18 04:00 Haptoglobin 293 mg/dL (30-200) H 04/15/18 19:51 PT 13.5 Seconds (9.4-12.1) H 04/15/18 19:51 VBG pH 7.25 pH Units (7.32-7.42) L 04/29/18 06:59 VBG pCO2 35 mmHg (41-51) L 04/29/18 06:59 VBG pO2 212 mmHg (25-50) H 04/29/18 06:59 VBG HCO3 15 mEq/L (21-27) L 04/29/18 06:59 Sodium 130 mEq/L (136-145) L 04/29/18 02:58 Potassium 5.5 mEq/L (3.5-5.1) H 04/29/18 02:58 Carbon Dioxide 14 mEq/L (23-29) L 04/29/18 02:58 BUN 59 mg/dL (8-23) H 04/29/18 02:58 Creatinine 2.22 mg/dL (0.60-1.20) H 04/29/18 02:58 Est GFR ( Amer) 26 (> 60) L 04/29/18 02:58 Est GFR (Non-Af Amer) 22 (> 60) L 04/29/18 02:58 BUN/Creatinine Ratio 27 (6-26) H 04/29/18 02:58 Glucose 126 mg/dL (70-105) H 04/29/18 02:58 POC Glucose 128 mg/dL (70-99) H 04/28/18 23:29 Calcium 6.9 mg/dL (8.6-10.3) L 04/29/18 02:58 Serum Total Protein 4.2 g/dL (6.4-8.9) L 04/28/18 06:50 Albumin 2.0 g/dL (3.5-5.7) L 04/28/18 06:50 Globulin 2.2 g/dL (2.4-3.5) L 04/28/18 06:50 Albumin/Globulin Ratio 0.9 (1.1-2.2) L 04/28/18 06:50 Prealbumin 3.4 mg/dL (17.0-34.0) L 04/23/18 03:50 Vitamin B12 1339 pg/mL (250-1100) H 04/23/18 03:50 Ur Specific [place] 1.027 (1.010-1.025) H 04/16/18 05:17 Urine Ketones 40 mg/dL (Negative) H 04/16/18 05:17 Urine Urobilinogen 2.0 mg/dL (Normal) H 04/16/18 05:17 Ur Leukocyte Esterase Moderate (Negative) H 04/16/18 05:17 Urine Microscopic WBC 3-5 per hpf (0-3) H 04/16/18 05:17 Ur Squamous Epith Cells Many per lpf (None-Few) H 04/16/18 05:17 Ur Culture Indicated? NO. (NO) A 04/16/18 05:17 Enterobacteriac sp PCR DETECTED (Not Detect) A 04/28/18 06:44 E. coli (PCR) DETECTED (Not Detect) A 04/28/18 06:44 Klebsiella pneumoniae DETECTED (Not Detect) A 04/28/18 06:44 - Microbiology Findings Microbiology Findings: Microbiology, Last 48 Hours 04/28/18 06:50 Blood Culture - Preliminary Peripheral Venipuncture Gram Negative Carlito 04/28/18 06:44 Blood Culture - Preliminary Peripheral Venipuncture Gram Negative Carlito - Clinical Findings Intake & Output: Intake & Output 04/28/18 04/28/18 04/29/18 15:59 23:59 07:59 Intake Total 600 / 600 608 / 608 608 / 608 Output Total 200 / 200 20 / 20 50 / 50 Balance 400 / 400 588 / 588 558 / 558 Weight 65.6 kg 69.48 kg - VTE Documentation of Mechanical Device: Graduated compression elastic hosiery
[2018-04-29] MEDS: Sodium Bicarbonate 150 MEQ in D5% in Water 1,000 ML IVC SCH (08:39)
[2018-04-29] MEDS: Thiamine (B-1) 100 MG TABLET PO SCH (08:41)
[2018-04-29] MEDS ORDERED: Pantoprazole 40 MG VIAL IVP SCH (09:00)
[2018-04-29] MEDS: Micafungin 100 MG in 0.9 % Sodium Chloride Mini Bag 100 ML IVPB SCH (10:23)
[2018-04-29] MEDS ORDERED: *HR* FentaNYL (PF) 100 MCG/2 ML VIAL IVP PRN (10:27)
--- NOTE | 2018-04-29 10:39 | Palliative Progress Note ---
Date of Encounter: 04/29/18 Time of Encounter: 10:10 - Assessment and plan (1) Abdominal pain Current Visit: Yes Status: Acute Assessment and plan: Currently had Fentanyl 25 mcg inititated yesterday for discomfort. Increase abd distention today, pt with moaning respirations. Will increase to 50mcg and monitor. Qualifiers: Abdominal location: right lower quadrant Qualified Code(s): R10.31 - Right lower quadrant pain (2) Anxiety about health Current Visit: Yes Status: Acute Assessment and plan: Continue Lorazepam PRN. (3) Advance care planning Current Visit: Yes Status: Acute Assessment and plan: Family present at bedside and understand she is actively dying and may pass at any time. Awaiting other family to arrive before discontinuing Levophed. Do not suspect she may survive transfer out of the ICU. Composition Floor Layer Miguelito Cloud present. Provided emotional support. (4) Colonic mass Current Visit: Yes Status: Acute (5) Peritoneal carcinomatosis Current Visit: Yes Status: Acute (6) Bowel obstruction Current Visit: Yes Status: Acute Qualifiers: Intestinal obstruction type: unspecified Intestinal obstruction extent: unspecified extent Qualified Code(s): K56.609 - Unspecified intestinal obstruction, unspecified as to partial versus complete obstruction - Time Spent With Patient Total time spent is greater than 50% in coordination of care (as documented) at patient's floor/unit and/or counseling patient: - Subjective Interval history: Patient with continued deterioration over last 12 hours. She was alert enough last night to refuse addition of second vasopressor for continued hypotension. Family states she was still alert until approx 730 this am. Currently unresponsive, pale, with cheynes lloyd respirations. Family present at hospital and will desire to discontinue pressor support once further family arrives, but they are aware she is actively dying and could pass at any time. - Constitutional Vitals: Abnormal lab results WBC 16.1 K/mcL (4.3-11.1) H 04/29/18 02:58 Hgb 8.5 g/dL (11.5-15.4) L 04/29/18 02:58 Hct 28.7 % (35.3-44.9) L 04/29/18 02:58 MCV 63.5 fL (83.0-100.0) L 04/29/18 02:58 MCH 18.8 pg (28.0-33.3) L 04/29/18 02:58 MCHC 29.6 g/dL (31.6-35.5) L 04/29/18 02:58 RDW 26.9 % (11.5-14.5) H 04/29/18 02:58 MPV 9.2 fL (9.4-12.4) L 04/29/18 02:58 Band Neutrophils % 6.0 % (0-4) H 04/29/18 02:58 Neutrophils # 14.5 K/mcL (1.6-8.9) H 04/29/18 02:58 Nucleated RBCs/100 WBC 0.6 /100 WBC (0) H 04/29/18 02:58 Hyposegmented Neuts Present (Not Present) A 04/18/18 06:29 Toxic Granulation Present (Not Present) A 04/29/18 02:58 Polychromasia 2+ (Not Present) A 04/27/18 03:35 Hypochromasia Present (Not Present) A 04/28/18 06:50 Poikilocytosis 1+ (Not Present) A 04/28/18 06:50 Basophilic Stippling 1+ (Not Present) A 04/20/18 03:45 Anisocytosis 1+ (Not Present) A 04/29/18 02:58 Microcytosis Present (Not Present) A 04/29/18 02:58 Macrocytosis Present (Not Present) A 04/22/18 04:00 Tear Drop Cells 1+ (Not Present) A 04/22/18 04:00 Ovalocytes 1+ (Not Present) A 04/22/18 04:00 Farzaneh Cells 1+ (Not Present) A 04/29/18 02:58 Acanthocytes (Spur) 1+ (Not Present) A 04/22/18 04:00 Haptoglobin 293 mg/dL (30-200) H 04/15/18 19:51 PT 13.5 Seconds (9.4-12.1) H 04/15/18 19:51 VBG pH 7.25 pH Units (7.32-7.42) L 04/29/18 06:59 VBG pCO2 35 mmHg (41-51) L 04/29/18 06:59 VBG pO2 212 mmHg (25-50) H 04/29/18 06:59 VBG HCO3 15 mEq/L (21-27) L 04/29/18 06:59 Sodium 130 mEq/L (136-145) L 04/29/18 02:58 Potassium 5.5 mEq/L (3.5-5.1) H 04/29/18 02:58 Carbon Dioxide 14 mEq/L (23-29) L 04/29/18 02:58 BUN 59 mg/dL (8-23) H 04/29/18 02:58 Creatinine 2.22 mg/dL (0.60-1.20) H 04/29/18 02:58 Est GFR ( Amer) 26 (> 60) L 04/29/18 02:58 Est GFR (Non-Af Amer) 22 (> 60) L 04/29/18 02:58 BUN/Creatinine Ratio 27 (6-26) H 04/29/18 02:58 Glucose 126 mg/dL (70-105) H 04/29/18 02:58 POC Glucose 128 mg/dL (70-99) H 04/28/18 23:29 Calcium 6.9 mg/dL (8.6-10.3) L 04/29/18 02:58 Serum Total Protein 4.2 g/dL (6.4-8.9) L 04/28/18 06:50 Albumin 2.0 g/dL (3.5-5.7) L 04/28/18 06:50 Globulin 2.2 g/dL (2.4-3.5) L 04/28/18 06:50 Albumin/Globulin Ratio 0.9 (1.1-2.2) L 04/28/18 06:50 Prealbumin 3.4 mg/dL (17.0-34.0) L 04/23/18 03:50 Vitamin B12 1339 pg/mL (250-1100) H 04/23/18 03:50 Ur Specific Darwin 1.027 (1.010-1.025) H 04/16/18 05:17 Urine Ketones 40 mg/dL (Negative) H 04/16/18 05:17 Urine Urobilinogen 2.0 mg/dL (Normal) H 04/16/18 05:17 Ur Leukocyte Esterase Moderate (Negative) H 04/16/18 05:17 Urine Microscopic WBC 3-5 per hpf (0-3) H 04/16/18 05:17 Ur Squamous Epith Cells Many per lpf (None-Few) H 04/16/18 05:17 Ur Culture Indicated? NO. (NO) A 04/16/18 05:17 Enterobacteriac sp PCR DETECTED (Not Detect) A 04/28/18 06:44 E. coli (PCR) DETECTED (Not Detect) A 04/28/18 06:44 Klebsiella pneumoniae DETECTED (Not Detect) A 04/28/18 06:44 General appearance: Present: mild distress, thin - Respiratory Respiratory exam: Present: decreased breath sounds Additional comments: SHallow respiratory effort - Cardiovascular Cardiovascular exam: Present: +S1, +S2, tachycardia - GI/Abdominal GI/Abdominal exam: Present: diminished bowel sounds, distended, firm - Extremities Exam Additional comments: generalized edema to upper and lower extremities - Neurological Exam Additional comments: Unresponsive to verbal/tactile stimuli - Skin Skin exam: Present: dry, pallor, warm Palliative Quality Palliative Quality: Screen for Code Status: Yes, Screen for Goals of Care: Yes, Screen for Pain: Yes, If Pain Regimen Started, Initiate Bowel Regimen: NA, Screen for Nausea/Vomitting: Yes Code Status: 04/19/18 13:59 DNR [Resuscitation Status: Active] [RES] Routine Comment: Resuscitation Status: DNR-Comfort Care 04/20/18 09:04 DNR [Resuscitation Status: Active] [RES] Routine Comment: Resuscitation Status: DNR-Comfort Care-Arrest 04/28/18 09:17 CODE [Resuscitation Status: Active] [RES] Routine Comment: Resuscitation Status: [id number] - Labs CBC & Chem 7: 04/29/18 02:58 04/29/18 02:58 Labs: Laboratory Results - last 24 hr 04/28/18 04/28/18 04/28/18 06:44 11:00 11:00 WBC RBC Hgb Hct MCV MCH MCHC RDW Plt Count MPV Seg Neutrophils % Band Neutrophils % Lymphocytes % Monocytes % Neutrophils # Lymphocytes # Monocytes # Nucleated RBCs/100 WBC Toxic Granulation Platelet Estimate Anisocytosis Microcytosis [place] Cells VBG pH VBG pCO2 VBG pO2 VBG HCO3 Sodium Potassium Chloride Carbon Dioxide BUN Creatinine Est GFR ( Amer) Est GFR (Non-Af Amer) BUN/Creatinine Ratio Glucose POC Glucose Calculated Osmolality Calcium Phosphorus Magnesium Creatine Kinase 117 Random Cortisol > 60.0 A. baumannii (PCR) Not Detected Carmen albicans (PCR) Not Detected C. glabrata (PCR) Not Detected C. krusei (PCR) Not Detected C. parapsilosis (PCR) Not Detected C. tropicalis (PCR) Not Detected Enterobacteriac sp PCR DETECTED A E. cloacae complex PCR Not Detected Enterococcus sp PCR Not Detected E. coli (PCR) DETECTED A H. influenzae (PCR) Not Detected Klebsiella oxytoca PCR Not Detected Klebsiella pneumoniae DETECTED A List. monocytogenes PCR Not Detected N. meningitidis (PCR) Not Detected Proteus species (PCR) Not Detected Serratia marcescens PCR Not Detected Staphylococcus sp PCR Not Detected Staph aureus (PCR) Not Detected mecA-Methicil Res Gene Not Detected Streptococcus sp PCR Not Detected Group A Strep DNA Not Detected Group B Strep (PCR) Not Detected Strep pneumoniae (PCR) Not Detected P. aeruginosa (PCR) Not Detected Sandra/B-Vanco Res Genes Not Detected KPC (blaKPC) Detect PCR Not Detected Person Notif of Crit 04/28/18 04/28/18 04/28/18 11:00 11:38 14:45 WBC RBC Hgb Hct MCV MCH MCHC RDW Plt Count MPV Seg Neutrophils % Band Neutrophils % Lymphocytes % Monocytes % Neutrophils # Lymphocytes # Monocytes # Nucleated RBCs/100 WBC Toxic Granulation Platelet Estimate Anisocytosis Microcytosis Farzaneh Cells VBG pH VBG pCO2 VBG pO2 VBG HCO3 Sodium 132 L 132 L Potassium 5.7 H 5.7 H Chloride 106 105 Carbon Dioxide 16 L 15 L BUN 55 H 55 H Creatinine 2.22 H 2.28 H Est GFR ( Amer) 26 L 25 L Est GFR (Non-Af Amer) 22 L 21 L BUN/Creatinine Ratio 25 24 Glucose 85 82 POC Glucose 85 Calculated Osmolality 288 288 Calcium 7.0 L 7.3 L Phosphorus 4.5 Magnesium 1.8 Creatine Kinase Random Cortisol A. baumannii (PCR) Carmen albicans (PCR) C. glabrata (PCR) C. krusei (PCR) C. parapsilosis (PCR) C. tropicalis (PCR) Enterobacteriac sp PCR E. cloacae complex PCR Enterococcus sp PCR E. coli (PCR) H. influenzae (PCR) Klebsiella oxytoca PCR Klebsiella pneumoniae List. monocytogenes PCR N. meningitidis (PCR) Proteus species (PCR) Serratia marcescens PCR Staphylococcus sp PCR Staph aureus (PCR) mecA-Methicil Res Gene Streptococcus sp PCR Group A Strep DNA Group B Strep (PCR) Strep pneumoniae (PCR) P. aeruginosa (PCR) Sandra/B-Vanco Res Genes KPC (blaKPC) Detect PCR Person Notif of Crit 04/28/18 04/28/18 04/28/18 15:58 17:58 20:09 WBC RBC Hgb Hct MCV MCH MCHC RDW Plt Count MPV Seg Neutrophils % Band Neutrophils % Lymphocytes % Monocytes % Neutrophils # Lymphocytes # Monocytes # Nucleated RBCs/100 WBC Toxic Granulation Platelet Estimate Anisocytosis Microcytosis [place] Cells VBG pH 7.18 L* VBG pCO2 46 VBG pO2 50 VBG HCO3 17 L Sodium Potassium Chloride Carbon Dioxide BUN Creatinine Est GFR ( Amer) Est GFR (Non-Af Amer) BUN/Creatinine Ratio Glucose POC Glucose 86 117 H Calculated Osmolality Calcium Phosphorus Magnesium Creatine Kinase Random Cortisol A. baumannii (PCR) Carmen albicans (PCR) C. glabrata (PCR) C. krusei (PCR) C. parapsilosis (PCR) C. tropicalis (PCR) Enterobacteriac sp PCR E. cloacae complex PCR Enterococcus sp PCR E. coli (PCR) H. influenzae (PCR) Klebsiella oxytoca PCR Klebsiella pneumoniae List. monocytogenes PCR N. meningitidis (PCR) Proteus species (PCR) Serratia marcescens PCR Staphylococcus sp PCR Staph aureus (PCR) mecA-Methicil Res Gene Streptococcus sp PCR Group A Strep DNA Group B Strep (PCR) Strep pneumoniae (PCR) P. aeruginosa (PCR) Sandra/B-Vanco Res Genes KPC (blaKPC) Detect PCR Person Notif of Crit RADHA MAXWELLHAM 04/28/18 04/28/18 04/29/18 23:28 23:29 02:58 WBC RBC Hgb Hct MCV MCH MCHC RDW Plt Count MPV Seg Neutrophils % Band Neutrophils % Lymphocytes % Monocytes % Neutrophils # Lymphocytes # Monocytes # Nucleated RBCs/100 WBC Toxic Granulation Platelet Estimate Anisocytosis Microcytosis [place] Cells VBG pH VBG pCO2 VBG pO2 VBG HCO3 Sodium 130 L 130 L Potassium 5.5 H 5.5 H Chloride 102 102 Carbon Dioxide 16 L 14 L BUN 58 H 59 H Creatinine 2.22 H 2.22 H Est GFR ( Amer) 26 L 26 L Est GFR (Non-Af Amer) 22 L 22 L BUN/Creatinine Ratio 26 27 H Glucose 135 H 126 H POC Glucose 128 H Calculated Osmolality 288 288 Calcium 7.1 L 6.9 L Phosphorus Magnesium Creatine Kinase Random Cortisol A. baumannii (PCR) Carmen albicans (PCR) C. glabrata (PCR) C. krusei (PCR) C. parapsilosis (PCR) C. tropicalis (PCR) Enterobacteriac sp PCR E. cloacae complex PCR Enterococcus sp PCR E. coli (PCR) H. influenzae (PCR) Klebsiella oxytoca PCR Klebsiella pneumoniae List. monocytogenes PCR N. meningitidis (PCR) Proteus species (PCR) Serratia marcescens PCR Staphylococcus sp PCR Staph aureus (PCR) mecA-Methicil Res Gene Streptococcus sp PCR Group A Strep DNA Group B Strep (PCR) Strep pneumoniae (PCR) P. aeruginosa (PCR) Sandra/B-Vanco Res Genes KPC (blaKPC) Detect PCR Person Notif of Crit 04/29/18 04/29/18 04/29/18 02:58 02:58 06:59 WBC 16.1 H RBC 4.52 Hgb 8.5 L Hct 28.7 L MCV 63.5 L MCH 18.8 L MCHC 29.6 L RDW 26.9 H Plt Count 335 MPV 9.2 L Seg Neutrophils % 84.0 Band Neutrophils % 6.0 H Lymphocytes % 6.0 Monocytes % 4.0 Neutrophils # 14.5 H Lymphocytes # 1.0 Monocytes # 0.6 Nucleated RBCs/100 WBC 0.6 H Toxic Granulation Present A Platelet Estimate Normal Anisocytosis 1+ A Microcytosis Present A [place] Cells 1+ A VBG pH 7.25 L VBG pCO2 35 L VBG pO2 212 H VBG HCO3 15 L Sodium Potassium Chloride Carbon Dioxide BUN Creatinine Est GFR ( Amer) Est GFR (Non-Af Amer) BUN/Creatinine Ratio Glucose POC Glucose Calculated Osmolality Calcium Phosphorus Magnesium 1.8 Creatine Kinase Random Cortisol A. baumannii (PCR) Carmen albicans (PCR) C. glabrata (PCR) C. krusei (PCR) C. parapsilosis (PCR) C. tropicalis (PCR) Enterobacteriac sp PCR E. cloacae complex PCR Enterococcus sp PCR E. coli (PCR) H. influenzae (PCR) Klebsiella oxytoca PCR Klebsiella pneumoniae List. monocytogenes PCR N. meningitidis (PCR) Proteus species (PCR) Serratia marcescens PCR Staphylococcus sp PCR Staph aureus (PCR) mecA-Methicil Res Gene Streptococcus sp PCR Group A Strep DNA Group B Strep (PCR) Strep pneumoniae (PCR) P. aeruginosa (PCR) Sandra/B-Vanco Res Genes KPC (blaKPC) Detect PCR Person Notif of Crit - Impressions Impressions Abdomen/Pelvis CT 04/28/18 03:09 IMPRESSION: Moderate volume pneumoperitoneum seems out of proportion to that expected from recent surgery, raising a question of perforated viscus relating to treatment of colonic mass (although no discrete mucosal defect identified). Peritoneal enhancement suggests superinfection of peritoneal fluid. Interval decrease in size of infiltrating colonic mass and some of the peritoneal nodules suggests positive treatment response. Features of volume overload, including abdominal ascites, bilateral effusions and diffuse soft tissue anasarca. Dilated loops of large and small bowel, favor a reactive ileus. Critical results were called by Dr. Binu Gilliam to Gia Webster on 04/28/2018 at 4:29 a.m.. D/ / 04/28/2018 07:26:01 Binu Gilliam / kaitlin Interpreting Provider: Binu Gilliam - ABG Interpretation ABG results: PT/INR, D-dimer PT 13.5 Seconds (9.4-12.1) H 04/15/18 19:51 Consult Discharge Plan - Plan Referrals: Lizz Ariza CNP [Primary Care Provider] - Sandeep Singh Jr, MD [Family Provider] - Luisito Pedroza MD [Partnered Physician] - 05/04/18 9:00 am Prescriptions: OxyCODONE/APAP 10/325 [Percocet 10/325 MG] 1 each PO Q8HR PRN 3 Days #9 tablet PRN Reason: MILD TO MODERATE
--- NOTE | 2018-04-29 11:02 | General Surgery Progress Note ---
<Irene Spencer - Last Filed: 04/29/18 12:06> Date of Encounter: 04/29/18 Time of Encounter: 08:00 - Assessment and Plan (1) Colon cancer metastasized to multiple sites Current Visit: Yes Status: Acute New diagnosis of colon cancer with diffuse mets. POD 8 of palliative iliocolonic bypass for bowel obstruction due to mass whose hospital stay has been complicated by delay in return of bowel function. -pathology report indicated metastatic and moderately differentiated, mucinous type as expected Given patients rapid downturn we anticipate syndrome of impending demise. Our goal is to make her comfortable. Family is aware of her condition and agree to comfort care- all their questions were answered by Dr Loving. (2) Bowel obstruction Current Visit: Yes Status: Acute see above Qualifiers: Intestinal obstruction type: unspecified Intestinal obstruction extent: unspecified extent Qualified Code(s): K56.609 - Unspecified intestinal obstruction, unspecified as to partial versus complete obstruction (3) Moderate protein-calorie malnutrition Current Visit: Yes Status: Acute NPO; Nutrition has been following. TPN i sandra unlikely to change clinical course Subjective Patient reports: pain is less, afebrile, other Narrative: Ms Mayo is now only responsive to pain. ICU team has maxed out levophed and family requested no further pressors. Objective Vital Signs - Last 8 Hours Temp Pulse Resp BP Pulse Ox 04/29/18 10:00 100 30 98/62 91 04/29/18 09:00 97 28 95/55 91 04/29/18 08:00 97 28 92/54 90 04/29/18 07:51 97 04/29/18 07:00 96 26 86/52 93 04/29/18 06:00 96 19 95/64 96 04/29/18 05:00 98 22 99/59 97 04/29/18 03:47 96.7 F L 96 21 106/78 87 04/29/18 03:11 97 Intake and Output 04/28/18 04/29/18 04/29/18 23:59 07:59 15:59 Intake Total 608 / 608 608 / 608 1658 / 1658 Output Total 20 / 20 50 / 50 Balance 588 / 588 558 / 558 1658 / 1658 Intake: IV Fluids 608 / 608 608 / 608 1658 / 1658 Flexbumin 25 gm In 100 ml @ 60 100 / 100 mls/hr IVC .Q1H40M [facility] Rx#: [id number] Levophed 4 MG In Dextrose 5% 508 / 508 250 ML @ 0.5 MCG/MIN 1.9 mls/hr IVC CONT [facility] Rx#:[id number] Levophed 8 MG In Dextrose 5% 508 / 508 508 / 508 500 ML @ 0.5 MCG/MIN 1.9 mls/hr IVC CONT [facility] Rx#:[id number] Sodium Bicarbonate 150 MEQ In 1150 / 1150 Dextrose 5% 1,000 ML @ 75 mls/ hr IVC .[id number] [facility] Rx#: [id number] Zosyn 3.375 GM In 0.9 % Sodium 100 / 100 Chloride (Mini-Bag +) 100 ML @ 25 mls/hr IVPB Q12H [facility] Rx#: [id number] Oral 0 / 0 0 / 0 Output: Catheter 20 / 20 50 / 50 Other: Weight 69.48 kg Blood Glucose* 117 128 Patient Weight 04/29/18 23:59 Weight 69.48 kg - General physical appearance well developed, cachectic - Eyes loss of movement - ENT normal pinna, normal nares - Respiratory normal expansion (increased work of breathing, gasping) - Cardiovascular Cardiovascular exam: Present: RRR, no murmurs/rubs/gallops - Abdomen Abdomen: Present: bowel sounds present (deminished), soft, distended (same as yesterday) Abdominal Tenderness: RLQ Hernia: none - Incision Incision: Present: approximated. Absent: draining, inflamed - Integumentary no rash, no growths, no abnormal pigmentation - Psychiatric other - Labs 04/29/18 02:58 04/29/18 02:58 Diabetes panel 04/28/18 04/28/18 04/28/18 Range/Units 11:00 14:45 23:28 Sodium 132 L 132 L 130 L (136-145) mEq/L Potassium 5.7 H 5.7 H 5.5 H (3.5-5.1) mEq/L Chloride 106 105 102 (98-107) mEq/L Carbon Dioxide 16 L 15 L 16 L (23-29) mEq/L BUN 55 H 55 H 58 H (8-23) mg/dL Creatinine 2.22 H 2.28 H 2.22 H (0.60-1.20) mg/dL Glucose 85 82 135 H (70-105) mg/dL Calcium 7.0 L 7.3 L 7.1 L (8.6-10.3) mg/dL 04/29/18 Range/Units 02:58 Sodium 130 L (136-145) mEq/L Potassium 5.5 H (3.5-5.1) mEq/L Chloride 102 (98-107) mEq/L Carbon Dioxide 14 L (23-29) mEq/L BUN 59 H (8-23) mg/dL Creatinine 2.22 H (0.60-1.20) mg/dL Glucose 126 H (70-105) mg/dL Calcium 6.9 L (8.6-10.3) mg/dL Calcium panel 04/28/18 04/28/18 04/28/18 Range/Units 11:00 14:45 23:28 Calcium 7.0 L 7.3 L 7.1 L (8.6-10.3) mg/dL Phosphorus 4.5 (2.7-4.5) mg/dL 04/29/18 Range/Units 02:58 Calcium 6.9 L (8.6-10.3) mg/dL Phosphorus (2.7-4.5) mg/dL Pituitary panel 04/28/18 04/28/18 04/28/18 Range/Units 11:00 14:45 23:28 Sodium 132 L 132 L 130 L (136-145) mEq/L Potassium 5.7 H 5.7 H 5.5 H (3.5-5.1) mEq/L Chloride 106 105 102 (98-107) mEq/L Carbon Dioxide 16 L 15 L 16 L (23-29) mEq/L BUN 55 H 55 H 58 H (8-23) mg/dL Creatinine 2.22 H 2.28 H 2.22 H (0.60-1.20) mg/dL Glucose 85 82 135 H (70-105) mg/dL Calcium 7.0 L 7.3 L 7.1 L (8.6-10.3) mg/dL 04/29/18 Range/Units 02:58 Sodium 130 L (136-145) mEq/L Potassium 5.5 H (3.5-5.1) mEq/L Chloride 102 (98-107) mEq/L Carbon Dioxide 14 L (23-29) mEq/L BUN 59 H (8-23) mg/dL Creatinine 2.22 H (0.60-1.20) mg/dL Glucose 126 H (70-105) mg/dL Calcium 6.9 L (8.6-10.3) mg/dL Adrenal panel 04/28/18 04/28/18 04/28/18 Range/Units 11:00 14:45 23:28 Sodium 132 L 132 L 130 L (136-145) mEq/L Potassium 5.7 H 5.7 H 5.5 H (3.5-5.1) mEq/L Chloride 106 105 102 (98-107) mEq/L Carbon Dioxide 16 L 15 L 16 L (23-29) mEq/L BUN 55 H 55 H 58 H (8-23) mg/dL Creatinine 2.22 H 2.28 H 2.22 H (0.60-1.20) mg/dL Glucose 85 82 135 H (70-105) mg/dL Calcium 7.0 L 7.3 L 7.1 L (8.6-10.3) mg/dL 04/29/18 Range/Units 02:58 Sodium 130 L (136-145) mEq/L Potassium 5.5 H (3.5-5.1) mEq/L Chloride 102 (98-107) mEq/L Carbon Dioxide 14 L (23-29) mEq/L BUN 59 H (8-23) mg/dL Creatinine 2.22 H (0.60-1.20) mg/dL Glucose 126 H (70-105) mg/dL Calcium 6.9 L (8.6-10.3) mg/dL - VTE Documentation of Mechanical Device: Graduated compression elastic hosiery Consult Discharge Plan - Plan Referrals: Lizz Ariza CNP [Primary Care Provider] - Sandeep Singh Jr, MD [Family Provider] - Luisito Pedroza MD [Partnered Physician] - 05/04/18 9:00 am Prescriptions: OxyCODONE/APAP 10/325 [Percocet 10/325 MG] 1 each PO Q8HR PRN 3 Days #9 tablet PRN Reason: MILD TO MODERATE <Ammon Loving - Last Filed: 04/29/18 13:28> Date of Encounter: 04/29/18 - Assessment and Plan (1) Colon cancer metastasized to multiple sites Current Visit: Yes Status: Acute Objective Vital Signs - Last 8 Hours Pulse Resp BP Pulse Ox 04/29/18 11:00 99 28 93/58 90 04/29/18 10:00 100 30 98/62 91 04/29/18 09:00 97 28 95/55 91 04/29/18 08:00 97 28 92/54 90 04/29/18 07:51 97 04/29/18 07:00 96 26 86/52 93 04/29/18 06:00 96 19 95/64 96 Intake and Output 04/28/18 04/29/18 04/29/18 23:59 07:59 15:59 Intake Total 608 / 608 608 / 608 1658 / 1658 Output Total 20 / 20 50 / 50 Balance 588 / 588 558 / 558 1658 / 1658 Intake: IV Fluids 608 / 608 608 / 608 1658 / 1658 Flexbumin 25 gm In 100 ml @ 60 100 / 100 mls/hr IVC .Q1H40M [facility] Rx#: [id number] Levophed 4 MG In Dextrose 5% 508 / 508 250 ML @ 0.5 MCG/MIN 1.9 mls/hr IVC CONT [facility] Rx#:[id number] Levophed 8 MG In Dextrose 5% 508 / 508 508 / 508 500 ML @ 0.5 MCG/MIN 1.9 mls/hr IVC CONT [facility] Rx#:[id number] Sodium Bicarbonate 150 MEQ In 1150 / 1150 Dextrose 5% 1,000 ML @ 75 mls/ hr IVC .[id number] [facility] Rx#: [id number] Zosyn 3.375 GM In 0.9 % Sodium 100 / 100 Chloride (Mini-Bag +) 100 ML @ 25 mls/hr IVPB Q12H [facility] Rx#: [id number] Oral 0 / 0 0 / 0 Output: Catheter 20 / 20 50 / 50 Other: Weight 69.48 kg Blood Glucose* 117 128 Patient Weight 04/29/18 23:59 Weight 69.48 kg - Labs 04/29/18 02:58 04/29/18 02:58 Diabetes panel 04/28/18 04/28/18 04/29/18 Range/Units 14:45 23:28 02:58 Sodium 132 L 130 L 130 L (136-145) mEq/L Potassium 5.7 H 5.5 H 5.5 H (3.5-5.1) mEq/L Chloride 105 102 102 (98-107) mEq/L Carbon Dioxide 15 L 16 L 14 L (23-29) mEq/L BUN 55 H 58 H 59 H (8-23) mg/dL Creatinine 2.28 H 2.22 H 2.22 H (0.60-1.20) mg/dL Glucose 82 135 H 126 H (70-105) mg/dL Calcium 7.3 L 7.1 L 6.9 L (8.6-10.3) mg/dL Calcium panel 04/28/18 04/28/18 04/29/18 Range/Units 14:45 23:28 02:58 Calcium 7.3 L 7.1 L 6.9 L (8.6-10.3) mg/dL Pituitary panel 04/28/18 04/28/18 04/29/18 Range/Units 14:45 23:28 02:58 Sodium 132 L 130 L 130 L (136-145) mEq/L Potassium 5.7 H 5.5 H 5.5 H (3.5-5.1) mEq/L Chloride 105 102 102 (98-107) mEq/L Carbon Dioxide 15 L 16 L 14 L (23-29) mEq/L BUN 55 H 58 H 59 H (8-23) mg/dL Creatinine 2.28 H 2.22 H 2.22 H (0.60-1.20) mg/dL Glucose 82 135 H 126 H (70-105) mg/dL Calcium 7.3 L 7.1 L 6.9 L (8.6-10.3) mg/dL Adrenal panel 04/28/18 04/28/18 04/29/18 Range/Units 14:45 23:28 02:58 Sodium 132 L 130 L 130 L (136-145) mEq/L Potassium 5.7 H 5.5 H 5.5 H (3.5-5.1) mEq/L Chloride 105 102 102 (98-107) mEq/L Carbon Dioxide 15 L 16 L 14 L (23-29) mEq/L BUN 55 H 58 H 59 H (8-23) mg/dL Creatinine 2.28 H 2.22 H 2.22 H (0.60-1.20) mg/dL Glucose 82 135 H 126 H (70-105) mg/dL Calcium 7.3 L 7.1 L 6.9 L (8.6-10.3) mg/dL - Attending Attestation I examined this patient and my medical decision-making was reviewed with the Resident Physician. I agree with the documented findings, disposition and treatment plan as described except to the extent set forth below. The patient seen and evaluated on morning rounds with the resident. Her condition worsened dramatically overnight. She likely will not survive another 24 hours. I spent a good deal of time with the family this morning. Terminal care Ammon Loving MD FACS
[2018-04-29 11:47] VITALS: BP 93/58
--- NOTE | 2018-04-29 17:54 | Death Note ---
Pronouncement Note - Date and Time of Date of : 04/29/18 Time of : 17:35 - PCOD Preliminary cause of : Sepsis - Additional Data Confirmation of : no pulse, no respirations, no heart sounds Family: at bedside Additional persons at bedside: other (RN at bedside) Attending/PCP notified?: Yes Attending physician: Magnus Rivera Was code activated?: No Autopsy requested?: No
--- NOTE | 2018-04-30 15:38 | Death Note ---
<Armin Hernandez - Last Filed: 04/30/18 16:30> Discharge Sum: Summary - Date and Time Date of admission: 04/15/18 22:04 Date of : 04/29/18 Time of : 17:35 - Summary Details: 77 year old female presented on 04/15/18 with chief complaint of abdominal pain and constipation. 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 Patient met with palliative care and decided to sign a DNR. She did elect to have palliative surgical management to relieve her obstruction on 04/20/2018. Patient was tolerating diet and appeared to be progressing well, but on 04/27/18 , she became hypotensive and hypoxic. Patient was fluid resuscitated, placed on supplemental oxygen, and started on Zosyn and micafungin. Abdominal CT and CXR showed pneumoperitoneum and pneumomediastinum. She was transferred to the ICU for closer management. Patient was complaining of abdominal pain and surgery was reconsulted, but they agreed on no further surgical intervention. Patient remained hypotensive despite administration of levophed and further fluid resuscitation. Patient developed acute kidney injury with a potassium of 5.5 and GFR of 22. She denied treatment with dialysis. Patient was not a good candidate for BIPAP due to abdominal distension and concern for aspiration, and she requested to not be intubated. Patient was initially alert and oriented upon arrival to ICU, but she became severely septic overnight and only became responsive to pain. Patient's mean arterial pressure was in the low 60s despite max doses of levophed. Patient's daughter, the JANA, decided to take her off pressure support once family had arrived. Levophed was stopped around 11 AM, and the patient was made entirely comfort care. Family remained at bedside and the patient was pronounced at 17:[address] Chris Adair. - Additional Data Confirmation of as documented by pronouncing clinician: no pulse, no respirations, no heart sounds Family: at bedside Additional persons at bedside: manuel, mental health social worker Attending physician: Magnus Rivera Was code activated?: No Advance directives: Yes Hospice patient?: No Discharge Sum: Diag - PCOD Probable Cause of : Sepsis Discharge Sum: Prov - Provider Primary care physician: Lizz Ariza CNP Admitting clinician: Negrito Travis Attending physician on admission: Magnus Rivera Consults: 04/22/18 16:30 Consult to Nutrition [CONS] Routine Comment: Consulting Provider: NUTRITION Reason for Dietary Consult: PO Supplementation 04/26/18 11:40 Consult to Physical Therapy [CONS] Stat Comment: Evaluate, develop and implement POC Reason for Consult: Increased weakness; originally set up for HH, concerned patient may need rehab. Possible DC but will need PT/OT eval if rehab recommended Does patient have active BEDREST order?: No Is patient medically & hemodynamically stable?: Yes Patient assessed for mobility or mobilized this visit?: No 04/26/18 11:41 Consult to Occupational Therapy [CONS] Stat Comment: Evaluate, develop and implement POC Reason for Consult: Increased weakness; originally set up for HH, concerned patient may need rehab. Possible DC but will need PT/OT eval if rehab recommended Does patient have active BEDREST order?: No Is patient medically & hemodynamically stable?: Yes Patient assessed for mobility or mobilized this visit?: No 04/28/18 08:41 Consult to Critical Care [CONS] Routine Consulting Provider: Pulm Crit Care [facility] Reason for Consult: Critical Care management Call Completed: Yes 04/28/18 09:22 Consult to Palliative Care [CONS] Routine Comment: Consulting Provider: Palliative Care [facility]un Reason for Consult: goals of care Call Completed: Yes Pronouncing clinician: Brendan Adair <Zander Mcdonald - Last Filed: 05/01/18 06:38> Discharge Sum: Summary - Date and Time Date of admission: 04/15/18 22:04 - Additional Data Attending physician: Magnus Rivera Discharge Sum: Prov - Provider Primary care physician: Lizz Ariza CNP Consults: 04/22/18 16:30 Consult to Nutrition [CONS] Routine Comment: Consulting Provider: NUTRITION Reason for Dietary Consult: PO Supplementation 04/26/18 11:40 Consult to Physical Therapy [CONS] Stat Comment: Evaluate, develop and implement POC Reason for Consult: Increased weakness; originally set up for HH, concerned patient may need rehab. Possible DC but will need PT/OT eval if rehab recommended Does patient have active BEDREST order?: No Is patient medically & hemodynamically stable?: Yes Patient assessed for mobility or mobilized this visit?: No 04/26/18 11:41 Consult to Occupational Therapy [CONS] Stat Comment: Evaluate, develop and implement POC Reason for Consult: Increased weakness; originally set up for HH, concerned patient may need rehab. Possible DC but will need PT/OT eval if rehab recommended Does patient have active BEDREST order?: No Is patient medically & hemodynamically stable?: Yes Patient assessed for mobility or mobilized this visit?: No 04/28/18 08:41 Consult to Critical Care [CONS] Routine Consulting Provider: [facility]m Crit [facility] [place] Reason for Consult: Critical Care management Call Completed: Yes 04/28/18 09:22 Consult to Palliative Care [CONS] Routine Comment: Consulting Provider: Palliative Care [facility]un Reason for Consult: goals of care Call Completed: Yes - Attending Attestation I examined this patient and my medical decision-making was reviewed with the Resident Physician. I agree with the documented findings, disposition and treatment plan as described except to the extent set forth below. We independently had [id number] contact with the patient
== END 2018-04-29 19:30 | disposition expired | DRG 356 ==
LOC: EMEROOARM 19:04 → 3ANU 19:04 → SUATTDRO 22:04 → 3ANU 22:50 → ICNU 04-28 08:48
PROVIDERS: ADMIT Internal Medicine; ATTEND Hospitalist